=== PATIENT | male | born 1960 | race Caucasian/White ===

== ENCOUNTER 2023-03-21 14:54 | Inpatient (IN) ==
--- NOTE | 2023-03-21 15:05 | ED Triage Note ---
Date of Service March 21, 2023 Provider in Triage Author: Trip Kolb History of Present Illness This patient was briefly evaluated while in triage. An abbreviated physical exam was performed. This patient is a 62-year-old Male who presents to the ED for evaluation of shortness of breath and elevated blood pressure. Patient was recently on amoxicillin for possible Lyme disease. Patient reports that he did have negative Lyme testing. Patient reports worsening lower extremity weakness. Patient denies any chest pain, but does report dizziness. He also reports numbness and tingling of his fingertips and feet. Physical Exam CONSTITUTIONAL: Healthy and well nourished. HEENT: No scleral icterus or conjunctival injection. RESPIRATORY: Clear to auscultation bilaterally with no wheezing, crackles, rhonchi or stridor. CARDIOVASCULAR: Regular rate and rhythm with no murmurs, rubs or gallops. MUSCULOSKELETAL: Full range of motion of all joints without discomfort. No peripheral edema appreciated. HEMATOLOGIC: No ecchymosis or petechiae. PSYCHIATRIC: Positive affect. NEUROLOGIC: Lower extremities are sensory intact. Initial orders for labs and / or imaging were placed and patient was placed in the waiting area until a bed is available. Please see further documentation for the full ED course.
--- NOTE | 2023-03-21 15:42 | XRay Report ---
XR chest 1V not portable CLINICAL HISTORY: weakness, HTN COMPARISON STUDY: No previous studies for comparison. FINDINGS: Lung volumes are normal. Lungs are clear. There is no pneumothorax or pleural effusion. The re is mild cardiomegaly. There is no evidence for pulmonary edema. IMPRESSION: No acute cardiopulmonary findings. Mild cardiomegaly. ACT 112: Negative or not required by law. Electronically signed by: Sami Collazo M.D. 03/21/2023 3:41 PM
[2023-03-21 16:39] LABS: Basophils # (auto) 0.05 K/uL (0.00-0.20); Basophils % (auto) 0.8 %; Eosinophils # (auto) 0.13 K/uL (0.00-0.50); Eosinophils % (auto) 2.1 %; Hematocrit (blood only) 43.7 % (42.0-52.0); Hemoglobin 14.7 g/dl (14.0-18.0); Immature Granulocytes # (auto) 0.01 K/uL (0.01-0.20); Immature Granulocytes % (auto) 0.2 %; Lymphocytes # (auto) 1.08 K/uL (1.20-3.40); Lymphocytes % (auto) 17.2 %; Mean Corpuscular Hemoglobin 29.6 pg (25.0-34.0); Mean Corpuscular Hgb Conc 33.6 g/dL (32.0-36.0); Mean Corpuscular Volume 87.9 fL (80.0-100.0); Mean Platelet Volume 11.4 fL (9.4-12.4); Monocytes # (auto) 0.66 K/uL (0.11-0.59); Monocytes % (auto) 10.5 %; Neutrophils # (auto) 4.34 K/uL (1.40-6.50); Neutrophils % (auto) 69.2 %; Platelet Count 151 K/uL (130-400); RDW Standard Deviation 45.2 fL (36.4-46.3); Red Blood Count 4.97 M/uL (4.70-6.10); White Blood Count 6.27 K/ul (4.8-10.8)
[2023-03-21 16:57] LABS: Alanine Aminotransferase 21 U/L (7-52); Albumin Globulin Ratio 1.6 (0.9-2); Albumin Level 4.5 gm/dl (3.4-5.0); Alkaline Phosphatase 63 U/L (34-104); Anion Gap 8 (3-11); Aspartate Aminotransferase 16 U/L (13-39); BUN Creatinine Ratio 19.3 (10-20); Bilirubin,Total 0.5 mg/dl (0.2-1.0); Blood Urea Nitrogen 29 mg/dl (6-23); Calcium 9.7 mg/dl (8.6-10.3); Carbon Dioxide 27 mmol/L (21-32); Chloride 106 mmol/L (98-107); Est GFR (African American) 56.2 ml/min; Est GFR (Non-African American) 48.5 ml/min; Globulin 2.9 gm/dl (2.5-4.0); Glucose 142 mg/dl (70-99(Fasting)); Magnesium 1.9 mg/dl (1.7-2.4); Sodium 141 mmol/L (136-145); Total Protein 7.4 gm/dl (6.0-8.3)
[2023-03-21 17:04] LABS: Troponin I High Sensitivity 38.7 pg/ml (0-20)
[2023-03-21] MEDS ORDERED: LABETALOL HCL IV 5 MG/ML 20ML IV STA (17:30)
--- NOTE | 2023-03-21 17:42 | Emergency Department Note ---
Impression & Plan Weakness, Hypertensive urgency, Elevated troponin I level ED Provider Note NAME: AMAN RHOADES AGE: 62 SEX: M : 1960 ARRIVES VIA: Walk-In INFORMANT: Patient, ED PROVIDER(S): Iván Rose DO CHIEF COMPLAINT: Weakness HPI: The patient is a 62-year-old male who presented to the emergency department for an evaluation of generalized weakness. The patient's notes generalized weakness that has been going on for many months. The patient has had workups previously as an outpatient. He states his symptoms are continuing to worsen. He is afraid that he has a tickborne illness. The patient is noticed lower extremity weakness as well as upper extremity weakness. He also notices numbness and tingling in his upper and lower extremities. He had a workup which included neuroimaging as well as a workup by a neurologist. The patient states he is noticed his blood pressure has been difficult to manage. He has been compliant with his outpatient medications. He came to the emergency department today because of these ongoing symptoms. He denies having any chest pain. ROS: See above HPI for pertinent positives & negatives. A total of 10 systems reviewed and were otherwise negative. PAST MEDICAL HISTORY: See Below PAST SURGICAL HISTORY: See Below FAMILY HISTORY: See Below SOCIAL HISTORY: See Below HOME MEDICATIONS: See Below ALLERGIES: See Below VITALS: See Below PHYSICAL EXAMINATION: GENERAL: Patient is awake alert in no acute distress patient is resting comfortably and showing no signs of anxiety EYES: The conjunctivae are clear. The pupils are round and reactive. EARS, NOSE, MOUTH AND THROAT: The nose is without any evidence of any deformity. NECK: The neck is nontender and supple. RESPIRATORY: Normal respiratory effort is noted there is no evidence of wheezing rhonchi or rales CARDIOVASCULAR: Regular rate and rhythm noted there no murmurs rubs or gallops normal S1 normal S2. GASTROINTESTINAL: The abdomen is soft. Abdomen is nontender. MUSCULOSKELETAL/EXTREMITIES: There is no evidence of gross deformity full range of motion is noted in the hips and shoulders. SKIN: Skin is warm and dry. Pedal edema was noted bilaterally NEUROLOGIC: Patient is awake alert and oriented x3 strength is symmetric patellar reflexes are 2+ bilaterally MEDICAL DECISION MAKING: The patient is a 62-year-old male who has a history of hypertension who presented to the emergency department with multiple complaints. The patient's had ongoing symptoms for many months although today he seems to have some new findings including an elevation in his troponin as well as elevated blood pressure. I discussed the patient's laboratory and radiographic studies with him. Given his findings I discussed his condition with the on-call [facility] hospitalist group. They have agreed to evaluate the patient in the emergency department for further management and disposition. Triage Nursing notes reviewed. Prior medical records reviewed Vital Signs: reviewed and remarkable for elevated blood pressure. Differential diagnosis: Infection, dehydration, metabolic abnormality, hypo/hyperglycemia, electrolyte disturbance, anemia, hypoxia, cardiac sources, intracerebral event, toxicologic, neurologic, as well as other pathologies. ER treatment provided: See below Diagnostics interpreted by me: ECG: EKG was obtained in the emergency department. My interpretation is sinus rhythm at 74 bpm. Right bundle branch block pattern was noted. First-degree AV block was noted. No previous tracing was available. Cardiac Monitoring: An order was placed for continuous cardiac monitoring. The monitor shows a rate of 71 bpm with sinus rhythm. Laboratory studies: As stated above and show below. Imaging studies: See below. Radiographic imaging was reviewed by myself Consultation(s): I discussed this case with Dr. Saldana who is on-call for the [facility] hospitalist group. Past Med/Surg History Medical History Vitamin B12 deficiency Elevated blood sugar Numbness and tingling of both lower extremities Numbness and tingling in both hands Abnormal ankle brachial index Nonhealing nonsurgical wound PVD (peripheral vascular disease) Hypertension H/o Lyme disease Social History Smoking Status: Never smoker Hx Alcohol Use: No Hx Substance Use: No Preferred Language: Syriac Communication Ability: Effective Visual Impairment: No Limitations Hearing Ability: Normal Financial Intern Required: No Beliefs That Will Affect Care: None marital status: Unknown Current Living Situation: Family Current Living Situation Comment: living with brother and sister in law current occupational status: unemployed Feels Safe at Home: Yes caffeine: Yes during the past year weight has: remained stable Assistive Devices: Walker and Wheelchair Allergies Allergies Allergy/AdvReac Type Severity Reaction Status Date / Time Doxycycline Allergy Mild Urticaria Uncoded 03/21/23 20:23 Home Meds Home Medications Medication Instructions Recorded Confirmed losartan 50 mg tablet 50 mg PO DAILY 03/03/23 03/21/23 metronidazole 500 mg tablet 500 mg PO DAILY 03/03/23 03/21/23 minocycline 100 mg capsule 200 mg PO DAILY 03/03/23 03/21/23 ibuprofen 200 mg tablet 400 mg PO Q6H PRN Pain 03/21/23 03/21/23 Results & Data (ED) Vital Signs Vital Signs - 24 hr 03/21/23 15:00 03/21/23 17:48 03/21/23 17:52 Temperature 36.4 C L Temperature Source Temporal Artery Scan Temporal Artery Scan Pulse Rate 87 Pulse Rate [Apical] 62 Pulse Rate from SpO2 Sensor Pulse Rhythm [Apical] Regular Pulse Strength [Apical] Normal Respiratory Rate 18 13 Respiratory Effort / Characteristics Non-Labored Spontaneous Respiratory Depth Normal Normal Respiratory Pattern Regular Blood Pressure 236/134 H Blood Pressure [Right Arm] 236/170 H Blood Pressure Mean 168 Blood Pressure Mean [Right Arm] 192 Blood Pressure Position Sitting Blood Pressure Position [Right Arm] Semi-fowlers Pulse Oximetry 97 98 98 Oxygen Delivery Method Room Air Room Air Room Air Sepsis Recent Fever Within 48 Hours No Sepsis New/Unexplained Change in Mental Status No Sepsis Action Taken by Nursing No Action Required 03/21/23 17:52 03/21/23 17:54 03/21/23 18:04 Temperature Temperature Source Pulse Rate 58 L 57 L Pulse Rate [Apical] Pulse Rate from SpO2 Sensor 60 Pulse Rhythm [Apical] Pulse Strength [Apical] Respiratory Rate 16 Respiratory Effort / Characteristics Respiratory Depth Respiratory Pattern Blood Pressure 200/126 H Blood Pressure [Right Arm] Blood Pressure Mean 150 Blood Pressure Mean [Right Arm] Blood Pressure Position Blood Pressure Position [Right Arm] Pulse Oximetry 98 Oxygen Delivery Method Room Air Sepsis Recent Fever Within 48 Hours Sepsis New/Unexplained Change in Mental Status Sepsis Action Taken by Nursing 03/21/23 18:13 03/21/23 18:15 03/21/23 19:01 Temperature Temperature Source Pulse Rate 56 L 55 L 59 L Pulse Rate [Apical] Pulse Rate from SpO2 Sensor 52 L Pulse Rhythm [Apical] Pulse Strength [Apical] Respiratory Rate 19 15 Respiratory Effort / Characteristics Respiratory Depth Respiratory Pattern Blood Pressure 193/108 H 193/108 H 227/113 H Blood Pressure [Right Arm] Blood Pressure Mean 136 151 Blood Pressure Mean [Right Arm] Blood Pressure Position Blood Pressure Position [Right Arm] Pulse Oximetry 97 Oxygen Delivery Method Sepsis Recent Fever Within 48 Hours Sepsis New/Unexplained Change in Mental Status Sepsis Action Taken by Nursing 03/21/23 19:28 03/21/23 19:30 Temperature Temperature Source Pulse Rate 63 61 Pulse Rate [Apical] Pulse Rate from SpO2 Sensor 61 61 Pulse Rhythm [Apical] Pulse Strength [Apical] Respiratory Rate 22 21 Respiratory Effort / Characteristics Respiratory Depth Respiratory Pattern Blood Pressure 214/112 H 179/121 H Blood Pressure [Right Arm] Blood Pressure Mean 146 140 Blood Pressure Mean [Right Arm] Blood Pressure Position Blood Pressure Position [Right Arm] Pulse Oximetry 95 97 Oxygen Delivery Method Sepsis Recent Fever Within 48 Hours Sepsis New/Unexplained Change in Mental Status Sepsis Action Taken by [facility] Medications Current Medication List: was personally reviewed by me Laboratory Data Attestation: I reviewed the patient's lab results. 03/21/23 16:13 03/21/23 16:13 Lab Results 03/21/23 03/21/23 Range/Units 16:13 19:20 WBC 6.27 (4.8-10.8) K/ul RBC 4.97 (4.70-6.10) M/uL Hgb 14.7 (14.0-18.0) g/dl Hct 43.7 (42.0-52.0) % MCV 87.9 (80.0-100.0) fL MCH 29.6 (25.0-34.0) pg MCHC 33.6 (32.0-36.0) g/dL RDW Std Deviation 45.2 (36.4-46.3) fL RDW Coeff of [place] 14.0 (11.5-14.5) % Plt Count 151 (130-400) K/uL MPV 11.4 (9.4-12.4) fL Immature Gran % (Auto) 0.2 % Neut % (Auto) 69.2 % Lymph % (Auto) 17.2 % [place] % (Auto) 10.5 % Eos % (Auto) 2.1 % Baso % (Auto) 0.8 % Neut # (Auto) 4.34 (1.40-6.50) K/uL Lymph # (Auto) 1.08 L (1.20-3.40) K/uL [place] # (Auto) 0.66 H (0.11-0.59) K/uL Eos # (Auto) 0.13 (0.00-0.50) K/uL Baso # (Auto) 0.05 (0.00-0.20) K/uL Immature Gran # (Auto) 0.01 (0.01-0.20) K/uL Sodium 141 (136-145) mmol/L Potassium 4.0 (3.5-5.1) mmol/L Chloride 106 (98-107) mmol/L Carbon Dioxide 27 (21-32) mmol/L Anion Gap 8 (3-11) BUN 29 H (6-23) mg/dl Creatinine 1.50 H (0.6-1.4) mg/dl Est Cr Clr Drug Dosing Not Reportable Est GFR ( Amer) 56.2 ml/min Est GFR (Non-Af Amer) 48.5 ml/min BUN/Creatinine Ratio 19.3 (10-20) Glucose 142 H (70-99(Fasting)) mg/dl Calcium 9.7 (8.6-10.3) mg/dl Magnesium 1.9 (1.7-2.4) mg/dl Total Bilirubin 0.5 (0.2-1.0) mg/dl AST 16 (13-39) U/L ALT 21 (7-52) U/L Alkaline Phosphatase 63 (34-104) U/L Total Creatine Kinase 58 (30-223) U/L Troponin I High Sens 38.7 H 42.1 H (0-20) pg/ml Total Protein 7.4 (6.0-8.3) gm/dl Albumin 4.5 (3.4-5.0) gm/dl Globulin 2.9 (2.5-4.0) gm/dl Albumin/Globulin Ratio 1.6 (0.9-2) TSH 1.770 (0.300-4.500) uIu/ml Administered Medications Nicardipine HCl 25 mg/ Sodium (Chloride) 250 mls @ 50 mls/hr IV .Q5H [facility]; Protocol Stop: 04/20/23 18:29 Last Titration: 03/21/23 21:36 Dose: 5 mg/hr, 50 mls/hr Documented By: Titration: 03/21/23 21:22 Dose: 7.5 mg/hr, 75 mls/hr Documented By: Titration: 03/21/23 21:21 Dose: 10 mg/hr, 100 mls/hr Documented By: Titration: 03/21/23 20:03 Dose: 7.5 mg/hr, 75 mls/hr Documented By: Admin: 03/21/23 19:17 Dose: 5 mg/hr, 50 mls/hr Documented By: CPB Co-signed By: DUNIA Discontinued Medications Aspirin (Aspirin 81 Mg Chew) 324 mg PO NOW STA Stop: 03/21/23 20:22 Last Admin: 03/21/23 20:37 Dose: 324 mg Documented By: CPB Labetalol HCl (Labetalol Hcl Iv 5 Mg/Ml 20ml) 10 mg IV NOW STA Stop: 03/21/23 17:31 Last Admin: 03/21/23 17:49 Dose: 10 mg Documented By: DUNIA Co-signed By: Imaging Data Attestation: I personally reviewed and interpreted this imaging study as follows: My Impression: CT the brain was obtained in the emergency department. My interpretation is no free air or signs of bowel obstruction, final report below. 1 view chest x-ray was obtained in the emergency department. My interpretation is no free air or definite infiltrate, final report below Radiologist's Impression: Chest X-Ray 03/21/23 15:05 XR chest 1V not portable CLINICAL HISTORY: weakness, HTN COMPARISON STUDY: No previous studies for comparison. FINDINGS: Lung volumes are normal. Lungs are clear. There is no pneumothorax or pleural effusion. There is mild cardiomegaly. There is no evidence for pulmonary edema. IMPRESSION: No acute cardiopulmonary findings. Mild cardiomegaly. ACT 112: Negative or not required by law. Electronically signed by: Sami Collazo M.D. 03/21/2023 3:[address] 03/21/23 17:30 CT OF THE HEAD WITHOUT CONTRAST CLINICAL HISTORY: Weakness. COMPARISON STUDY: No previous studies for comparison. CT DOSE: 1250.21 mGy.cm TECHNIQUE: Helical axial images of the head were obtained without IV contrast. Automated exposure control was utilized for the study. A dose lowering technique was utilized adhering to the principles of ALARA. FINDINGS: This study is mildly compromised by motion artifact. No acute intracranial hemorrhage, midline shift or mass effect is present. Ventricular system is unremarkable. Basal cisterns are patent. There are no extra-axial collections. 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 There is an additional 2.4 cm hypodensity within the left cerebellar hemisphere. There may be an old lacunar infarct within the right cerebellar hemisphere. White matter hypodensities suggest small vessel disease. No calvarial fractures are present. IMPRESSION: 1. No acute intracranial hemorrhage or mass effect. 2. Hypodensities within the bilateral cerebellar hemispheres. Several of these likely reflect small old infarcts. However, a 2.4 cm hypodense focus within the left cerebellar hemisphere favors an age indeterminate infarct. MRI could be obtained as indicated. 3. Exam mildly compromised by motion artifact. ACT 112: Negative or not required by law. Electronically signed by: Sami Collazo M.D. 03/21/2023 6:37 PM Renal Artery Duplex 03/21/23 18:41 Exam(s): US VASCULAR EXAM: US Duplex Arterial/Venous of the Kidneys, Complete CLINICAL HISTORY: Reason for exam: severe persistent HTN. TECHNIQUE: Real-time duplex ultrasound scan of the kidneys integrating B-mode two- dimensional vascular structure, Doppler spectral analysis and color flow Doppler imaging. COMPARISON: No relevant prior studies available. FINDINGS: Right renal arteries: Peak systolic velocity within the right renal artery is 84 cm/s. Normal waveform. Left renal arteries: The proximal left renal artery is not visualized. Within the visualized portion of the left renal artery the peak systolic velocity is 65 cm/s. Renal veins: Main left renal vein is patent. Main right renal vein is patent. Right kidney: Right kidney measures 11.9 cm. No hydronephrosis. No tardus parvus waveforms within bilateral renal parenchyma. Left kidney: Left kidney measures 11.9 cm. IMPRESSION: No acute findings in the renal vasculature. No elevated velocities within the visualized main renal arteries. No evidence of hemodynamically significant renal artery stenosis. Electronically signed by: Luis Aaron M.D. 03/21/23 21:32 PM Discharge Plan Visit Data Chief Complaint: Shortness of Breath/Dyspnea Stated Complaint: CHEST PRESSURE, HYPERTENSION, BLE NUMB, WEAK ED Provider: Iván Rose Discharge Problem: Weakness, Hypertensive urgency, Elevated troponin I level Patient Disposition: Admitted As Inpatient Discharge Instructions Interventions: ED Discharge Assessment Last Done: 03/21/23 21:03
--- NOTE | 2023-03-21 18:05 | History & Physical Report ---
Date of Service March 21, 2023 Assessment & Plan (1) Weakness: Plan: Bilateral lower extremity weakness ? CVA versus lumbar Chronic weakness of the lower extremities which is bilaterally worse morning of 03/21/2023. Has been chronically declining for several weeks. Patient versus chronic right hip pain which limits his hip flexion and ambulation. Does feel his right leg has been more weak than the left since waking up this morning No bowel/bladder incontinence, no saddle anesthesia. Has neuropathy of the lower extremities bilaterally without asymmetry and which has not changed Endorses some recent difficulty with balance -Patient with lacunar old strokes and age-indeterminate cerebellar stroke on CT. No MCA or large territory stroke. Patient reports that he has difficulty laying flat for MRIs. With multiple risk factors and old and age-indeterminate stroke noted on CT and uncontrolled hypertension requires additional stroke evaluation on admission .to minimize MRI time and contrast with? RAZA/CKD MRI/A brain carotid ultrasounds ordered, MRI of the lumbar spine ordered Due to difficult to control hypertension and bradycardia will target initial control with nicardipine drip. Due to possible acute/subacute stroke discussed goal parameters with neurology. Recommend targeting goal of [id number] at this time. Agree with aspirin and atorvastatin. Appreciate recommendations No focal tenderness to palpation at hip, x-ray is pending (2) Hypertensive urgency: Plan: Hypertensive urgency With evidence of lacunar strokes on CTs, and renal dysfunction Patient with difficult to control hypertension and beta-blockers/CCB limited by bradycardia. Patient reports a history of Lyme disease and has first-degree heart block. Reports he has had no blood pressure improvement in the past on carvedilol, metoprolol, losartan, lisinopril. Renal artery Dopplers ordered for JONY evaluation. If renal function stable may trial spironolactone, does report he has been on a potassium supplement for low potassium with resistant hypertension in the past (3) PVD (peripheral vascular disease): Plan: With poor wound healing and bilateral grafts as depicted in PE Arterial Dopplers ordered with ABIs, pending. No acute/emergent limb ischemia on admitting assessment (4) History of CVA (cerebrovascular accident): Plan: With lacunar strokes likely due to uncontrolled hypertension, age- indeterminate cerebellar stroke with evaluation pending as above. Aspirin/statin/hypertensive management as noted (5) Lyme disease: Plan: Patient reports he has had history of multiple tick bites and chronic Lyme disease. Has been on multiple antibiotics including amoxicillin doxycycline and atovaquone. Recent Lyme testing was negative. Patient reports he had improvement with his symptoms with antibiotics previously, but not recently. Does have history of first-degree heart block which remains present No additional treatment for Lyme indicated at this time. Did discuss that ongoing antibiotics for "chronic Lyme "was not with evidence-based support, although Lyme disease may cause chronic sequelae and some patients this does not represent ongoing infection. Patient agreeable to treatment as above and deferring antibiotics at this (6) RAZA (acute kidney injury): Plan: Unclear baseline. Creatinine 1.41 on last outpatient check, 1.5 on admission. Likely hypertensive nephropathy, DDx includes diabetic nephropathy. UA/urine protein (7) DM2 (diabetes mellitus, type 2): Plan: Patient has a A1c less than 7% diet controlled.. Prefers to avoid insulin if possible, will follow blood sugar checks as needed. He is n.p.o. pending Dopplers. SSI insulin at this time with goal [id number] Plan DVT prophylaxis: Heparin due to RAZA Disposition: PCU CODE STATUS: Full code Diet: N.p.o. pending renal Dopplers, heart healthy/DM2 once History of Present Illness Primary Care Provider: Janessa Fowler is a 62-year-old male with a past medical history of hypertensive urgency, peripheral vascular disease Patient last seen by PCP 01/2023. Was noted to have a blood pressure of 208/110 at that time and reported "this was normal for me ". Did discuss that this represented uncontrolled hypertension at that time, and had not had any improvement on losartan. 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 No unilateral symptoms. Extensive counseling was had at that time due to risk of ID, CVA, renal damage due to uncontrolled hypertension however patient insistent that his symptoms are due to tickborne illnesses and declined any additional testing or medications for blood pressure control at that visit. Also has peripheral vascular disease with recurrent decubitus ulcer requiring wound VAC treatment, again insistent that this was due to tickborne illness and not hypertension or diabetes and declined additional workup including arterial duplex studies and diabetes testing. Did agree to an A1c but was adamant he would not take any prescription medications. He did however obtain Plaquenil [id number] for the treatment of chronic Lyme/babesiosis which she feels was the cause of his symptoms. Patient followed up with neurology 03/17/2023 for uncontrolled BP greater than 220/120 refusing ER admission who was seen for numbness and tingling of his hands and feet for 2 years without improvement on gabapentin/Lyrica. Distant EMG consistent with diabetic neuropathy, last A1c was 6.3%. Patient was seen in the ER for weakness for several months. Has had progressively worsening symptoms and is afraid of tickborne illness. He has bilateral lower and upper extremity weakness. X-ray x-ray is without acute findings Creatinine is 1.5, last 1.4. Troponin 38.7 with no baseline. Viral panel pending. Lyme disease IgG/IgM - 03/17/2023 Family members have had bartonella, erlichiosis, Tried amoxicillin, augmentin, and doxycycline with no improvement in his strength in the hands and feet. Dropoff in strength in hands, feet 3 weeks ago, picked up by brother 3 months ago. Walks with a walker and had 'barely any strength left at all.' BP generally high BP 5.9% BSGs 100-103 Carvedilol and losartan cause his [place], brings his BP down to 235 from 280s. Cr slightly elevated at baseline 'slightly above normal'. Has had intermittent R chest pressure, none currently and declines pain Graft to poorly healing wound in left side posterior calf. This was done in [facility], also had a graft in [place] on his RIGHT side. heals poorly and feet tend to be very dry. Pt was using 720nm blue light to heal, found this to be the only helpful tx also has many disagreements with [facility] regarding this No fevers, but is cold 'all of the time. Never get warm.' Feels he does not sweat, is not wet but evaporates fluid quickly. Had a [facility] some R eye blurriness/weakness. Had had double vision for 3-4 days while in [place] and at home. No history of strokes. Hx L minor stroke. Was started on BP meds. Cannot take morphine. Currently taking losartan, took today. Previously on plaquenil for chronic lyme, did not help at all. Atovaquone Medical History: Reviewed Medications: Reviewed Surgical History: Reviewed Family history: Reviewed Allergies: Reviewed Social History: No tobacco or ETOH Code Status: Full Code Allergies Allergy/AdvReac Type Severity Reaction Status Date / Time Doxycycline Allergy Mild Urticaria Uncoded 03/10/23 08:48 Home Medications Medication Instructions Recorded Confirmed Type azithromycin 250 mg tablet 250 mg PO DAILY 03/03/23 03/17/23 History hydroxychloroquine 200 mg tablet 200 mg PO DAILY 03/03/23 03/17/23 History losartan 50 mg tablet 50 mg PO DAILY 03/03/23 03/17/23 History metronidazole 500 mg tablet 500 mg PO DAILY 03/03/23 03/17/23 History minocycline 100 mg capsule 200 mg PO DAILY 03/03/23 03/17/23 History Past Med/Surg History Medical History Vitamin B12 deficiency Elevated blood sugar Numbness and tingling of both lower extremities Numbness and tingling in both hands Abnormal ankle brachial index Nonhealing nonsurgical wound PVD (peripheral vascular disease) Hypertension H/o Lyme disease Social History Smoking Status: Never smoker Hx Alcohol Use: No Hx Substance Use: No Preferred Language: [place] Communication Ability: Effective Visual Impairment: No Limitations Hearing Ability: Normal Metal Tile Lather Required: No Beliefs That Will Affect Care: None marital status: Unknown Current Living Situation: Family Current Living Situation Comment: living with brother and sister in law current occupational status: unemployed Feels Safe at Home: Yes caffeine: Yes during the past year weight has: remained stable Assistive Devices: Walker and Wheelchair Physical Exam 2 Physical Exam: General: A&Ox3. NAD. Cooperative. HEENT: Atraumatic, normocephalic. Vision/hearing intact. No visual field cuts. Pupils equal and reactive to light Pulm: CTAB A&P. -wheezes, -rales, -rhonchi. Symmetrical chest rise. No increased work of breathing. No respiratory distress. Cardiac: Regular, bradycardic, -mrg. Radial pulses intact and symmetrical. Abdominal: Nontender, nondistended, soft. BS present. Left hip flexion, ankle dorsiflexion/plantarflexion 5/5. Sensation soft touch is intact. No ankle clonus. Right lower extremity: Limited by discomfort at the hip, activates musculature but will not flex at the hip. Ankle dorsiflexion/plantarflexion 4/5. Sensation symmetrical with left. No saddle anesthesia LLE: RLE: RLE #2: Results & Data Results & Data Vital Signs (Past 12 Hours) Vital Signs Temp Pulse Pulse Resp BP BP Pulse Ox 03/21/23 17:54 58 L 03/21/23 17:52 03/21/23 17:52 98 03/21/23 17:48 62 13 236/170 H 98 03/21/23 15:00 36.4 C L 87 18 236/134 H 97 O2 Del Method 03/21/23 17:54 03/21/23 17:52 Room Air 03/21/23 17:52 Room Air 03/21/23 17:48 Room Air 03/21/23 15:00 Room Air PG Care Time/CCT Total # of Minutes Spent Total Time Spent with Patient: Total time spent is greater than 50% in coordination of care (as documented) at patient's floor/unit and/or counseling patient: Coding Level of Care Code 59008 INT INP/OBS CARE 3/75MIN Diagnoses Weakness R53.1 Hypertensive urgency I16.0 PVD (peripheral vascular disease) I73.9 History of CVA (cerebrovascular accident) Z86.73 Lyme disease A69.20 RAZA (acute kidney injury) N17.9 DM2 (diabetes mellitus, type 2) E11.9
[2023-03-21] MEDS ORDERED: STAT IV Infusion **Titration per Protocol STA (18:16)
--- NOTE | 2023-03-21 18:39 | CT Scan Report ---
CT OF THE HEAD WITHOUT CONTRAST CLINICAL HISTORY: Weakness. COMPARISON STUDY: No previous studies for comparison. CT DOSE: 1250.21 mGy.cm TECHNIQUE: Helical axial images of the head were obtained without IV contrast. Automated exposure con trol was utilized for the study. A dose lowering technique was utilized adhering to the principles o f ALARA. FINDINGS: This study is mildly compromised by motion artifact. No acute intracranial hemorrhage, midl ine shift or mass effect is present. Ventricular system is unremarkable. Basal cisterns are patent. T here are no extra-axial collections. Retrocerebellar CSF attenuation focus favors a gordo cisterna mag na. 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 There is an additional 2.4 cm hypodensity within the left cerebellar hemisphere. There may be an old lacunar infarct within the right cerebellar hemisphere. White matter hypodensities suggest small vessel disease. No calvarial f ractures are present. IMPRESSION: 1. No acute intracranial hemorrhage or mass effect. 2. Hypodensities within the bilateral cerebellar hemispheres. Several of these likely reflect small o ld infarcts. However, a 2.4 cm hypodense focus within the left cerebellar hemisphere favors an age in determinate infarct. MRI could be obtained as indicated. 3. Exam mildly compromised by motion artifact. ACT 112: Negative or not required by law. Electronically signed by: Sami Collazo M.D. 03/21/2023 6:37 PM
[2023-03-21 18:54] LABS: Adenovirus PCR Not Detected (NotDetected); Bordetella parapertussis PCR Not Detected (NotDetected); Bordetella pertussis PCR Not Detected (NotDetected); Chlamydia pneumoniae PCR Not Detected (NotDetected); Coronavirus 229E PCR Not Detected (NotDetected); Coronavirus CoV-2 (COVID19)PCR Not Detected (NotDetected); Coronavirus HKU1 PCR Not Detected (NotDetected); Coronavirus NL63 PCR Not Detected (NotDetected); Coronavirus OC43PCR Not Detected (NotDetected); Human Metapneumovirus PCR Not Detected (NotDetected); Influenza A PCR Not Detected (NotDetected); Influenza B PCR Not Detected (NotDetected); Mycoplasma pneumoniae PCR Not Detected (NotDetected); Parainfluenza Virus 1 PCR Not Detected (NotDetected); Parainfluenza Virus 2 PCR Not Detected (NotDetected); Parainfluenza Virus 3 PCR Not Detected (NotDetected); Parainfluenza Virus 4 PCR Not Detected (NotDetected); Respiratory Syncytial VirusPCR Not Detected (NotDetected); Rhinovirus/Enterovirus PCR Not Detected (NotDetected)
[2023-03-21] MEDS: niCARdipine 25 MG in SODIUM CHLORIDE 0.9% 240 ML IV SCH ×2 (19:17→23:36)
[2023-03-21] MEDS ORDERED: PHARMACIST DISCHARGE MED REC CONSULT PRN (19:17)
[2023-03-21 20:03] LABS: Troponin I High Sensitivity 42.1 pg/ml (0-20)
[2023-03-21] MEDS ORDERED: ASPIRIN 81 MG CHEW PO STA (20:21)
[2023-03-21] MEDS ORDERED: ACETAMINOPHEN 325 MG TAB PO PRN (21:02)
--- NOTE | 2023-03-21 21:33 | Ultrasound Report ---
Exam(s): US VASCULAR EXAM: US Duplex Arterial/Venous of the Kidneys, Complete CLINICAL HISTORY: Reason for exam: severe persistent HTN. TECHNIQUE: Real-time duplex ultrasound scan of the kidneys integrating B-mode two- dimensional vascular structure, Doppler spectral analysis and color flow Doppler imaging. COMPARISON: No relevant prior studies available. FINDINGS: Right renal arteries: Peak systolic velocity within the right renal artery is 84 cm/s. Normal waveform. Left renal arteries: The proximal left renal artery is not visualized. Within the visualized portion of the left renal artery the peak systolic velocity is 65 cm/s. Renal veins: Main left renal vein is patent. Main right renal vein is patent. Right kidney: Right kidney measures 11.9 cm. No hydronephrosis. No tardus parvus waveforms within bilateral renal parenchyma. Left kidney: Left kidney measures 11.9 cm. IMPRESSION: No acute findings in the renal vasculature. No elevated velocities within the visualized main renal arteries. No evidence of hemodynamically significant renal artery stenosis. Electronically signed by: Luis Aaron M.D. 03/21/23 21:32 PM
[2023-03-21] MEDS ORDERED: HYDROmorphone INJ 0.5 MG/0.5 ML SYR IV STA (23:02)
[2023-03-22 06:10] LABS: Basophils # (auto) 0.04 K/uL (0.00-0.20); Basophils % (auto) 0.6 %; Eosinophils # (auto) 0.15 K/uL (0.00-0.50); Eosinophils % (auto) 2.3 %; Hematocrit (blood only) 40.3 % (42.0-52.0); Hemoglobin 13.2 g/dl (14.0-18.0); Immature Granulocytes # (auto) 0.02 K/uL (0.01-0.20); Immature Granulocytes % (auto) 0.3 %; Lymphocytes # (auto) 1.25 K/uL (1.20-3.40); Mean Corpuscular Hemoglobin 28.7 pg (25.0-34.0); Mean Corpuscular Hgb Conc 32.8 g/dL (32.0-36.0); Mean Corpuscular Volume 87.6 fL (80.0-100.0); Monocytes % (auto) 12.2 %; Neutrophils # (auto) 4.31 K/uL (1.40-6.50); Neutrophils % (auto) 65.6 %; Platelet Count 134 K/uL (130-400); RDW Coefficient of Variation 14.3 % (11.5-14.5); RDW Standard Deviation 45.8 fL (36.4-46.3); White Blood Count 6.57 K/ul (4.8-10.8)
[2023-03-22 06:26] LABS: BUN Creatinine Ratio 16.4 (10-20); Calcium 8.9 mg/dl (8.6-10.3); Chol HDL Ratio 4.1 (0-5); Creatinine Clr Calc Pharmacy 75.2 ml/min; Est GFR (African American) 61.1 ml/min; Est GFR (Non-African American) 52.7 ml/min; Potassium 3.4 mmol/L (3.5-5.1)
--- NOTE | 2023-03-22 07:08 | XRay Report ---
XR hip RT 2V w pelvis CLINICAL HISTORY: R hip pain TECHNIQUE: 2 views of the right hip and single frontal view of the pelvis were obtained. Comparison: None available at the time of this dictation. FINDINGS: There is no evidence of an acute fracture. Severe degenerative changes are seen at the right hip join t with moderate degenerative changes in the left hip. Posterior fixation hardware is seen in the lumb osacral spine. No soft tissue abnormality is seen. IMPRESSION: Severe degenerative changes in the right hip joint without evidence of acute abnormality. ACT 112: Negative or not required by law. Electronically signed by: Momo Valdez M.D. 03/22/2023 7:07 AM
--- NOTE | 2023-03-22 07:34 | Ultrasound Report ---
BILATERAL CAROTID DOPPLER STUDY HISTORY: Weakness. Abnormal head CT. Possible stroke. ?CVA COMPARISON: None. TECHNIQUE: Real-time, grayscale, and color Doppler sonography of the carotid arteries was performed. Imaging reviewed in the transverse and longitudinal planes. All measurements were calculated based on NASCET criteria. FINDINGS: Antegrade flow is seen in the bilateral vertebral arteries. The peak systolic velocity within the right external carotid artery is 202 cm/s.. The peak systolic velocity within the right ICA is 82 cm/s. The right systolic ratio is 0.8. The peak systolic velocity within the left ICA is 70 cm/s. The left systolic ratio is 0.6. IMPRESSION: 1. No hemodynamically significant stenosis seen within the bilateral common or internal carotid arter ies. 2. Moderate stenosis within the right external carotid artery. ACT 112: Negative or not required by law. Electronically signed by: Satish Ayala M.D. 03/22/2023 7:32 AM
--- NOTE | 2023-03-22 07:56 | CT Scan Report ---
CT head/brain wo con CLINICAL HISTORY: stroke alert Technique: Contiguous axial CT images of the head were acquired from the base of the skull to the wendy win without intravenous contrast administration. Images were viewed in brain, subdural and [facility] . Automated dose lowering techniques and/or adjustment according to patient size were utilized for this exam. Comparison: Comparison is made to CT head 03/21/2023 Findings: Areas of decreased attenuation are present in the periventricular and subcortical white matter bilate rally consistent with small vessel ischemic disease. Generalized cerebral atrophy with commensurate e nlargement of the ventricles, sulci, and cisterns is also present. There is no acute intracranial hem orrhage or evidence of acute territorial infarction. No shift of the midline structures, mass effect, or extra-axial abnormalities are shown. Atherosclerotic calcifications are present in the intracran ial segments of the internal carotid arteries. A few foci of encephalomalacia are again seen most pro minently in the left cerebellum compatible with old infarcts. Imaged portions of the paranasal sinuses and mastoid air cells are clear. The orbits appear normal. There are no acute fractures of the calvaria or scalp swelling. Impression: No acute intracranial hemorrhage, no evidence of acute territorial infarction or other acute intracra nial disease process. ACT 112: Negative or not required by law. Electronically signed by: Momo Valdez M.D. 03/22/2023 7:55 AM
[2023-03-22 08:15] LABS: INR 1.1 (0.9-1.1); Prothrombin Time 11.9 Seconds (9.0-12.0)
--- NOTE | 2023-03-22 08:33 | Electrocardiogram Report ---
Test Reason : Blood Pressure : / mmHG Vent. Rate : 074 BPM Atrial Rate : 000 BPM P-R Int : 000 ms QRS Dur : 136 ms QT Int : 404 ms P-R-T Axes : 000 102 009 degrees QTc Int : 448 ms Poor data quality, interpretation may be adversely affected Sinus rhythm with 1st degree A-V block Right bundle branch block Nonspecific T wave abnormality Inferior leads Abnormal ECG No previous ECGs available Confirmed by James Alvarez ([id number]) on 03/22/2023 8:33:18 AM Referred By: REFERRED SELF Confirmed By:James Alvarez
[2023-03-22] MEDS ORDERED: CLOPIDOGREL BISULFATE 300 MG TAB PO STA (08:35)
--- NOTE | 2023-03-22 08:37 | Hospitalist Progress Note ---
Date of Service March 22, 2023 Assessment & Plan (1) Stroke-like symptoms: Plan: This morning the patient had a stroke alert He was noted to have garbled speech, left facial droop, left arm and leg weakness. During the episode the patient had blood pressure in the 220s/150s However, at 1 AM his blood pressure had dropped to 130/70s Head CT during the episode was negative for acute hemorrhage or infarct Teleneurology consulted This episode was most likely secondary to cerebral hypoperfusion from blood pressure being "too low" for him. He was seen by his PCP in January 2023 when his blood pressure was in the 200s/110s. He stated that this was normal blood pressure for him and declined antihypertensives. The blood pressure reading of 130/70 was probably too low for him and had most likely led to cerebral hypoperfusion leading to the strokelike symptoms. Will try to allow permissive hypertension and handle his blood pressure more gently. I will manage him with a Cardene drip with goal blood pressure no less than 180/100 Will keep his head end flat if he were to develop strokelike symptoms again to allow better perfusion to his brain. I will repeat his head CT in 24 hours Teleneurology had recommended aspirin and Plavix for 21 days but our in-house neurologist does not think that the Plavix is needed at this time. I will discontinue Plavix. He will be treated with aspirin, Lipitor PT/OT consulted Echocardiogram showed severe concentric LVH which is quite expected due to his longstanding high blood pressure. CTA of the head and neck were unremarkable. Carotid duplex was unremarkable. (2) Weakness: Plan: Bilateral lower extremity weakness ? CVA versus lumbar Chronic weakness of the lower extremities which is bilaterally worse morning of 03/21/2023. Has been chronically declining for several weeks. Patient versus chronic right hip pain which limits his hip flexion and ambulation. Does feel his right leg has been more weak than the left since waking up this morning No bowel/bladder incontinence, no saddle anesthesia. Has neuropathy of the lower extremities bilaterally without asymmetry and which has not changed Endorses some recent difficulty with balance -Patient with lacunar old strokes and age-indeterminate cerebellar stroke on CT. No MCA or large territory stroke. PT/OT consulted (3) Hypertensive urgency: Plan: Hypertensive urgency complicated by hypertensive heart disease and nephropathy With evidence of lacunar strokes on CTs, and renal dysfunction and severe concentric LVH Patient with difficult to control hypertension and beta-blockers/CCB limited by bradycardia. Patient reports a history of Lyme disease and has first-degree heart block. Reports he has had no blood pressure improvement in the past on carvedilol, metoprolol, losartan, lisinopril. Renal artery Dopplers ruled out renal artery stenosis. For the time being, we will treat him with IV Cardene drip with goal heart rate no less than 180/100 Will watch out for cerebral hypoperfusion Allow for permissive hypertension for the first 24 hours. (4) PVD (peripheral vascular disease): Plan: With poor wound healing and bilateral grafts as depicted in PE Arterial Dopplers ordered with ABIs, pending. No acute/emergent limb ischemia on admitting assessment (5) History of CVA (cerebrovascular accident): Plan: With lacunar strokes likely due to uncontrolled hypertension, age- indeterminate cerebellar stroke with evaluation pending as above. Aspirin/statin/hypertensive management as noted (6) Lyme disease: Plan: Patient reports he has had history of multiple tick bites and chronic Lyme disease. Has been on multiple antibiotics including amoxicillin doxycycline and atovaquone. Recent Lyme testing was negative. Patient reports he had improvement with his symptoms with antibiotics previously, but not recently. Does have history of first-degree heart block which remains present No additional treatment for Lyme indicated at this time. Did discuss that ongoing antibiotics for "chronic Lyme "was not with evidence-based support, alt ian Lyme disease may cause chronic sequelae and some patients this does not represent ongoing infection. Patient agreeable to treatment as above and deferring antibiotics at this (7) RAZA (acute kidney injury): Plan: Unclear baseline. Creatinine 1.41 on last outpatient check, 1.5 on admission. 1.4 today. Likely hypertensive nephropathy, DDx includes diabetic nephropathy. UA/urine protein (8) DM2 (diabetes mellitus, type 2): Plan: His A1c was 6.5 today. Continue sliding scale insulin Plan DVT prophylaxis: Heparin due to RAZA Disposition: Transfer from PCU to ICU CODE STATUS: Full code Diet: heart healthy/DM2 Admission and Anticipated Discharge Date Admission Date: March 21, 2023 Subjective I was informed by the nurse early this morning about new neurological symptoms of left-sided facial droop, left arm weakness. Immediately after, a stroke alert was called. I was at the patient's bedside within minutes. Patient indeed had a left-sided facial droop along with left arm and leg weakness. Patient was noted to have an elevated blood pressure of 220s/150s. A head CT was ordered that ruled out hemorrhage or an obvious infarct. Teleneurology was consulted. After patient came back from CT, his symptoms completely resolved within 15 minutes. Orders placed per teleneurology recommendations. Review of Systems Review of Systems: Other Unobtainable due to acute emergency stroke alert Physical Exam Physical Exam: General: Awake. Left facial droop noted. Garbled speech noted. Left arm and leg weakness noted. Heart: S1, S2/regular rate and rhythm, no murmur rubs or gallops Lungs: Clear to auscultation bilaterally. Normal effort Abdomen: Soft/nontender/nondistended. No hepatosplenomegaly Extremities: No clubbing/cyanosis. No edema Behavior: Appropriate, cooperative Results & Data Results & Data Vital Signs (Past 12 Hours) Vital Signs Temp Pulse Pulse Resp BP BP Pulse Ox 03/22/23 08:05 69 20 197/107 H 97 03/22/23 08:02 69 20 176/100 H 97 03/22/23 07:58 03/22/23 06:00 57 L 21 183/96 H 96 03/22/23 05:30 60 20 183/98 H 95 03/22/23 05:00 185/104 H 96 03/22/23 04:30 54 L 176/90 H 94 03/22/23 04:00 158/87 H 95 03/22/23 03:30 50 L 15 135/75 90 03/22/23 03:00 49 L 142/79 H 90 03/22/23 02:43 67 17 177/96 H 99 03/22/23 02:30 51 L 16 154/84 H 90 03/22/23 02:25 58 L 18 156/89 H 98 03/22/23 02:00 58 L 17 143/81 H 90 03/22/23 01:43 53 L 16 161/91 H 97 03/22/23 01:30 58 L 20 163/88 H 95 03/22/23 01:27 36.8 C 58 L 22 133/77 96 03/22/23 01:00 60 12 133/77 90 03/22/23 00:43 64 22 152/89 H 96 03/21/23 23:56 61 15 160/88 H 03/21/23 23:31 192/119 H 03/21/23 23:17 64 03/21/23 23:00 63 21 176/92 H 95 03/21/23 21:15 71 14 179/80 H 98 03/21/23 21:02 20 173/116 H 03/21/23 20:55 70 24 177/84 H 03/21/23 20:45 17 Pulse Ox O2 Del Method O2 Del Method 03/22/23 08:05 Room Air 03/22/23 08:02 Room Air 03/22/23 07:58 97 Room Air 03/22/23 06:00 03/22/23 05:30 03/22/23 05:00 03/22/23 04:30 03/22/23 04:00 03/22/23 03:30 03/22/23 03:00 03/22/23 02:43 03/22/23 02:30 03/22/23 02:25 03/22/23 02:00 03/22/23 01:43 03/22/23 01:30 03/22/23 01:27 Room Air 03/22/23 01:00 03/22/23 00:43 03/21/23 23:56 03/21/23 23:31 03/21/23 23:17 03/21/23 23:00 03/21/23 21:15 03/21/23 21:02 03/21/23 20:55 03/21/23 20:45 Laboratory Results Abnormal lab results 03/21/23 03/21/23 03/22/23 Range/Units 16:13 19:20 05:35 RBC 4.60 L (4.70-6.10) M/uL Hgb 13.2 L (14.0-18.0) g/dl Hct 40.3 L (42.0-52.0) % Lymph # (Auto) 1.08 L (1.20-3.40) K/uL [place] # (Auto) 0.66 H 0.80 H (0.11-0.59) K/uL Potassium 3.4 L (3.5-5.1) mmol/L BUN 29 H (6-23) mg/dl Creatinine 1.50 H (0.6-1.4) mg/dl Glucose 142 H 117 H (70-99(Fasting)) mg/dl Troponin I High Sens 38.7 H 42.1 H (0-20) pg/ml Diagnostic Findings Chest X-Ray 03/21/23 15:05 XR chest 1V not portable CLINICAL HISTORY: weakness, HTN COMPARISON STUDY: No previous studies for comparison. FINDINGS: Lung volumes are normal. Lungs are clear. There is no pneumothorax or pleural effusion. There is mild cardiomegaly. There is no evidence for pulmonary edema. IMPRESSION: No acute cardiopulmonary findings. Mild cardiomegaly. ACT 112: Negative or not required by law. Electronically signed by: Sami Collazo M.D. 03/21/2023 3:[address] 03/21/23 17:30 CT OF THE HEAD WITHOUT CONTRAST CLINICAL HISTORY: Weakness. COMPARISON STUDY: No previous studies for comparison. CT DOSE: 1250.21 mGy.cm TECHNIQUE: Helical axial images of the head were obtained without IV contrast. Automated exposure control was utilized for the study. A dose lowering technique was utilized adhering to the principles of ALARA. FINDINGS: This study is mildly compromised by motion artifact. No acute intracranial hemorrhage, midline shift or mass effect is present. Ventricular system is unremarkable. Basal cisterns are patent. There are no extra-axial collections. 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 There is an additional 2.4 cm hypodensity within the left cerebellar hemisphere. There may be an old lacunar infarct within the right cerebellar hemisphere. White matter hypodensities suggest small vessel disease. No calvarial fractures are present. IMPRESSION: 1. No acute intracranial hemorrhage or mass effect. 2. Hypodensities within the bilateral cerebellar hemispheres. Several of these likely reflect small old infarcts. However, a 2.4 cm hypodense focus within the left cerebellar hemisphere favors an age indeterminate infarct. MRI could be obtained as indicated. 3. Exam mildly compromised by motion artifact. ACT 112: Negative or not required by law. Electronically signed by: Sami Collazo M.D. 03/21/2023 6:37 PM Renal Artery Duplex 03/21/23 18:41 Exam(s): US VASCULAR EXAM: US Duplex Arterial/Venous of the Kidneys, Complete CLINICAL HISTORY: Reason for exam: severe persistent HTN. TECHNIQUE: Real-time duplex ultrasound scan of the kidneys integrating B-mode two- dimensional vascular structure, Doppler spectral analysis and color flow Doppler imaging. COMPARISON: No relevant prior studies available. FINDINGS: Right renal arteries: Peak systolic velocity within the right renal artery is 84 cm/s. Normal waveform. Left renal arteries: The proximal left renal artery is not visualized. Within the visualized portion of the left renal artery the peak systolic velocity is 65 cm/s. Renal veins: Main left renal vein is patent. Main right renal vein is patent. Right kidney: Right kidney measures 11.9 cm. No hydronephrosis. No tardus parvus waveforms within bilateral renal parenchyma. Left kidney: Left kidney measures 11.9 cm. IMPRESSION: No acute findings in the renal vasculature. No elevated velocities within the visualized main renal arteries. No evidence of hemodynamically significant renal artery stenosis. Electronically signed by: Luis Aaron M.D. 03/21/23 21:32 PM Hip/Pelvis X-Ray 03/21/23 19:26 XR hip RT 2V w pelvis CLINICAL HISTORY: R hip pain TECHNIQUE: 2 views of the right hip and single frontal view of the pelvis were obtained. Comparison: None available at the time of this dictation. FINDINGS: There is no evidence of an acute fracture. Severe degenerative changes are seen at the right hip joint with moderate degenerative changes in the left hip. Posterior fixation hardware is seen in the lumbosacral spine. No soft tissue abnormality is seen. IMPRESSION: Severe degenerative changes in the right hip joint without evidence of acute abnormality. ACT 112: Negative or not required by law. Electronically signed by: Momo Valdez M.D. 03/22/2023 7:07 AM Carotid Doppler Study 03/21/23 19:27 BILATERAL CAROTID DOPPLER STUDY HISTORY: Weakness. Abnormal head CT. Possible stroke. ?CVA COMPARISON: None. TECHNIQUE: Real-time, grayscale, and color Doppler sonography of the carotid arteries was performed. Imaging reviewed in the transverse and longitudinal planes. All measurements were calculated based on NASCET criteria. FINDINGS: Antegrade flow is seen in the bilateral vertebral arteries. The peak systolic velocity within the right external carotid artery is 202 cm/s.. The peak systolic velocity within the right ICA is 82 cm/s. The right systolic ratio is 0.8. The peak systolic velocity within the left ICA is 70 cm/s. The left systolic ra thao is 0.6. IMPRESSION: 1. No hemodynamically significant stenosis seen within the bilateral common or internal carotid arteries. 2. Moderate stenosis within the right external carotid artery. ACT 112: Negative or not required by law. Electronically signed by: Satish Ayala M.D. 03/22/2023 7:[address] 03/22/23 07:31 CT head/brain wo con CLINICAL HISTORY: stroke alert Technique: Contiguous axial CT images of the head were acquired from the base of the skull to the vertex without intravenous contrast administration. Images were viewed in brain, subdural and bone windows. Automated dose lowering techniques and/or adjustment according to patient size were utilized for this exam. Comparison: Comparison is made to CT head 03/21/2023 Findings: Areas of decreased attenuation are present in the periventricular and subcortical white matter bilaterally consistent with small vessel ischemic disease. Generalized cerebral atrophy with commensurate enlargement of the ventricles, sulci, and cisterns is also present. There is no acute intracranial hemorrhage or evidence of acute territorial infarction. No shift of the midline structures, mass effect, or extra-axial abnormalities are shown. Atherosclerotic calcifications are present in the intracranial segments of the internal carotid arteries. A few foci of encephalomalacia are again seen most prominently in the left cerebellum compatible with old infarcts. Imaged portions of the paranasal sinuses and mastoid air cells are clear. The orbits appear normal. There are no acute fractures of the calvaria or scalp swelling. Impression: No acute intracranial hemorrhage, no evidence of acute territorial infarction or other acute intracranial disease process. ACT 112: Negative or not required by law. Electronically signed by: Momo Valdez M.D. 03/22/2023 7:55 AM Head CTA 03/22/23 08:32 CT ANGIOGRAM OF THE BRAIN CLINICAL HISTORY: Strokelike symptoms. COMPARISON STUDY: Unenhanced CT of the brain performed the same day 03/22/2023. TECHNIQUE: Following the IV administration of 117 cc of Optiray 320, CT angiogram of the brain was performed from the skull base to the vertex. Images are reviewed in the axial, sagittal, and coronal planes. 3-D MIPS images are created and assessed. IV contrast was administered without complication. A dose lowering technique was utilized adhering to the principles of ALARA. CT DOSE: 594.53 mGy.cm FINDINGS: Brain parenchyma: There is age-related involutional change noting moderate subcortical and periventricular microangiopathic disease. Small chronic infarcts are noted in the cerebellum. There is no evidence of hemorrhage, mass effect, or f acute territorial ischemia noting angiographic phase technique. There is no evidence of enhancing mass lesion on the angiogram phase images. No extra-axial fluid collection is seen. Blackman-white matter differentiation is preserved. Ventricles, sulci, and cisterns: Prominent secondary to positional change. Megacisterna magna is incidentally noted. CT angiogram of the brain: There is atherosclerotic calcification of the cavernous carotid and vertebral arteries. The internal carotid arteries are widely patent, as are the anterior and middle cerebral arteries. There is mild stenosis of the supraclinoid left internal carotid artery. 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 This is reconstituted distally. There is high-grade stenosis of the left vertebral artery at the level of C1 seen on image #17. There is complete short segment thrombosis of the right vertebral artery at the skull base seen on image #39 with reconstitution. The right vertebral artery is also completely thrombosed below the basilar. The basilar artery is widely patent. The left vertebral artery is dominant. There is a left posterior communicating artery. No aneurysm is identified throughout the intracranial circulation. Dural sinuses: Clear as visualized. Orbits: The bony orbits are intact. The orbital contents are normal as visualized. Sinuses and mastoids: There is trace mucosal thickening within the maxillary antra and the right frontal sinus. The remaining paranasal sinuses are clear. The mastoid air cells are well pneumatized. Calvarium: Unremarkable. IMPRESSION: 1. There is no evidence of hemorrhage, mass effect, or acute territorial ischemia noting angiographic phase technique. 2. There are foci of complete thrombosis involving both vertebral arteries at t he skull base. The left vertebral artery reconstitutes and the basilar is patent. This is of indeterminate chronicity, and given the findings of chronic cerebellar infarcts may be chronic. Correlate clinically. 3. There is mild stenosis of the supraclinoid left internal carotid artery. 4. The intracranial vessels are otherwise patent. ACT 112: Negative or not required by law. Electronically signed by: Gavin Arriaza M.D. 03/22/2023 11:50 AM Neck CTA 03/22/23 08:32 NECK CTA HISTORY: stroke-like symptoms TECHNIQUE: Multiaxial CT images of the neck were performed following the intravenous administration of contrast to evaluate the major cervical vessels. 3D/MIP images were also obtained. Sagittal and coronal reformats were reviewed. All measurements were calculated based on NASCET criteria. A dose lowering technique was utilized adhering to the principles of ALARA. COMPARISON STUDY: None. FINDINGS: The aortic arch and proximal great vessels are widely patent. There is no significant stenosis, occlusion, or dissection identified within the bilateral common carotid or internal carotid arteries. Mild atherosclerotic plaque within the right carotid bifurcation. Slightly hypoplastic right vertebral artery demonstrating multifocal areas of moderate to severe stenosis. In addition, there is focal occlusion within the intracranial portion of the distal right vertebral artery best seen on image 337. Focal area of high-grade stenosis also seen within the intracranial portion of the distal left vertebral artery. The cervical portion of the left vertebral artery is patent. IMPRESSION: 1. No significant stenosis, occlusion, or dissection within the carotid arteries. 2. Slightly hypoplastic right vertebral artery demonstrating multifocal areas of moderate to severe stenosis. 3. In addition, there is focal occlusion within the intracranial portion of the distal right vertebral artery. 4. Focal area of high-grade stenosis also seen within the intracranial portion of the distal left vertebral artery. ACT 112: Negative or not required by law. Electronically signed by: Satish Ayala M.D. 03/22/2023 11:45 AM PG Care Time/CCT Total # of Minutes Spent Total Time Spent with Patient: Total time spent is greater than 50% in coordination of care (as documented) at patient's floor/unit and/or counseling patient: Coding Level of Care Code 39226 SUB INP/OBS CARE 2/35MIN Diagnoses Stroke-like symptoms R29.90 Weakness R53.1 Hypertensive urgency I16.0 PVD (peripheral vascular disease) I73.9 History of CVA (cerebrovascular accident) Z86.73 Lyme disease A69.20 RAZA (acute kidney injury) N17.9 DM2 (diabetes mellitus, type 2) E11.9
--- NOTE | 2023-03-22 09:49 | Neurology Consultation ---
Date of Consultation March 22, 2023 Assessment & Plan (1) Weakness: (2) Hypertensive urgency: History of Present Illness Attending Physician: Moe Knight MD History of Present Illness this morning is about the same and he has had his leg weakness for long time and it has been subjective. he was actually seen on our neurology clinic just few days ago for the same issue. neurology consulted for his report of chronic leg weakness that seems to be progressing. pt does have hx of chronic diabetic neuropathy and lyme disease and poor PVD and also he admits he does not walk much and very much deconditioned as he rarely walks at home. he also admitted for HTN urgency with SBP in 200s but this again has been ongoing for long time. pt CT head negative. can't get mri done as pt failed to lay still on his back and he does not want mri at this point. pt does report no focal acute leg weakness that is new from his baseline. admission HPI: Malcolm is a 62-year-old male with a past medical history of hypertensive urgency, peripheral vascular disease Patient last seen by PCP 01/2023. Was noted to have a blood pressure of 208/110 at that time and reported "this was normal for me ". Did discuss that this represented uncontrolled hypertension at that time, and had not had any improvement on losartan. 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 No unilateral symptoms. Extensive counseling was had at that time due to risk of ME, CVA, renal damage due to uncontrolled hypertension however patient insistent that his symptoms are due to tickborne illnesses and declined any additional testing or medications for blood pressure control at that visit. Also has peripheral vascular disease with recurrent decubitus ulcer requiring wound VAC treatment, again insistent that this was due to tickborne illness and not hypertension or diabetes and declined additional workup including arterial duplex studies and diabetes testing. Did agree to an A1c but was adamant he would not take any prescription medications. He did however obtain Plaquenil [id number] for the treatment of chronic Lyme/babesiosis which she feels was the cause of his symptoms. Patient followed up with neurology 03/17/2023 for uncontrolled BP greater than 220/120 refusing ER admission who was seen for numbness and tingling of his hands and feet for 2 years without improvement on gabapentin/Lyrica. Distant EMG consistent with diabetic neuropathy, last A1c was 6.3%. Patient was seen in the ER for weakness for several months. Has had p rogressively worsening symptoms and is afraid of tickborne illness. He has bilateral lower and upper extremity weakness. X-ray x-ray is without acute findings Creatinine is 1.5, last 1.4. Troponin 38.7 with no baseline. Viral panel pending. Lyme disease IgG/IgM - 03/17/2023 Family members have had bartonella, erlichiosis, Tried amoxicillin, augmentin, and doxycycline with no improvement in his strength in the hands and feet. Dropoff in strength in hands, feet 3 weeks ago, picked up by brother 3 months ago. Walks with a walker and had 'barely any strength left at all.' BP generally high BP 5.9% BSGs 100-103 Carvedilol and losartan cause his [place] clark leaves, brings his BP down to 235 from 280s. Cr slightly elevated at baseline 'slightly above normal'. Has had intermittent R chest pressure, none currently and declines pain Graft to poorly healing wound in left side posterior calf. This was done in [facility], also had a graft in [place] on his RIGHT side. heals poorly and feet tend to be very dry. Pt was using 720nm blue light to heal, found this to be the only helpful tx also has many disagreements with [facility] regarding this No fevers, but is cold 'all of the time. Never get warm.' Feels he does not sweat, is not wet but evaporates fluid quickly. Had a [facility] some R eye blurriness/weakness. Had had double vision for 3-4 days while in [place] and at home. No history of strokes. Hx L minor stroke. Was started on BP meds. Cannot take morphine. Currently taking losartan, took today. Previously on plaquenil for chronic lyme, did not help at all. Atovaquone Allergies Allergy/AdvReac Type Severity Reaction Status Date / Time Doxycycline Allergy Mild Urticaria Uncoded 03/21/23 20:23 Home Medications Medication Instructions Recorded Confirmed Type losartan 50 mg tablet 50 mg PO DAILY 03/03/23 03/21/23 History metronidazole 500 mg tablet 500 mg PO DAILY 03/03/23 03/21/23 History minocycline 100 mg capsule 200 mg PO DAILY 03/03/23 03/21/23 History ibuprofen 200 mg tablet 400 mg PO Q6H PRN Pain 03/21/23 03/21/23 History Patient History Medical History Vitamin B12 deficiency Elevated blood sugar Numbness and tingling of both lower extremities Numbness and tingling in both hands Abnormal ankle brachial index Nonhealing nonsurgical wound PVD (peripheral vascular disease) Hypertension H/o Lyme disease Social History Smoking Status: Never smoker Hx Alcohol Use: No Hx Substance Use: No Preferred Language: Latvian Communication Ability: Effective Visual Impairment: No Limitations Hearing Ability: Normal Paint Prepper Required: No Beliefs That Will Affect Care: None marital status: Unknown Current Living Situation: Family Current Living Situation Comment: living with brother and sister in law current occupational status: unemployed Other Information That Helps Us Care for You: No Feels Safe at Home: Yes Safety Concerns: Feels Safe At This Time caffeine: Yes during the past year weight has: remained stable Assistive Devices: Walker and Wheelchair Exam (Neuro) Physical Exam: HEENT: normocephalic Neuro: Mental: AOx4, fluent speech, normal comprehension, no apraxia, no neglect CN: PERRL, Full EOM, symmetric face, intact sensation t/o face, midline T/U/P Motor: No abnormal movements, 5/5 t/o bilaterally t/o including his legs. no obvious weakness in his legs. pt does report rt groin/hip pain. Sens: decrease to touch b/l distal legs Coord: intact FNT b/l DTR: 2+ sym b/l, toes down b/l Gait: deferred. Impression: 62 yo male with known b/l chronic subjective leg weakness in setting of diabetic neuropathy, PVD, chronic lyme. No focal weakness on exam. Overall picture is not consistent with stroke and it is likely multifactorial contributing factors for his subjective leg weakness, including chronic deconditioning, peripheral neuropathy, PVD with chronic wounds hindering his walking/activities. Recommendations: pt can't tolerate the MRI due to his back pain and unable to stay still. From neurology stand point, no need for MRI as I am not suspecting stroke for his s ymptoms. ok with getting carotid u/s or CTA to evaluate for his vessels. I do not feel he needs further stroke work up at this point. do continue to slowly tx his BP, do avoid sudden drop in his BP. need physical therapy for his [facility] rehab needs etc. he is already seen on our neurology clinic, he can f/u as planned as outpt. ok with continuing ASA supportive care for his wound and deconditioned state. please call again if new question. Chart reviewed I have spent more than 50% educating patient about potential diagnosis and neurological evaluation and coordinating care with patient's treatment team. Total time spent (including chart review and coordination of care): 60 min (this includes chart review). Results & Data Vital Signs (Past 12 Hours) Vital Signs Temp Pulse Pulse Resp BP BP Pulse Ox 03/22/23 09:30 193/92 H 03/22/23 09:30 68 17 03/22/23 09:15 200/108 H 03/22/23 09:15 67 22 96 03/22/23 09:00 63 14 95 03/22/23 09:00 199/100 H 03/22/23 08:45 175/90 H 03/22/23 08:45 68 24 93 03/22/23 08:32 209/102 H 03/22/23 08:32 71 26 H 92 03/22/23 08:30 117 H 24 03/22/23 08:15 179/97 H 03/22/23 08:15 68 20 93 03/22/23 08:05 69 20 197/107 H 97 03/22/23 08:04 63 22 98 03/22/23 08:04 197/107 H 03/22/23 08:02 69 20 176/100 H 97 03/22/23 08:00 176/100 H 03/22/23 08:00 67 27 H 96 03/22/23 07:58 03/22/23 07:55 207/113 H 03/22/23 07:55 68 26 H 96 03/22/23 07:50 204/111 H 03/22/23 07:50 75 29 H 94 03/22/23 07:30 227/155 H 03/22/23 07:30 78 30 H 03/22/23 07:00 58 L 20 03/22/23 07:00 177/101 H 03/22/23 06:00 57 L 21 183/96 H 96 03/22/23 05:30 60 20 183/98 H 95 03/22/23 05:00 185/104 H 96 03/22/23 04:30 54 L 176/90 H 94 03/22/23 04:00 158/87 H 95 03/22/23 03:30 50 L 15 135/75 90 03/22/23 03:00 49 L 142/79 H 90 03/22/23 02:43 67 17 177/96 H 99 03/22/23 02:30 51 L 16 154/84 H 90 03/22/23 02:25 58 L 18 156/89 H 98 03/22/23 02:00 58 L 17 143/81 H 90 03/22/23 01:43 53 L 16 161/91 H 97 03/22/23 01:30 58 L 20 163/88 H 95 03/22/23 01:27 36.8 C 58 L 22 133/77 96 03/22/23 01:00 60 12 133/77 90 03/22/23 00:43 64 22 152/89 H 96 03/21/23 23:56 61 15 160/88 H 03/21/23 23:31 192/119 H 03/21/23 23:17 64 03/21/23 23:00 63 21 176/92 H 95 Pulse Ox O2 Del Method O2 Del Method 03/22/23 09:30 03/22/23 09:30 03/22/23 09:15 03/22/23 09:15 03/22/23 09:00 03/22/23 09:00 03/22/23 08:45 03/22/23 08:45 03/22/23 08:32 03/22/23 08:32 03/22/23 08:30 03/22/23 08:15 03/22/23 08:15 03/22/23 08:05 Room Air 03/22/23 08:04 03/22/23 08:04 03/22/23 08:02 Room Air 03/22/23 08:00 03/22/23 08:00 03/22/23 07:58 97 Room Air 03/22/23 07:55 03/22/23 07:55 03/22/23 07:50 03/22/23 07:50 03/22/23 07:30 03/22/23 07:30 03/22/23 07:00 03/22/23 07:00 03/22/23 06:00 03/22/23 05:30 03/22/23 05:00 03/22/23 04:30 03/22/23 04:00 03/22/23 03:30 03/22/23 03:00 03/22/23 02:43 03/22/23 02:30 03/22/23 02:25 03/22/23 02:00 03/22/23 01:43 03/22/23 01:30 03/22/23 01:27 Room Air 03/22/23 01:00 03/22/23 00:43 03/21/23 23:56 03/21/23 23:31 03/21/23 23:17 03/21/23 23:00 PG Care Time/CCT Total # of Minutes Spent Total Time Spent with Patient: Total time spent is greater than 50% in coordination of care (as documented) at patient's floor/unit and/or counseling patient: Coding Level of Care Code 07725 IN/OBS CONSULT LVL 4,60M Diagnoses Weakness R53.1 Hypertensive urgency I16.0
[2023-03-22] MEDS: ASPIRIN 81 MG ECTAB PO SCH (10:14)
[2023-03-22] MEDS ORDERED: OPTIRAY 320 125ml IV ONE (11:28)
--- NOTE | 2023-03-22 11:46 | CT Scan Report ---
NECK CTA HISTORY: stroke-like symptoms TECHNIQUE: Multiaxial CT images of the neck were performed following the intravenous administration o f contrast to evaluate the major cervical vessels. 3D/MIP images were also obtained. Sagittal and cor onal reformats were reviewed. All measurements were calculated based on NASCET criteria. A dose low ering technique was utilized adhering to the principles of ALARA. COMPARISON STUDY: None. FINDINGS: The aortic arch and proximal great vessels are widely patent. There is no significant sten osis, occlusion, or dissection identified within the bilateral common carotid or internal carotid art eries. Mild atherosclerotic plaque within the right carotid bifurcation. Slightly hypoplastic right v ertebral artery demonstrating multifocal areas of moderate to severe stenosis. In addition, there is focal occlusion within the intracranial portion of the distal right vertebral artery best seen on duarte ge 337. Focal area of high-grade stenosis also seen within the intracranial portion of the distal lef t vertebral artery. The cervical portion of the left vertebral artery is patent. IMPRESSION: 1. No significant stenosis, occlusion, or dissection within the carotid arteries. 2. Slightly hypoplastic right vertebral artery demonstrating multifocal areas of moderate to severe s tenosis. 3. In addition, there is focal occlusion within the intracranial portion of the distal right vertebra l artery. 4. Focal area of high-grade stenosis also seen within the intracranial portion of the distal left wendy tebral artery. ACT 112: Negative or not required by law. Electronically signed by: Satish Ayala M.D. 03/22/2023 11:45 AM
--- NOTE | 2023-03-22 11:52 | CT Scan Report ---
CT ANGIOGRAM OF THE BRAIN CLINICAL HISTORY: Strokelike symptoms. COMPARISON STUDY: Unenhanced CT of the brain performed the same day 03/22/2023. TECHNIQUE: Following the IV administration of 117 cc of Optiray 320, CT angiogram of the brain was pe rformed from the skull base to the vertex. Images are reviewed in the axial, sagittal, and coronal pl anes. 3-D MIPS images are created and assessed. IV contrast was administered without complication. A dose lowering technique was utilized adhering to the principles of ALARA. CT DOSE: 594.53 mGy.cm FINDINGS: Brain parenchyma: There is age-related involutional change noting moderate subcortical and periventri cular microangiopathic disease. Small chronic infarcts are noted in the cerebellum. There is no evide nce of hemorrhage, mass effect, or f acute territorial ischemia noting angiographic phase technique. There is no evidence of enhancing mass lesion on the angiogram phase images. No extra-axial fluid col lection is seen. Blackman-white matter differentiation is preserved. Ventricles, sulci, and cisterns: Prominent secondary to positional change. Megacisterna magna is inci dentally noted. CT angiogram of the brain: There is atherosclerotic calcification of the cavernous carotid and verteb ral arteries. The internal carotid arteries are widely patent, as are the anterior and middle cerebra l arteries. There is mild stenosis of the supraclinoid left internal carotid artery. There is complet e focal thrombosis of the left vertebral artery at the skull base seen on image #48. This is reconsti tuted distally. There is high-grade stenosis of the left vertebral artery at the level of C1 seen on image #17. There is complete short segment thrombosis of the right vertebral artery at the skull base seen on image #39 with reconstitution. The right vertebral artery is also completely thrombosed belo w the basilar. The basilar artery is widely patent. The left vertebral artery is dominant. There is a left posterior communicating artery. No aneurysm is identified throughout the intracranial circulati on. Dural sinuses: Clear as visualized. Orbits: The bony orbits are intact. The orbital contents are normal as visualized. Sinuses and mastoids: There is trace mucosal thickening within the maxillary antra and the right fron bryant sinus. The remaining paranasal sinuses are clear. The mastoid air cells are well pneumatized. Calvarium: Unremarkable. IMPRESSION: 1. There is no evidence of hemorrhage, mass effect, or acute territorial ischemia noting angiographic phase technique. 2. There are foci of complete thrombosis involving both vertebral arteries at the skull base. The lef t vertebral artery reconstitutes and the basilar is patent. This is of indeterminate chronicity, and given the findings of chronic cerebellar infarcts may be chronic. Correlate clinically. 3. There is mild stenosis of the supraclinoid left internal carotid artery. 4. The intracranial vessels are otherwise patent. ACT 112: Negative or not required by law. Electronically signed by: Gavin Arriaza M.D. 03/22/2023 11:50 AM
--- NOTE | 2023-03-22 12:38 | XCELERA ---
[id number]
--- NOTE | 2023-03-22 15:48 | Ultrasound Report ---
US arterial duplex LE BI CLINICAL HISTORY: LE arterial insufficiency TECHNIQUE: Real-time grayscale and color and spectral Doppler ultrasound imaging of the bilateral low er extremity arteries was performed. Measurements calculated based on NASCET criteria. COMPARISON: None available at the time of this dictation. FINDINGS: Triphasic waveforms are seen throughout the right with the exception of biphasic waveforms in the pop liteal and peroneal arteries. Abnormal flow is seen in the left lower extremity as follows: Left popliteal artery: Triphasic flow, 20 cm/s. Left posterior tibial artery: Monophasic flow, 21 cm/s Left anterior tibial artery: Monophasic flow, 26 cm/s Left peroneal artery: No flow seen proximally, distally there is monophasic flow, 71 cm/s Dorsalis pedis artery: Monophasic flow, 14 cm/s. ANKLE/BRACHIAL INDEX (DERRICK): Brachial: Right: mmHg. Left: 213 mmHg. Ankle (dorsalis pedis): Right: 225 mmHg. Left: 151 mmHg. Ankle (posterior tibial): Right: 245 mmHg. Left: 167 mmHg. Ankle/brachial index: Left: 0.78. Reference ranges: Normal Ankle/Brachial Index (DERRICK) 1.0-1.4; 0.91-0.99 borderline; < or = 0.9 abnormal (0.7-0.89 mild, 0.51-0.69 moderate, < or = 0.5 severe peripheral arterial disease). Normal Toe/Brachial Index (TBI) > or = 0.6; < 0.6 abnormal (0.34-0.59 mild, 0.12-0.34 moderate, < or = 0.11 severe peripheral arterial disease). IMPRESSION: Hemodynamically significant stenosis in the left popliteal artery distally. Mildly diminished ankle b rachial index on the left. ACT 112: Negative or not required by law. Electronically signed by: Momo Valdez M.D. 03/22/2023 3:47 PM
[2023-03-22] MEDS: niCARdipine 25 MG in SODIUM CHLORIDE 0.9% 240 ML IV SCH ×2 (20:24→20:25)
[2023-03-22] MEDS: ATORVASTATIN 40 MG TAB PO SCH (20:24)
[2023-03-22] MEDS ORDERED: LABETALOL HCL IV 5 MG/ML 20ML IV STA (23:02)
[2023-03-23] MEDS ORDERED: hydrALAZINE HCL 20 MG/ML VIAL IV STA ×2 (00:38→07:49)
[2023-03-23] MEDS ORDERED: diphenhydrAMINE Capsule 25 MG CAP PO ONE (02:28)
--- NOTE | 2023-03-23 03:25 | Communication Note ---
Date of Service: March 23, 2023 Reviewed patient's chart sometime after initially being asked by nurse (Meir) to modify patient's Cardene drip parameters, at which point noticed BP of 2 26/105, constituting hypertensive emergency. Reviewed patient's chart, which showed that he was placed on permissive hypertension measures after initially presenting with strokelike symptoms. Reviewed neurology note, in which specialist did not find patient's symptoms consistent with stroke. Ordered IV labetalol 10 mg after reviewing vitals (HR-73), and speaking to patient's primary nurse (Cheri). Notified by that patient diagnosed with heart block so labetalol was nixed for hydralazine. Patient was hesitant to take as he was worried about an allergic reaction. Went to speak to the patient and stressed the importance of managing his severely elevated blood pressures, especially with respect to reducing the risk of vaso-occlusive stroke. Patient then agreed to take IV hydralazine 10 mg. BP subsequently improved to 184/90. Notified second time by nurse (Cheri), that patient had awoken from sleep with complaint of his feet being on fire and his left kidney hurting. Proceeded to bedside, where patient described feet as "being stuck in hot sand" and an itchy left kidney. Able to palpate distal pulses bilaterally, with adequate capillary refill. Left flank, save for excoriation kaplan, appeared normal on visual and tactile exam. Clarified symptoms with patient and ordered p.o. diphenhydramine 25 mg, which patient agreed to take. Resident Activity Tracking Resident Involvement: Resident Care Provided and Real Estate Associate Coverage Note Care Provided: Adult Hospital Medicine
[2023-03-23 07:39] LABS: Basophils # (auto) 0.05 K/uL (0.00-0.20); Basophils % (auto) 0.8 %; Eosinophils # (auto) 0.21 K/uL (0.00-0.50); Eosinophils % (auto) 3.5 %; Hematocrit (blood only) 41.2 % (42.0-52.0); Hemoglobin 14.1 g/dl (14.0-18.0); Immature Granulocytes # (auto) 0.01 K/uL (0.01-0.20); Immature Granulocytes % (auto) 0.2 %; Lymphocytes # (auto) 1.42 K/uL (1.20-3.40); Lymphocytes % (auto) 23.9 %; Mean Corpuscular Hemoglobin 29.1 pg (25.0-34.0); Mean Corpuscular Hgb Conc 34.2 g/dL (32.0-36.0); Mean Corpuscular Volume 84.9 fL (80.0-100.0); Mean Platelet Volume 11.1 fL (9.4-12.4); Monocytes # (auto) 0.78 K/uL (0.11-0.59); Monocytes % (auto) 13.1 %; Neutrophils # (auto) 3.47 K/uL (1.40-6.50); Neutrophils % (auto) 58.5 %; Platelet Count 144 K/uL (130-400); RDW Coefficient of Variation 14.5 % (11.5-14.5); RDW Standard Deviation 44.4 fL (36.4-46.3); Red Blood Count 4.85 M/uL (4.70-6.10); White Blood Count 5.94 K/ul (4.8-10.8)
[2023-03-23 07:49] LABS: BUN Creatinine Ratio 14.8 (10-20); Creatinine Clr Calc Pharmacy 70.6 ml/min; Est GFR (African American) 56.7 ml/min; Est GFR (Non-African American) 48.9 ml/min; Potassium 3.6 mmol/L (3.5-5.1)
[2023-03-23] MEDS: ATORVASTATIN 40 MG TAB PO SCH (08:46)
[2023-03-23] MEDS: ASPIRIN 81 MG ECTAB PO SCH (08:46)
[2023-03-23] MEDS: HEPARIN SOD 5,000 UNIT/0.5 ML VIAL SQ SCH ×2 (08:47→17:36)
[2023-03-23] MEDS ORDERED: CLOPIDOGREL BISULFATE 75 MG TAB PO SCH (09:00)
--- NOTE | 2023-03-23 10:21 | CT Scan Report ---
CT SCAN OF THE BRAIN WITHOUT IV CONTRAST CLINICAL HISTORY: Strokelike symptoms. COMPARISON STUDY: CT of the brain dated 03/22/2023. TECHNIQUE: Unenhanced axial CT scan of the brain is performed from the vertex to the skull base. A do se lowering technique was utilized adhering to the principles of ALARA. CT DOSE: 688.24 mGy.cm FINDINGS: Brain parenchyma: There is age-related involutional change noting [id number] subcortical and pe riventricular microangiopathic disease. There is no hemorrhage, mass effect, or evidence of acute ter ritorial ischemia by CT criteria. There are chronic bilateral cerebellar infarcts. Blackman-white matter differentiation is preserved. No extra-axial fluid collection is seen. Ventricles, sulci, cisterns: Prominent secondary to involutional change. Megacisterna magna is incide ntally noted. Intracranial vasculature: There is atherosclerotic calcification of the cavernous carotid and vertebr al arteries. Calvarium: Unremarkable. Sinuses and mastoids: The visualized paranasal sinuses are clear. The mastoid air cells are well pneu matized. Orbits: The bony orbits are grossly intact. IMPRESSION: There is no hemorrhage, mass effect, or evidence of acute territorial ischemia by CT sheela billings. ACT 112: Negative or not required by law. Electronically signed by: Gavin Arriaza M.D. 03/23/2023 10:20 AM
--- NOTE | 2023-03-23 14:45 | Hospitalist Progress Note ---
Date of Service March 23, 2023 Assessment & Plan (1) Stroke-like symptoms: Plan: Secondary to cerebral hypoperfusion when blood pressure was in the 130/70 range which was "too low" for him. Symptoms resolved Neurology on board, recommended strict blood pressure control between 180-220 for 24- [address] today was negative Continue aspirin, Lipitor PT and OT consulted Echocardiogram showed severe concentric LVH Maintain blood pressure and call on IV Cardene today Will start p.o. Norvasc tomorrow (2) Weakness: Plan: Bilateral lower extremity weakness ? CVA versus lumbar Chronic weakness of the lower extremities which is bilaterally worse morning of 03/21/2023. Has been chronically declining for several weeks. Patient versus chronic right hip pain which limits his hip flexion and ambulation. Does feel his right leg has been more weak than the left since waking up this morning No bowel/bladder incontinence, no saddle anesthesia. Has neuropathy of the lower extremities bilaterally without asymmetry and which has not changed Endorses some recent difficulty with balance -Patient with lacunar old strokes and age-indeterminate cerebellar stroke on CT. No MCA or large territory stroke. PT/OT on board. (3) Hypertensive urgency: Plan: Hypertensive urgency complicated by hypertensive heart disease and nephropathy With evidence of lacunar strokes on CTs, and renal dysfunction and severe concentric LVH Patient has a history of Lyme disease and has first-degree heart block and bradycardia. Beta-blockers and centrally acting calcium channel blockers contraindicated Patient reports that he has had no blood pressure improvement in the past on carvedilol, metoprolol, losartan, lisinopril He is currently on IV Cardene drip Will start him on p.o. amlodipine tomorrow Patient is most likely used to having a blood pressure in the 200s range. Would not aggressively treat his blood pressure at this time. (4) PVD (peripheral vascular disease): Plan: With poor wound healing and bilateral grafts as depicted in PE Left popliteal artery stenosis noted distally on D[facility] Patient will need to follow-up with vascular surgery outpatient (5) History of CVA (cerebrovascular accident): Plan: With lacunar strokes likely due to uncontrolled hypertension, age- indeterminate cerebellar stroke with evaluation pending as above. A spirin/statin/hypertensive management as noted (6) Lyme disease: Plan: Patient reports he has had history of multiple tick bites and chronic Lyme disease. Has been on multiple antibiotics including amoxicillin doxycycline and atovaquone. Recent Lyme testing was negative. Patient reports he had improvement with his symptoms with antibiotics previously, but not recently. Does have history of first-degree heart block which remains present No additional treatment for Lyme indicated at this time. Did discuss that ongoing antibiotics for "chronic Lyme "was not with evidence-based support, although Lyme disease may cause chronic sequelae and some patients this does not represent ongoing infection. Patient agreeable to treatment as above and deferring antibiotics at this time (7) RAZA (acute kidney injury): Plan: Unclear baseline. This is most likely hypertensive nephropathy leading to CKD. His creatinine has been ranging between 1.4 to 1.5 (8) DM2 (diabetes mellitus, type 2): Plan: His A1c was 6.5 today. Continue sliding scale insulin Plan DVT prophylaxis: Heparin due to RAZA CODE STATUS: Full code Diet: heart healthy/DM2 Admission and Anticipated Discharge Date Admission Date: March 21, 2023 Subjective Reviewed communication report from overnight. Patient had elevated blood pressures for which he was given a dose of IV hydralazine. Soon after the IV hydralazine, he was complaining of itchiness and burning sensation in his feet. This morning, he continued to have elevated blood pressure readings and thus the decision was made to transfer him to the ICU. He will be on IV Cardene drip to maintain systolic blood pressure between 180-220. Patient is now in the ICU. Having IV Cardene drip turned on and off depending on blood pressure readings. On questioning, he stated that he has bilateral leg pain that gets worse with exertion and get better with rest. At this time, he does not have any new complaints. He is not the best historian. Review of Systems Review of Systems: All systems reviewed & are unremarkable except as noted in Subjective Physical Exam Physical Exam: General: Awake, conversant. Heart: S1, S2/regular rate and rhythm, no murmur rubs or gallops Lungs: Clear to auscultation bilaterally. Normal effort Abdomen: Soft/nontender/nondistended. No hepatosplenomegaly Extremities: No clubbing/cyanosis. No edema Behavior: Appropriate, cooperative Results & Data Results & Data Vital Signs (Past 12 Hours) Vital Signs Temp Pulse Pulse Resp BP BP Pulse Ox 03/23/23 14:00 68 23 206/109 H 97 03/23/23 13:45 67 23 219/115 H 99 03/23/23 13:23 62 26 H 200/117 H 97 03/23/23 13:01 71 31 H 214/109 H 96 03/23/23 13:00 75 19 221/125 H 97 03/23/23 12:54 74 22 202/96 H 97 03/23/23 11:45 78 18 220/131 H 93 03/23/23 11:31 88 21 201/117 H 98 03/23/23 11:16 78 27 H 213/122 H 97 03/23/23 11:11 73 17 213/122 H 98 03/23/23 11:02 78 21 197/119 H 94 03/23/23 07:48 36.3 C L 79 18 208/119 H 96 03/23/23 06:30 219/109 H O2 Del Method 03/23/23 14:00 Room Air 03/23/23 13:45 Room Air 03/23/23 13:23 Room Air 03/23/23 13:01 Room Air 03/23/23 13:00 Room Air 03/23/23 12:54 Room Air 03/23/23 11:45 Room Air 03/23/23 11:31 Room Air 03/23/23 11:16 Room Air 03/23/23 11:11 Room Air 03/23/23 11:02 Room Air 03/23/23 07:48 Room Air 03/23/23 06:30 Laboratory Results Abnormal lab results 03/22/23 03/23/23 03/23/23 Range/Units 22:03 06:57 07:17 Hct 41.2 L (42.0-52.0) % [place] # (Auto) 0.78 H (0.11-0.59) K/uL Creatinine 1.49 H (0.6-1.4) mg/dl Glucose 121 H (70-99(Fasting)) mg/dl POC Glucose 175 H 134 H (70-99) mg/dl PG Care Time/CCT Total # of Minutes Spent Total Time Spent with Patient: Total time spent is greater than 50% in coordination of care (as documented) at patient's floor/unit and/or counseling patient: Coding Level of Care Code 85924 SUB INP/OBS CARE 2/35MIN Diagnoses Stroke-like symptoms R29.90 Weakness R53.1 Hypertensive urgency I16.0 PVD (peripheral vascular disease) I73.9 History of CVA (cerebrovascular accident) Z86.73 Lyme disease A69.20 RAZA (acute kidney injury) N17.9 DM2 (diabetes mellitus, type 2) E11.9
[2023-03-23] MEDS: niCARdipine 25 MG in SODIUM CHLORIDE 0.9% 240 ML IV SCH ×2 (15:35→22:44)
[2023-03-23 16:18] LABS: Appearance Urine Clear (Clear); Bacteria Urine Automated Negative (Negative); Bilirubin Urine Negative (Negative); Blood Urine Negative (Negative); Cast Urine Automated 0 /lpf (0-5); Color Urine Yellow; Epithelial Cell Urine Auto 0-5 /lpf (0-5); Glucose Urine UA Negative (Negative); Ketones Urine Negative (Negative); Leukocyte Esterase Urine Negative (Negative); Nitrite Urine Negative (Negative); RBC Urine Automated 0-4 /hpf (0-4); Specific Gravity Urine 1.015 (1.000-1.030); Urobilinogen Urine Negative (Negative); pH Urine 7.5 (4.5-7.5)
[2023-03-23 16:23] LABS: Protein Urine 2+ (Negative)
[2023-03-24] MEDS: HEPARIN SOD 5,000 UNIT/0.5 ML VIAL SQ SCH ×3 (01:48→17:57)
[2023-03-24 05:03] LABS: Basophils # (auto) 0.05 K/uL (0.00-0.20); Basophils % (auto) 0.8 %; Eosinophils # (auto) 0.25 K/uL (0.00-0.50); Eosinophils % (auto) 4.2 %; Hematocrit (blood only) 43.5 % (42.0-52.0); Hemoglobin 14.5 g/dl (14.0-18.0); Immature Granulocytes # (auto) 0.01 K/uL (0.01-0.20); Immature Granulocytes % (auto) 0.2 %; Lymphocytes % (auto) 21.8 %; Mean Corpuscular Hemoglobin 29.1 pg (25.0-34.0); Mean Corpuscular Hgb Conc 33.3 g/dL (32.0-36.0); Mean Corpuscular Volume 87.2 fL (80.0-100.0); Mean Platelet Volume 10.9 fL (9.4-12.4); Monocytes # (auto) 0.82 K/uL (0.11-0.59); Monocytes % (auto) 13.8 %; Neutrophils # (auto) 3.53 K/uL (1.40-6.50); Neutrophils % (auto) 59.2 %; Platelet Count 147 K/uL (130-400); RDW Coefficient of Variation 14.3 % (11.5-14.5); RDW Standard Deviation 45.7 fL (36.4-46.3); Red Blood Count 4.99 M/uL (4.70-6.10); White Blood Count 5.96 K/ul (4.8-10.8)
[2023-03-24 05:19] LABS: BUN Creatinine Ratio 15.7 (10-20); Calcium 8.8 mg/dl (8.6-10.3); Creatinine Clr Calc Pharmacy 66.1 ml/min; Est GFR (African American) 52.4 ml/min; Est GFR (Non-African American) 45.2 ml/min; Potassium 3.8 mmol/L (3.5-5.1)
[2023-03-24] MEDS: niCARdipine 25 MG in SODIUM CHLORIDE 0.9% 240 ML IV SCH ×4 (07:00→17:26)
[2023-03-24] MEDS ORDERED: amLODIPine BESYLATE 5 MG TAB PO SCH (09:00)
[2023-03-24] MEDS ORDERED: amLODIPine BESYLATE 5 MG TAB PO ONE (10:28)
[2023-03-24] MEDS: ATORVASTATIN 40 MG TAB PO SCH (11:04)
[2023-03-24] MEDS: ASPIRIN 81 MG ECTAB PO SCH (11:04)
--- NOTE | 2023-03-24 15:16 | Hospitalist Progress Note ---
Date of Service March 24, 2023 Assessment & Plan (1) Stroke-like symptoms: Plan: Secondary to cerebral hypoperfusion when blood pressure was in the 130/70 range which was "too low" for him. Symptoms resolved Neurology on board, recommended strict blood pressure control between 180-220 for 24- [address] 03/23 was negative Continue aspirin, Lipitor PT and OT recommended discharge to home eventually Echocardiogram showed severe concentric LVH Started p.o. Norvasc 10 mg today Continue IV Cardene as needed May add more blood pressure medications tomorrow (2) Weakness: Plan: Bilateral lower extremity weakness ? CVA versus lumbar Chronic weakness of the lower extremities which is bilaterally worse morning of 03/21/2023. Has been chronically declining for several weeks. Patient versus chronic right hip pain which limits his hip flexion and ambulation. Does feel his right leg has been more weak than the left since waking up this morning No bowel/bladder incontinence, no saddle anesthesia. Has neuropathy of the lower extremities bilaterally without asymmetry and which has not changed Endorses some recent difficulty with balance -Patient with lacunar old strokes and age-indeterminate cerebellar stroke on CT. No MCA or large territory stroke. PT/OT cleared him for discharge to home (3) Hypertensive urgency: Plan: Hypertensive urgency complicated by hypertensive heart disease and nephropathy With evidence of lacunar strokes on CTs, and renal dysfunction and severe concentric LVH Patient has a history of Lyme disease and has first-degree heart block and bradycardia. Beta-blockers and centrally acting calcium channel blockers contraindicated Patient reports that he has had no blood pressure improvement in the past on carvedilol, metoprolol, losartan, lisinopril He was on a Cardene drip. Started him on p.o. amlodipine. Will try to take him off of the drip. May add another blood pressure medicine tomorrow. (4) PVD (peripheral vascular disease): Plan: With poor wound healing and bilateral grafts as depicted in PE Left popliteal artery stenosis noted distally on [facility] Patient will need to follow-up with vascular surgery outpatient (5) History of CVA (cerebrovascular accident): Plan: With lacunar strokes likely due to uncontrolled hypertension, age- indeterminate cerebellar stroke with evaluation pending as above. Aspirin/statin/hypertensive management as noted (6) Lyme disease: Plan: Patient reports he has had history of multiple tick bites and chronic Lyme disease. Has been on multiple antibiotics including amoxicillin doxycycline and atovaquone. Recent Lyme testing was negative. Patient reports he had improvement with his symptoms with antibiotics previously, but not recently. Does have history of first-degree heart block which remains present No additional treatment for Lyme indicated at this time. Did discuss that ongoing antibiotics for "chronic Lyme "was not with evidence-based support, although Lyme disease may cause chronic sequelae and some patients this does not represent ongoing infection. Patient agreeable to treatment as above and deferring antibiotics at this time (7) RAZA (acute kidney injury): Plan: Unclear baseline. This is most likely hypertensive nephropathy leading to CKD. His creatinine has been ranging between 1.4 to 1.6 (8) DM2 (diabetes mellitus, type 2): Plan: His A1c was 6.5 today. Continue sliding scale insulin Plan DVT prophylaxis: Heparin due to RAZA CODE STATUS: Full code Diet: heart healthy/DM2 Admission and Anticipated Discharge Date Admission Date: March 21, 2023 Subjective Patient denies chest pain or shortness of breath. He continues to complain of weakness of his legs. His blood pressure has been in the 180s to 200s range. At 4 AM, his blood pressure did drop to 168/89. He did not have any symptoms of cerebral hypoperfusion following that reading. He got amlodipine 10 mg this morning. He is stable for transfer out of the ICU. Review of Systems Review of Systems: All systems reviewed & are unremarkable except as noted in Subjective Physical Exam Physical Exam: General: Awake, conversant. Heart: S1, S2/regular rate and rhythm, no murmur rubs or gallops Lungs: Clear to auscultation bilaterally. Normal effort Abdomen: Soft/nontender/nondistended. No hepatosplenomegaly Extremities: No clubbing/cyanosis. No edema Behavior: Appropriate, cooperative Results & Data Results & Data Vital Signs (Past 12 Hours) Vital Signs Temp Pulse Resp BP Pulse Ox O2 Del Method 03/24/23 09:30 69 29 H 206/99 H 95 Room Air 03/24/23 09:00 67 23 200/111 H 98 Room Air 03/24/23 08:30 71 19 197/125 H 96 Room Air 03/24/23 08:00 67 18 193/106 H 95 03/24/23 07:30 70 19 95 Room Air 03/24/23 07:30 193/101 H 03/24/23 07:05 36.5 C 03/24/23 07:02 72 18 214/181 H 98 Room Air 03/24/23 06:30 58 L 20 179/89 H 03/24/23 06:00 175/105 H 03/24/23 06:00 55 L 17 98 03/24/23 05:30 180/99 H 03/24/23 05:30 59 L 23 93 03/24/23 05:01 59 L 21 98 03/24/23 05:01 200/89 H 03/24/23 05:00 65 24 94 03/24/23 04:31 53 L 14 94 03/24/23 04:31 209/96 H 03/24/23 04:00 168/89 H 03/24/23 04:00 53 L 12 03/24/23 03:30 181/97 H 03/24/23 03:30 53 L 15 Laboratory Results Abnormal lab results 03/23/23 03/24/23 Range/Units 16:00 04:38 [place] # (Auto) 0.82 H (0.11-0.59) K/uL BUN 25 H (6-23) mg/dl Creatinine 1.59 H (0.6-1.4) mg/dl Glucose 133 H (70-99(Fasting)) mg/dl Urine Protein 2+ H (Negative) PG Care Time/CCT Total # of Minutes Spent Total Time Spent with Patient: Total time spent is greater than 50% in coordination of care (as documented) at patient's floor/unit and/or counseling patient: Coding Level of Care Code 77801 SUB INP/OBS CARE 2/35MIN Diagnoses Stroke-like symptoms R29.90 Weakness R53.1 Hypertensive urgency I16.0 PVD (peripheral vascular disease) I73.9 History of CVA (cerebrovascular accident) Z86.73 Lyme disease A69.20 RAZA (acute kidney injury) N17.9 DM2 (diabetes mellitus, type 2) E11.9
[2023-03-25] MEDS: HEPARIN SOD 5,000 UNIT/0.5 ML VIAL SQ SCH ×2 (01:05→10:56)
[2023-03-25] MEDS ORDERED: amLODIPine BESYLATE 5 MG TAB PO SCH (09:00)
[2023-03-25] MEDS ORDERED: SPIRONOLACTONE 25 MG TAB PO SCH (09:00)
[2023-03-25] MEDS ORDERED: POLYETHYLENE (MIRALAX) 17 GM PACK PO PRN (09:03)
[2023-03-25] MEDS: ASPIRIN 81 MG ECTAB PO SCH (09:59)
[2023-03-25 10:25] LABS: BUN Creatinine Ratio 15.3 (10-20); Calcium 9.2 mg/dl (8.6-10.3); Creatinine Clr Calc Pharmacy 62.9 ml/min; Est GFR (African American) 50.8 ml/min; Est GFR (Non-African American) 43.9 ml/min; Potassium 3.7 mmol/L (3.5-5.1)
[2023-03-25] MEDS: ATORVASTATIN 40 MG TAB PO SCH (10:56)
--- NOTE | 2023-03-25 11:48 | Discharge Summary ---
Date of Service March 25, 2023 Admission HPI Per Admitting Provider Malcolm is a 62-year-old male with a past medical history of hypertensive urgency, peripheral vascular disease Patient last seen by PCP 01/2023. Was noted to have a blood pressure of 208/110 at that time and reported "this was normal for me ". Did discuss that this represented uncontrolled hypertension at that time, and had not had any improvement on losartan. 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 No unilateral symptoms. Extensive counseling was had at that time due to risk of NH, CVA, renal damage due to uncontrolled hypertension however patient insistent that his symptoms are due to tickborne illnesses and declined any additional testing or medications for blood pressure control at that visit. Also has peripheral vascular disease with recurrent decubitus ulcer requiring wound VAC treatment, again insistent that this was due to tickborne illness and not hypertension or diabetes and declined additional workup including arterial d uplex studies and diabetes testing. Did agree to an A1c but was adamant he would not take any prescription medications. He did however obtain Plaquenil [id number] for the treatment of chronic Lyme/babesiosis which she feels was the cause of his symptoms. Patient followed up with neurology 03/17/2023 for uncontrolled BP greater than 220/120 refusing ER admission who was seen for numbness and tingling of his hands and feet for 2 years without improvement on gabapentin/Lyrica. Distant EMG consistent with diabetic neuropathy, last A1c was 6.3%. Patient was seen in the ER for weakness for several months. Has had progressively worsening symptoms and is afraid of tickborne illness. He has bilateral lower and upper extremity weakness. X-ray x-ray is without acute findings Creatinine is 1.5, last 1.4. Troponin 38.7 with no baseline. Viral panel pending. Lyme disease IgG/IgM - 03/17/2023 Family members have had bartonella, erlichiosis, Tried amoxicillin, augmentin, and doxycycline with no improvement in his strength in the hands and feet. Dropoff in strength in hands, feet 3 weeks ago, picked up by brother 3 months ago. Walks with a walker and had 'barely any strength left at all.' BP generally high BP 5.9% BSGs 100-103 Carvedilol and losartan cause his [place] clark leaves, brings his BP down to 235 from 280s. Cr slightly elevated at baseline 'slightly above normal'. Has had intermittent R chest pressure, none currently and declines pain Graft to poorly healing wound in left side posterior calf. This was done in [facility], also had a graft in [place] on his RIGHT side. heals poorly and feet tend to be very dry. Pt was using 720nm blue light to heal, found this to be the only helpful tx also has many disagreements with [facility] regarding this No fevers, but is cold 'all of the time. Never get warm.' Feels he does not sweat, is not wet but evaporates fluid quickly. Had a [facility] some R eye blurriness/weakness. Had had double vision for 3-4 days while in [place] and at home. No history of strokes. Hx L minor stroke. Was started on BP meds. Cannot take morphine. Currently taking losartan, took today. Previously on plaquenil for chronic lyme, did not help at all. Atovaquone Medical History: Reviewed Medications: Reviewed Surgical History: Reviewed Family history: Reviewed Allergies: Reviewed Social History: No tobacco or ETOH Code Status: Full Code Admission Exam Per Admitting Provider General: A&Ox3. NAD. Cooperative. HEENT: Atraumatic, normocephalic. Vision/hearing intact. No visual field cuts. Pupils equal and reactive to light Pulm: CTAB A&P. -wheezes, -rales, -rhonchi. Symmetrical chest rise. No increased work of breathing. No respiratory distress. Cardiac: Regular, bradycardic, -mrg. Radial pulses intact and symmetrical. Abdominal: Nontender, nondistended, soft. BS present. Left hip flexion, ankle dorsiflexion/plantarflexion 5/5. Sensation soft touch is intact. No ankle clonus. Right lower extremity: Limited by discomfort at the hip, activates musculature but will not flex at the hip. Ankle dorsiflexion/plantarflexion 4/5. Sensation symmetrical with left. 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 Heart: S1, S2/regular rate and rhythm, no murmur rubs or gallops Lungs: Clear to auscultation bilaterally. Normal effort Abdomen: Soft/nontender/nondistended. No hepatosplenomegaly Extremities: No clubbing/cyanosis. No edema Behavior: Appropriate, cooperative Discharge Data Allergies Allergy/AdvReac Type Severity Reaction Status Date / Time doxycycline Allergy Mild URTICARIA Verified 03/22/23 23:10 Consultations 03/21/23 18:12 ED Decision to Admit Stat 03/22/23 08:36 Consult Neurology Routine Ordered Studies 03/21/23 17:30 CT head/brain wo con Stat 03/21/23 18:41 US duplex renal artery Urgent 03/21/23 19:27 US carotid doppler BI Routine 03/22/23 07:[address] [CT head/brain wo con] Stat 03/22/23 08:32 CTA head w con [CT angio head w con] Stat CTA neck with con [CT angio neck with con] Stat 03/22/23 18:40 US arterial duplex LE BI Routine 03/23/23 07:[address] [CT head/brain wo con] Routine Hospital Course (1) Stroke-like symptoms: Secondary to cerebral hypoperfusion when blood pressure was in the 130/70 range which was "too low" for him. Symptoms resolved Neurology on board, recommended strict blood pressure control between 180-220 for 24- [address] 03/23 was negative Continue aspirin, Lipitor PT and OT recommended discharge to home eventually Echocardiogram showed severe concentric LVH Patient was initially treated with IV Cardene drip to maintain good blood pressure control within the goal range He was then started on Norvasc and amlodipine. Patient started refusing medications because of "side effects of burning of the soles of his feet" from these medications. (2) Weakness: Bilateral lower extremity weakness ? CVA versus lumbar Chronic weakness of the lower extremities which is bilaterally worse morning of 03/21/2023. Has been chronically declining for several weeks. Patient versus chronic right hip pain which limits his hip flexion and ambulation. Does feel his right leg has been more weak than the left since waking up this morning No bowel/bladder incontinence, no saddle anesthesia. Has neuropathy of the lower extremities bilaterally without asymmetry and which has not changed Endorses some recent difficulty with balance -Patient with lacunar old strokes and age-indeterminate cerebellar stroke on CT. No MCA or large territory stroke. PT/OT cleared him for discharge to home Continue outpatient workup and management (3) Hypertensive urgency: Hypertensive urgency complicated by hypertensive heart disease and nephropathy With evidence of lacunar strokes on CTs, and renal dysfunction and severe concentric LVH Patient has a history of Lyme disease and has first-degree heart block and bradycardia. Beta-blockers and centrally acting calcium channel blockers contraindicated Patient reports that he has had no blood pressure improvement in the past on carvedilol, metoprolol, losartan, lisinopril He was on a Cardene drip. But when he was switched to p.o. medications, he started complaining of "side effects". Refused all oral blood pressure medications Noted that his blood pressure at the outpatient visit in January 2023 was 220s/110s. He probably lives with a blood pressure that high. Moreover, in the past few days he has been argumentative about blood pressure medications and has been refusing the medications we were trying to give him. Since he has not been taking the medications as prescribed, he is being discharged today The long-term consequences of having elevated blood pressure has been explained and emphasized. He was told that he already has chronic kidney disease, heart disease, brain disease related to longstanding hypertension. he has been advised to follow-up with his PCP in 1 week He will not take the amlodipine and thus it was not prescribed. He says that he has not taken spironolactone in the past and will try it and thus the prescription has been given. (4) PVD (peripheral vascular disease): With poor wound healing and bilateral grafts as depicted in PE Left popliteal artery stenosis noted distally on DERRICK Patient will need to follow-up with vascular surgery outpatient (5) History of CVA (cerebrovascular accident): With lacunar strokes likely due to uncontrolled hypertension, age- indeterminate cerebellar stroke with evaluation pending as above. Aspirin/statin/hypertensive management as noted (6) Lyme disease: Patient reports he has had history of multiple tick bites and chronic Lyme disease. Has been on multiple antibiotics including amoxicillin doxycycline and atovaquone. Recent Lyme testing was negative. Patient reports he had improvement with his symptoms with antibiotics previously, but not recently. Does have history of first-degree heart block which remains present No additional treatment for Lyme indicated at this time. Did discuss that ongoing antibiotics for "chronic Lyme "was not with evidence-based support, although Lyme disease may cause chronic sequelae and some patients this does not represent ongoing infection. Patient agreeable to treatment as above and deferring antibiotics at this time (7) RAZA (acute kidney injury): Unclear baseline. This is most likely hypertensive nephropathy leading to CKD. 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 You are at risk of a bleeding stroke with blood pressure reading that high. Advised that you speak to your PCP and follow your doctor's advice. Pending Studies at Discharge: No Stand-Alone Forms: My [facility] Medications and DC Order Prescriptions: New spironolactone 25 mg Tablet 25 mg PO QAM 30 Days Qty: 30 0RF aspirin 81 mg Tablet,Delayed Release (Dr/Ec) 81 mg PO DAILY 30 Days Qty: 30 0RF Continued losartan 50 mg tablet 50 mg PO DAILY Discontinued metronidazole 500 mg tablet 500 mg PO DAILY minocycline 100 mg capsule 200 mg PO DAILY ibuprofen 200 mg Tablet 400 mg PO Q6H PRN (Reason: Pain) Discharge Orders: Discharge Order (Routine); Ordered 03/25/23 Ordered By: Moe Knight Admission Data Admit Date/Time: 03/21/23 19:58 Attending Provider: Moe Knight Admit Provider: Gulshan De Jesus Primary Care Provider: Janessa Nick Other Providers: Gulshan De Jesus; Quan,Cody Other Interventions: Discharge Summary Assessment (RN) Last Done: 03/25/23 13:52 Coding Level of Care Code 22670 INP/OBS DISCH >30 MIN Diagnoses Stroke-like symptoms R29.90 Weakness R53.1 Hypertensive urgency I16.0 PVD (peripheral vascular disease) I73.9 History of CVA (cerebrovascular accident) Z86.73 Lyme disease A69.20 RAZA (acute kidney injury) N17.9 DM2 (diabetes mellitus, type 2) E11.9
== END 2023-03-25 17:01 | disposition home or self-care (01) | DRG 71 ==
LOC: ED 14:54 → SUATTDRO 19:58 → EDINP 19:58 → 2S 21:03 → 1E 03-23 09:08 → 2S 03-24 17:34

== ENCOUNTER 2023-09-12 09:20 | Inpatient (IN) ==
--- OUTSIDE RECORDS SUMMARY | 2023-09-12 09:26 | External Medical Summary | Summary of Care ---
Author Name Unknown Organization [facility] Address [address] [place] [address] Phone [phone] Care Team Providers Care Health Care Marketing Specialist Name Role Phone Marcellus Mickie Primary Care Provider [phone] Reason for Visit * Reason Comments Follow Up achillis wounds bila randy, Encounter Details Date Type Department Care Team (Late st Contact Info) Description 08/18/2023 9:40 AM EDT Office Visit Wound Care, [facility] [address] [place] [address] Nancie Zhou, CRISTELA [address] [place] [address] Open wound of knee, leg, and ankle, unspecified laterality, initial encounter*; PVD (peripheral vascular disease) ([facility]) Allergies No known active allergiesdocumented as of this encounter (statuses as of 08/18/2023) Medications Medication Sig Dispensed Refills Start Date End Date Status Losartan Potassium 50 MG Oral Tablet (Cozaar) Take 1 Tablet by mouth in the morning. Active Nystatin 607589 UNIT Oral Tablet Take by mouth. Active Tinidazole 500 MG Oral Tablet (Tindamax) Take by mouth. Act obi documented as of this encounter (statuses as of 08/18/2023) Active Problems Problem Noted Date Diagnosed Date Type 2 diabetes mellitus wit h diabetic mononeuropathy, without long-term current use of insulin 08/03/2023 HTN, goal below 130/80 08/03/2023 Wound of lower extremity 08/03/2023 documented as of this encounter (statuses as of 08/18/2023) Social History Tobacco Use Types Packs/Day Years Used Date Smoking Tobacco: Never Smokeless Tobacco: Never Alcohol Use Standard Drinks/Week Comments Not Currently 0 (1 standard drink = 0.6 oz pur e alcohol) Sex and Gender Information Value Date Recorded Sex Assigned at Not on file Gender Identity Not on file Sexual Orientation Not on file Job Start Date Occupation Industry Not on file Not on file Not on file documented as of this encounter Progress Notes * Nancie Zhou, CRISTELA - 08/18/2023 9:34 AM EDT Images from the original note were not included. [facility] [place] WOUND OUTPATIENT FOLLOW-UP NOTE HPI: Malcolm Irizarry is being seen today for follow-up of sid lower leg wounds. Dressing to the let was dry however the right with noted serous drainage. He is not using the previously discussed wound care dressings instead had been using a 6% bleach solution. He did complete his ABIs which show m oderate PVD on the right. Current dressing: See Wound Assessment Dressing change frequency: every day RLE Compression: LLE Compression: RLE Wt Bearing Offloading: LLE Wt Bearing Offloading: RLE Non-Wt Bearing Offloading: LLE Non-Wt Bearing Offloading: Offloading Surface for Bed: Offloading Surface for Chair / Wheelchair: ROS: ROS was negative other than stated above. Tobacco History: Social History Tobacco Use Smoking Status Never Smokeless Tobacco Never WOUND ASSESSMENT: Alteration in Skin Integrity Right;Posterior Ankle (Active) Clinical Image 08/18/23 09 Wound Length (cm) 5.5 cm 08/18/23 09 Wound Width (cm) 4.3 cm 08/18/23 09 Wound Depth (cm) 0.2 cm 08/18/23 09 Yellow Fibrinous Slough (%) 1-25% 08/18/23 09 Granulation Tissue (%) 51-75% 08/18/23904 Granulation Tissue Color pale/pink 08/18/23 09 Necrotic Tissue (%) none 08/18/23 09 Drainage serosanguinous, heavy 08/18/23 09 Odor (after cleansing wound) No 08/18/23 09 Nablia-Wound (Surrounding Skin) -- (Scar) 08/18/23904 Wound Surface Area (cm^2) 23.65 cm^2 08/18/23 0905 Wound Volume (cm^3) 4.73 cm^3 08/18/23 09 Alteration in Skin Integrity Distal;Left Calf Achilles (Active) Clinical Image 08/18/23907 Wound Length (cm) 1.8 cm 08/18/23907 Wound Width (cm) 0.5 cm 08/18/23 09 Wound Depth (cm) 0.3 cm 08/18/23 09 Yellow Fibrinous Slough (%) 1-25% 08/18/23 09 Granulation Tissue (%) 51-75% 08/18/23907 Granulation Tissue Color pale/pink 08/18/23 09 Necrotic Tissue (%) none 08/18/23 09 Drainage none 08/18/23 09 Odor (after cleansing wound) No 08/18/23907 Nabila-Wound (Surrounding Skin) -- (Scar) 08/18/23907 Wound Surface Area (cm^2) 0.9 cm^2 08/18/23 0908 Wound Volume (cm^3) 0.27 cm^3 08/18/23 09 ASSESSMENT/PLAN: (S81.009A, S81.809A, S91.009A) Open wound of knee, leg, and ankle, unspecified laterality, initial encounter (primary encounter diagnosis) (I73.9) PVD (peripheral vascular disease) (HCC) - Pt seen and evaluated - ABIs with moderate PVD (RIGHT) - This was reviewed with pt - Today there is increased swelling to the right lower leg - Will start with compression to sid lower legs - He will be back on Wednesday for dressing changes. No orders found. Follow-up: Wednesday Nancie Zhou DPM 08/18/2023 9:34 AM documented in this encounter Nursing Notes * Shirley Kimbrough LPN - 08/18/2023 9:03 AM EDT Patient was placed in chair advised not to rise on their owe pre their safety B/L achillis wounds bilaterally, Dressing removed and wound washed with soap and water, towel dried. Dressing - Left was dry. Dressing- heavy serosanguineous on the right . Photos and measurements taken, will alert provider ready for care Treatment per provider post exam documented in this encounter Plan of Treatment Upcoming Encounters Date Type Department Care Team (Late st Contact Info) Description 08/20/2023 8:00 AM EDT Office Visit Wound Care, [facility] [address] [place] [address] Nancie Zhou DPM [address], [place] [id number] Health Maintenance Due Date Last Done Comments GFR 1958 Lipid Panel 1958 HbA1c 1964 Pneumococcal Vaccine: 65+ Ye ars (1 of 2 - PCV) 1964 Depression Screening 1970 HIV Screening 1973 Albumin/Creatinine Ratio 1976 Diabetic Eye Exam 1976 Diabetic Foot Exam 1976 Hepatitis C Screening 1976 DTaP,Tdap,and Td Vaccines (1 - Tdap) 1977 Cologuard 2003 Colonoscopy 2003 Colorectal Cancer Screening 2003 Fecal Occult Blood Test 2003 Sigmoidoscopy 2003 Zoster Vaccines (1 of 2) 2008 COVID-19 Vaccine (2 - 2022-2 4 season) 2023 01/24/2023 Influenza Vaccine (FLU shot) Completed 02/09/2023 GARDASIL-HPV IMMUNIZATION SERIES Aged Out No longer eligible based on patient's age to complete this topic Hepatitis B Aged Out No longer eligi ble based on patient's age to complete this topic MENINGOCOCCAL (MENACTRA/MENVEO) Aged Out No longer eligible based on patient's age to complete this topic documented as of this encounter Medical Devices Not on filedocumented as of this encounter Visit Diagnoses Diagnosis Open wound of knee, leg, and ankle, unspecified laterality, initial encounter- Primary PVD (peripheral vascular disease) (HCC) Peripheral vascular disease, unspecified documented in this encounter Care Teams Health Care Marketing Specialist Relationship Specialty Start Date End Date Mickie Germain DO [address] [facility] [address] [place] [address] PCP - General Family Medicine 07/21/23 documented as of this encounter
--- OUTSIDE RECORDS SUMMARY | 2023-09-12 09:26 | External Medical Summary | Continuity of Care Document ---
Author Name Unknown Organization [address] [place], [place] [id number] Care Team Providers Care Cuff Presser Name Role Phone Kamilah Rock Primary Care Physician [phone] [facility]counter [facility] [id number] Date(s): 08/30/23 - 08/30/[address] [address] [phone] Discharge Disposition: Home or Self Care Attending Physician: ADA Germain Danielle B Allergies, Adverse Reactions, Alerts Substance Criticality Severity Reaction Reaction Severity Status doxycycline Urticaria Active Immunizations Given and Recorded Vaccine Date Status Refusal Reason influenza virus vaccine, inactivated 02/09/23 Give n Medications anelica dried root Start: 08/23/23 8:53:00 AM EDT, anelica dried root, 0.7 mL Start Date: 08/23/23 Status: Ordered minoxidil 2.5 mg oral tablet Start: 08/23/23 8:51:00 AM EDT, 1 tab, PO, Daily Start Date: 08/23/23 Status: Ordered One Touch Delica Plus (33G) Lancets Start: 05/01/23 7:00:00 PM EST, See Instructions, Disp# 100 each, Refills: 3, check blood glucose 1xper day for concerns of hypo or hyperglycemia, Note to Pharmacy: E11.65; e11.59; e11.40, Pharmacy: [id number] Start Date: 05/01/23 Status: Ordered One Touch Delica Plus (33G) Lancets Start: 04/30/23 11:41:00 AM EST, See Instructions, Disp# 100 each, Refills: 3, check blood glucose 1x per day and as needed for concerns of hypo or hyperglycemia, Note to Pharmacy: E11.65; e11.59; e11.40, Pharmacy: [id number] Start Date: 04/30/23 Status: Ordered One Touch Verio Flex Glucose Monitor Start: 04/30/23 11:41:00 AM EST, See Instructions, Disp# 1 each, Test once daily, Note to Pharmacy: Dispense as written; Dx: e11.40; E11.59, Pharmacy: [id number] Start Date: 04/30/23 Status: Ordered One Touch Verio Test Strips Start: 05/01/23 7:00:00 PM EST, See Instructions, Disp# 50 each, Refills: 3, check blood glucose once daily for concerns of hypo or hyperglycemia, Note to Pharmacy: E11.65; E11.59; E11.40, Pharmacy: [id number] Start Date: 05/01/23 Status: Ordered One Touch Verio Test Strips Start: 04/30/23 11:41:00 AM EST, See Instructions, Disp# 50 each, Refills: 3, check blood glucose 3xper day and as needed for concerns of hypo or hyperglycemia, Note to Pharmacy: E11.65; E11.59; E11.40, Pharmacy: [id number] Start Date: 04/30/23 Status: Ordered Mental Status 08/30/23 Barriers to Learning one year None evide nt Mandatory Health Literacy Documentation Yes Health Literacy Communication Barriers N ever Primary Language Czech Problem List Condition Confirmation Course Effective Dates Status H ealth Status Informant Diabetes Confirmed Active History of Lyme disease Confirmed Active History of spinal fusion Confirmed Active HTN, goal below 130/80 Confirmed Active Diabetic neuropathy Confirmed Active Osteoarthritis of right hip Confirmed Active PVD (peripheral vascular disease) Confirmed Active Varicose vein of leg Confirmed Active Vital Signs Most recent to oldest [Reference Range]: 1 Heart Rate 71 bpm (08/30/23 1:13 PM) Respiratory Rate 17 br/min (08/30/23 1:13 PM) Blood Pressure 180/110mmHg (08/30/23 1:13 PM) Social History Social History Type Response Smoking Status Never smoked cigaret carlos Sex Male Patient Care team information Care Team Personnel Name: CRISTELA Rock Christina L Position: Physician - Podiatry Member Role: Primary Care Provider Address: Address: [address] [place] [address] Care Team Related Persons Name: SOLITARIO RHOADES Address: [place] Address: home [address] [facility] [facility] [place] [phone]
--- OUTSIDE RECORDS SUMMARY | 2023-09-12 09:26 | External Medical Summary | Continuity of Care Document ---
Author Name Unknown Organization [facility] [address] [id number] Address [address] [place] [phone] Care Team Providers Care Unionmelt Operator Name Role Phone Kamilah Rock Primary Care Physician [phone] Encounter [facility] [id number] Date(s): 08/31/23 - 08/31/[address] [facility] [address] [facility] [address] [facility] [address] [address] Encounter Diagnosis Diabetes(Discharge Diagnosis) - 08/31/23 Diabetic neuropathy(Discharge Diagnosis) - 08/31/23 PVD (peripheral vascular disease)(Discharge Diagnosis) - 08/31/23 Discharge Disposition: Home or Self Care Attending Physician: CRISTELA Rock Christina L Referring Physician: CRISTELA Rock Christina L Allergies, Adverse Reactions, Alerts Substance Criticality Severity Reaction Reaction Severity Status doxycycline Urticaria Active Assessment and Plan Extracted from: Title:Follow Up Visit Author:CRISTELA Rock, Azalea Ragsdale Date:08/31/23 1.Diabetes Discussed with patient that I feel his wounds are likely secondary to an arterial etiologyand I do feel he should complete the recommendations from vascular medicine,unfortunately it is very difficult to get him to focus onwhat isimportant and what needs to be properly addressedI do feel that his venous insufficiency and arterial insufficiency are likely partof theissue with him nothaving healing wounds unfortunately was very difficult to get him to understand this his brother who is present at the visit was more understandingI provided a referral to vascular medicinefor patient to follow-up and have CTA which was recommended. He should continue to see the wound clinic which she sees in [place]. Patient noted to me may be returning to [facility] can follow-up with me on an as-needed basis. I spent 5 minute planning including prepping note and chart review. I spent 9 minute [id number] interaction with patient addressing issuesdiscussed in visit today. I spent 5 minute time in postop visitplanning including note finishing in depart process. Total time spent on patient visit 19 minutes. 2.Diabetic neuropathy 3.PVD (peripheral vascular disease) Immunizations Given and Recorded Vaccine Date Status [...] Note to Pharmacy: E11.65; e11.59; e11.40, Pharmacy: [facility] Start Date: 05/01/23 Status: Ordered One Touch Delica Plus (33G) Lancets Start: 04/30/23 11:41:00 AM EST, See Instructions, Disp# 100 each, Refills: 3, check blood glucose 1x per day and as needed for concerns of hypo or hyperglycemia, Note to Pharmacy: E11.65; e11.59; e11.40, Pharmacy: [facility] Start Date: 04/30/23 Status: Ordered One Touch Verio Flex Glucose Monitor Start: 04/30/23 11:41:00 AM EST, See Instructions, Disp# 1 each, Test once daily, Note to Pharmacy: Dispense as written; Dx: e11.40; E11.59, Pharmacy: [facility] Start Date: 04/30/23 Status: Ordered One Touch Verio Test Strips Start: 05/01/23 7:00:00 PM EST, See Instructions, Disp# 50 each, Refills: 3, check blood glucose once daily for concerns of hypo or hyperglycemia, Note to Pharmacy: E11.65; E11.59; E11.40, Pharmacy: [facility] Start Date: 05/01/23 Status: Ordered One Touch Verio Test Strips Start: 04/30/23 11:41:00 AM EST, See Instructions, Disp# 50 each, Refills: 3, check blood glucose 3xper day and as needed for concerns of hypo or hyperglycemia, Note to Pharmacy: E11.65; E11.59; E11.40, Pharmacy: [facility] Start Date: 04/30/23 Status: Ordered Mental Status 08/31/23 Barriers to Learning one year None evide nt Mandatory Health Literacy Documentation Yes Health Literacy Communication Barriers N ever Primary Language Macedonian Problem List Condition Confirmation Course Effective Dates Status H ealth Status Informant Diabetes Confirmed Active History of Lyme disease Confirmed Active History of spinal fusion Confirmed Active HTN, goal below 130/80 Confirmed Active Diabetic neuropathy Confirmed Active Osteoarthritis of right hip Confirmed Active PVD (peripheral vascular disease) Confirmed Active Varicose vein of leg Confirmed Active Diagnosis Diagnosis Type Effective Dates Health Status Clinical Service Informant Diabetes Discharge Diagnosis 08/31/23 Non-Specified Diabetic neuropathy Discharge Diagnosis 08/31/23 Non-Specified PVD (peripheral vascular disease) Discharge Diagnosis 08/31/23 Non-Specified Social History Social History Type Response Smoking Status Never smoked cigaret carlos Sex Male Ortho Outpt Note * CRISTELA Rock, Kamilah Ragsdale: PERFORM Event Display: Ortho Outpt Note Authored Date: Chief Complaint dm ulcer follow-up Primary Care Provider None, NoneFirst Subjective Patient is a very pleasant 63-year-old male last seen February 24, 2023. History of spinal fusionsurgeryand diabetes with arterial insufficiency. -Patientat this point is continuing to talk in circlescontinuing to state to me that he has a tickborne illness that is causing his neuropathyI do note that he has been seen by the wound care center dating back to at leastAprilhe had a neurology visitat the beginning of the monthfor his chronic leg with weaknessuncontrolled hypertensionhe had an EMG that showed sensorimotor polyneuropathybut again is convinced as his Lyme's diseasepatientfrom a perspective of the wounds which is potentially what he is returning to see me forI did send him to the wound clinic I note that he was last seenin June of this yearand they are not healed yet he also saw infectious diseasehe will not put a dressing on the left leg wound which is at the Achilles tendonboth the right and leftwounds arestable without infectionhe does have peripheral vascular diseasehe [facility] in March of this yeara CTA which she was to have ordered patient did not complete thisas he does have monophasic flow below the knee. Review of Systems Chest pain irregular heartbeat poor circulation kidney stones extremity numbness decreased vision shortness breath arthritissinus problems dry skin and skin sores thyroid problems diabetes Objective Physical Exam Problem focused bilateral feet: Dorsalis pedis pulse nonpalpable, posterior tibial pulse nonpalpable, capillary refill time less than 3 seconds, skin turgorappears normal to distal extremities, however I appreciate significant coolness in the left lower extremitypedal hair is absent there is what appears to be hemosiderin deposits in the setting of venous insufficiency and some mild lower extremity swelling. Patient was referred to vascular medicine and was to have a CTA which he was never and had never completed Neurovascular status is notably diminished he was unable to feel the monofilament on the right sidebut to a small degree he could feel various areas on the left footI feel that light touch is significantly diminished and proprioception is diminished secondarily to either diabetes and a spinal fusion surgeries. Sees neurology last seen this month He has bilateralleg wounds at the Achilles tendon on both the left and right lower extremityhe refuses to place dressings on the leftwoundhe will place a small dressing on the right wound he has seenwound clinic and I referred him there he also notes that he is seeing the wound clinic in [place] Images 2023-08-31 10:25:56 2023-08-31 10:26:19 Assessment/Plan 1.Diabetes Discussed with patient that I feel his wounds are likely secondary to an arterial etiologyand I do feel he should complete the recommendations from vascular medicine,unfortunately it is very difficult to get him to focus onwhat isimportant and what needs to be properly addressedI do feel that his venous insufficiency and arterial insufficiency are likely partof theissue with him nothaving healing wounds unfortunately was very difficult to get him to understand this his brotherwho is present at the visit was more understandingI provided a referral to vascular medicineforpatient to follow- up and have CTA which was recommended. He should continue to see the wound clinic which she sees in [place]. [place] an [place]-needed basis. I spent 5 minute planning including prepping note and chart review. I spent 9 minute [id number] interaction with patient addressing issuesdiscussed in visit today. I spent 5minute time in postop visitplanning including note finishing in depart process. Total time spent on patient visit 19 minutes. 2.Diabetic neuropathy 3.PVD (peripheral vascular disease) Electronic Signature on File Electronically Reviewed/Signed by: Kamilah Rock DPM Author Signature Dt/Tm:08/31/2023 10:40 AM Division of Sports Medicine CLR Patient Care team information Care Team Personnel Name: CRISTELA Rock, Kamilah Ragsdale Position: Physician - Podiatry Member Role: Primary Care Provider Address: Address: [address] [address] Care Team Related Persons Name: SOLITARIO RHOADES Address: [facility] Address: home [address] [place], [place] [id number]
--- OUTSIDE RECORDS SUMMARY | 2023-09-12 09:26 | External Medical Summary | Summary of Care ---
Author Name Unknown Organization [facility] Address [address] [place] [address] Phone [phone] Care Team Providers Care Sole Buffer Name Role Phone MarcellusMickie Primary Care Provider [phone] Reason for Visit * Reason Comments Wound Care Bilateral Achilles w ounds Encounter Details Date Type Department Care Team (Late st Contact Info) Description 08/20/2023 8:00 AM EDT Nurse Only Wound Care, [facility] [address] [place] [address] [facility], Nurse Wound Care [address] [place] [address] Wound Care (Bilateral Achilles wounds ) Allergies No known active allergiesdocumented as of this encounter (statuses as of 08/20/2023) Medications Medication Sig Dispensed Refills Start Date End Date Status Losartan Potassium 50 MG Oral Tablet (Cozaar) Take 1 Tablet by mouth in the morning. Active Nystatin 247196 UNIT Oral Tablet Take by mouth. Active Tinidazole 500 MG Oral Tablet (Tindamax) Take by mouth. Act obi documented as of this encounter (statuses as of 08/20/2023) Active Problems Problem Noted Date Diagnosed Date Type 2 diabetes mellitus wit h diabetic mononeuropathy, without long-term current use of insulin 08/03/2023 HTN, goal below 130/80 08/03/2023 Wound of lower extremity 08/03/2023 documented as of this encounter (statuses as of 08/20/2023) Social History Tobacco Use Types Packs/Day Years [...] on file documented as of this encounter Nursing Notes * Maria Guadalupe Burnett LPN - 08/20/2023 8:51 AM EDT Malcolm was unable to tolerate Coban 2 lite wraps and had self-removed a portion at home. He was then called and instructed to remove all of wrap and return today for dressing change. Assisted Malcolm to safely transfer from / to sit safely on Exam seating. Malcolm is aware to notrise unassisted for his safety. Brother is by his side. No dressing to LLE - WOUND.- Exudate therefore unknown at this time. Wound bed was moist. RLE -wound with taped portion of gauze pad over wound. RLE with noted moderate amount of serosanguinous drainage on dressing removed. BLE wounds washed with soap and water. Towel dried tolerated well. Malcolm continues to state he has been using 6% Clorox solution to wounds , he has cleansed with this as well as spraying on pad and taping to RLE wound only. He also stated he has used other products in the past too. I asked if he would please , try this treatment for one week , and not any other products used on the wounds or around the wounds. This will give a better picture of what may have the best out comes for his care. I stated washing with soap and water is best , but if he feels the need the Clorox solution to wash only, not left on the skin or sprayed onto the Puracol Plus pad or the gauze pad. I then demonstrated how to cleans wound and apply the dressing and Tubi Retrimmer. This date wounds were treated with the Puracol Plus pad followed by DSD then conform with attempteddouble layer Tubi Plant Tender sz F. Malcolm could not tolerate the double layer to the LLE so went to single layer. He will return in one week for nurse visit. He is aware to call with any questions or concerns. documented in this encounter Plan of Treatment Upcoming Encounters Date Type Department Care Team (Late st Contact Info) Description 08/26/2023 9:00 AM EDT Nurse Only Wound Care, [facility] [address] [address] [facility], Nurse Wound Care [address] [place] [address] Health Maintenance Due Date Last Done Comments [...] Not on filedocumented as of this encounter Care Teams Sole Buffer Relationship Specialty Start Date End Date Mickie Germain DO [address] [place] [address] PCP - General Family Medicine 07/21/23 documented as of this encounter
--- OUTSIDE RECORDS SUMMARY | 2023-09-12 09:26 | External Medical Summary ---
Author Name Unknown Address Unknown Organization K0G[facility] [address] [place] [address] Laboratory Report Ordering Provider Test Date Status RAI KRUSE 09/04/2023 07:05:45 Final Observation Date Value Abnormality Reference (Units ) Status BUN 09/04/2023 07:05:45 27 Above high normal 6-20 (mg/dL) Final Creatinine 09/04/2023 07:05:45 1.6 Above high normal 0.6-1.2 (mg/dL) Final Glomerular filtration rate/1.73 sq M.predicted [Volume Rate/Area] in Serum, Plasma or Blood by Creatinine-based formula (CKD-EPI) 09/04/2023 07:05:45 49 Below low normal >=60 (mL/min) Final eGFR is calculated based on the CKD-EPI 2020 equation Sodium 09/04/2023 07:05:45 143 135-146 (m mol/L) Final Potassium 09/04/2023 07:05:45 4.0 3.5-5.1 (m mol/L) Final Cl 09/04/2023 07:05:45 105 98-107 (mm ol/L) Final CO2 09/04/2023 07:05:45 28 22-32 (mmo l/L) Final Anion gap 09/04/2023 07:05:45 10 7-15 (mmol /L) Final Glucose 09/04/2023 07:05:45 140 Above high normal 70 -120 (mg/dL) Final Calcium 09/04/2023 07:05:45 9.0 8.4-10.2 ( mg/dL) Final Performing Location [facility] [address] [place] [address]
--- OUTSIDE RECORDS SUMMARY | 2023-09-12 09:26 | External Medical Summary | Continuity of Care Document ---
Author Name Unknown Organization [address] [place] [phone] Care Team Providers Care Benefits Specialist Name Role Phone Kamilah Rock Primary Care Physician [phone] [facility] [id number] Date(s): 09/01/23 - 09/01/23 [facility] [address] [facility] 207 [facility] 1850 [facility], [facility] [address] [place] [address] [phone] Discharge Disposition: Home or Self Care Attending Physician: JOYCE Nick, Janessa Campbell Allergies, Adverse Reactions, Alerts Substance Criticality Severity [...] Note to Pharmacy: E11.65; e11.59; e11.40, Pharmacy: [facility] Start Date: 05/01/23 Status: [...] Note to Pharmacy: E11.65; E11.59; E11.40, Pharmacy: [facility] Start Date: 05/01/23 Status: Ordered One Touch Verio Test Strips Start: 04/30/23 11:41:00 AM EST, See Instructions, Disp# 50 each, Refills: 3, check blood glucose 3xper day and as needed for concerns of hypo or hyperglycemia, Note to Pharmacy: E11.65; E11.59; E11.40, Pharmacy: [facility] Start Date: 04/30/23 Status: Ordered Mental Status 09/01/23 Barriers to Learning one year None evide nt Mandatory Health Literacy Documentation Yes Health Literacy Communication Barriers N ever Primary Language Yakut Problem List Condition Confirmation Course Effective Dates [...] to oldest [Reference Range]: 1 Heart Rate 69 bpm (09/01/23 12:50 PM) Respiratory Rate 18 br/min (09/01/23 12:50 PM) Blood Pressure 210/100mmHg (09/01/23 12:50 PM) Cuff Pulse Pressure 110 mmHg (09/01/23 12:50 PM) Social History Social History Type Response Smoking Status Never smoked cigaret carlos Sex Male Patient Care team information Care Team Personnel Name: CRISTELA Rock Christina L Position: Physician - Podiatry Member Role: Primary Care Provider Address: Address: [address] Care Team Related Persons Name: JULIANNAWILBERTJEANE SOLITARIO JAYLON Address: [place] Address: home [address] [facility] [place] [phone]
--- OUTSIDE RECORDS SUMMARY | 2023-09-12 09:26 | External Medical Summary | Continuity of Care Document ---
Author Name Unknown Organization [facility] [address] [id number] Address [address] [place] [id number] Care Team Providers Care Emergency Management Consultant Name Role Phone Kamilah Rock Primary Care Physician [phone] [id number] Date(s): 08/30/23 - 08/30/23 [facility] [address] [facility] [address] Medicine [address] [address] Encounter Diagnosis Osteoarthritis of right hip(Discharge Diagnosis) - 08/30/23 Discharge Disposition: Home or Self Care Attending Physician: MD Gianni, [place] A Allergies, Adverse Reactions, Alerts Substance Criticality Severity Reaction Reaction Severity Status doxycycline Urticaria Active Assessment and Plan Extracted from: Title:Orthopaedics Office Visit Note Author:Donna seals MD, [place] A Date:08/30/23 1.Osteoarthritis of right hip See below IMPRESSION: 1)right hip OA 2)left knee painpossibly secondary tomild degenerative changes versus lumbar etiology. 3)bilateral lower extremity numbness,likely multifactorialwhich may includediabetes,progression of lumbar diseasewithprevious lumbar spinal fusion Chronic Goals: Decrease numbness, decreased pain PLAN: RICE. Short course of anti-inflammatories, alternating with Tylenol as needed for pain. Discussedgetting established with a PCP in [place], andhaving referrals for Ortho spine, Ortho joints, possiblyseeing neurology& wound care. Follow-up as needed. The patient understood all my instructions and explanation; all their questions were satisfactorily addressed. This chart was completed utilizing Aimet[employer] voice recognition software. Grammatical errors, random word insertions, pronoun errors, and incomplete sentences are an occasional consequence of the system. Any questions or concerns about the content, text, or information contained within the body of this dictation should be addressed directly to the author for clarification. Immunizations Given and Recorded Vaccine Date Status [...] Note to Pharmacy: E11.65; e11.59; e11.40, Pharmacy: [id number] Start Date: 05/01/23 Status: Ordered One Touch Delica Plus (33G) Lancets Start: 04/30/23 11:41:00 AM EST, See Instructions, Disp# 100 each, Refills: 3, check blood glucose 1x per day and as needed for concerns of hypo or hyperglycemia, Note to Pharmacy: E11.65; e11.59; e11.40, Pharmacy: [id number] Start Date: 04/30/23 Status: Ordered One Touch Verio Flex Glucose Monitor Start: 04/30/23 11:41:00 AM EST, See Instructions, Disp# 1 each, Test once daily, Note to Pharmacy: Dispense as written; Dx: e11.40; E11.59, Pharmacy: [facility] Start Date: 04/30/23 Status: Ordered One Touch Verio Test Strips Start: 05/01/23 7:00:00 PM EST, See Instructions, Disp# 50 each, Refills: 3, check blood glucose once daily for concerns of hypo or hyperglycemia, Note to Pharmacy: E11.65; E11.59; E11.40, Pharmacy: [facility] Start Date: 05/01/23 Status: Ordered One Touch Verio Test Strips Start: 04/30/23 11:41:00 AM EST, See Instructions, Disp# 50 each, Refills: 3, check blood glucose 3xper day and as needed for concerns of hypo or hyperglycemia, Note to Pharmacy: E11.65; E11.59; E11.40, Pharmacy: [id number] Start Date: 04/30/23 Status: Ordered Mental Status 08/30/23 Barriers to Learning one year None evide nt Mandatory Health Literacy Documentation Yes Health Literacy Communication Barriers N ever Primary Language [place] Problem List Condition Confirmation Course Effective Dates [...] Effective Dates Health Status Clinical Service Informant Osteoarthritis of right hip Discharge Diagnosis 08/30/23 Social History Social History Type Response Smoking Status Never smoked cigaret carlos Sex Male Ortho Outpt Note * MD Gianni, [place] A: PERFORM Event Display: Ortho Outpt Note Authored Date: [id number] Primary Care Provider None, NoneFirst Chief Complaint R hip and L knee pain History of Present Illness Malcolm is a pleasant 63-year-old male,who presents with multiple complaints todaywithleft knee pain with going downstairs, right hip pain, and his most bothersome isnumbness in bilateral feet. The numbness began in the left lower extremity over a year ago andbegan on the right sideinthe fall 2022. He notes that he had been taking antibiotics(amoxicillin)which helped resolve his symptoms initially. A second coursedid nothing. He notes that he is also been followed by wound care for nonhealing [place] had [place] spinal fusion 30 to 35 years ago in [facility]. He has not been ambulating for close to a year. [facility]. He currently rates his pain a8/10. Review of Systems 14 point review of systems is noted in the shared EMR. Physical Exam Focusing on the patient's bilateral lower extremity: 1+ DP pulse Sensation to light touch is diminished Motor to the gastroc soleus, tibialis anterior, and EHL is 5/5. Able to perform straight leg raise. - Joint line tenderness. - Maria Teresa's Left knee ligamentous examination exhibits: Stable Cade 0 mm anterior translation and firm endpoint Posterior drawer stable Varus stress at 5 and 30 stable Valgus stress at 5 and 30 stable - Effusion Range of motion 5-120. - Tenderness to palpation - logroll hip Hip range of motion Forward flexion 105 ; Abduction 30 ; Adductions 5 ; ER 10 ; IR 0 . - NASRA - FADIR +tenderness to palpationgroin Lumbar spine: - tenderness to palpation - step-offs Diagnostic Results I reviewed theradiographs of the left knee and right hipin the [employer] system performed08/23/2023. Left knee radiographs includedAP and lateral of theleft knee which show no acutefracture or dislocation. The righthipradiographs include AP pelvis, AP bilateral hipsand attemptedlateral of the right hip, which show severe degenerative changes of the right hip [id number], sclerosis, subchondral cysts. Incidental finding oflumbar spinalinstrumentationand left hip OA, moderate. Assessment/Plan 1.Osteoarthritis of right hip See below IMPRESSION: 1)right hip OA 2)left knee painpossibly secondary tomild degenerative changes versus lumbar etiology. 3)bilateral lower extremity numbness,likely multifactorialwhich may includediabetes,progression of lumbar diseasewithprevious lumbar spinal fusion Chronic Goals: Decrease numbness, decreased pain PLAN: RICE. Short course of anti-inflammatories, alternating with Tylenol as needed for pain. Discussedgetting established with a PCP in [place], andhaving referrals for Ortho spine,Ortho joints, possiblyseeing neurology& wound care. Follow-up as needed. The patient understood all my instructions and explanation; all their questions were satisfactorilyaddressed. This chart was completed utilizing Aimet[employer] voice recognition software. Grammatical errors, random word insertions, pronoun errors, and incomplete sentences are an occasional consequence of the system. Any questions or concerns about the content, text, or information contained within thebody of this dictation should be addressed directly to the author for clarification. Problem List/Past Medical History Ongoing Diabetes Diabetic neuropathy History of Lyme disease History of spinal fusion HTN, goal below 130/80 Osteoarthritis of right hip PVD (peripheral vascular disease) Varicose vein of leg Medications diabetes supplies(One Touch Verio Test Strips), See Instructions, 3 refills diabetes supplies(One Touch Delica Plus (33G) Lancets), See Instructions, 3 refills diabetes supplies(One Touch Verio Flex Glucose Monitor), See Instructions diabetes supplies(One Touch Verio Test Strips), See Instructions, 3 refills diabetes supplies(One Touch Delica Plus (33G) Lancets), See Instructions, 3 refills DULoxetine(DULoxetine 30 mg oral delayed release capsule), 30 mg= 1 cap, PO, Daily minoxidil(minoxidil 2.5 mg oral tablet), 2.5 mg= 1 tab, PO, Daily nystatin topical(nystatin 100,000 units/g topical cream), See Instructions, 1 refills unknown medication(anelica dried root), 0.7 mL Allergies doxycyclineUrticaria Social History Smoking Status Never smoked cigarettes Immunizations Vaccine Date Status influenza virus vaccine, inactivated 02/09/2023 Given Recommendations Health Maintenance Pending(in the next year) Due Adult COVID-19 Vaccination due08/30/23Unknown Frequency Adult Social Determinants of Health Screening due08/30/23Unknown Frequency Adult Tdap/Td Vaccine due08/30/23Unknown Frequency Body Mass Index due08/30/23Unknown Frequency Colorectal Cancer Screening due08/30/23Unknown Frequency Diabetes Nephropathy Management due08/30/23Unknown Frequency Diabetic Eye Exam due08/30/23Unknown Frequency Hepatitis C Screening due08/30/23One-time only Pneumococcal Vaccine Older Adults due08/30/23One-time only Shingles Vaccine due08/30/23One-time only Due In Future Adult Influenza Vaccine not due until09/12/23and every 1year Diabetes Management A1c not due until04/30/24and every Satisfied(in the past 1 year) Satisfied Adult Influenza Vaccine on02/09/23.Satisfied by PK Wu Donna Diabetes Management A1c on04/30/23.Satisfied by Contributor_system, [email or web address] Lipid Screening on04/30/23.Satisfied by Contributor_system, [email or web address] Electronic Signature on File Electronically Reviewed/Signed by: [place] Archer MD Author Signature Dt/Tm:08/30/2023 02:54 PM [facility] Anesthesiologist Attending Department of Orthopaedics and Rehabilitation [facility] [address], [place] [address] DAB Patient Care team information Care Team Personnel Name: CRISTELA oRck, Kamilah Ragsdale Position: Physician - Podiatry Member Role: Primary Care Provider Address: Address: [address] [facility] [address] [place] [address] Care Team Related Persons Name: SOLITARIO RHOADESER Address: [place] Address: home [address], [place] [id number]
--- OUTSIDE RECORDS SUMMARY | 2023-09-12 09:26 | External Medical Summary | Continuity of Care Document ---
Author Name Unknown Organization [address] [address] [place] [phone] Care Team Providers Care Crown Ironer Name Role Phone None, NoneFirst Primary Care Physician Unavailab le [facility]counter [facility] [id number] Date(s): 08/23/23 - 08/23/23 [facility] [address] [place] [phone] Encounter Diagnosis Osteoarthritis of both hips(Discharge Diagnosis) - 08/23/23 HTN, goal below 130/80(Discharge Diagnosis) - 08/23/23 Diabetic neuropathy(Discharge Diagnosis) - 08/23/23 Discharge Disposition: Home or Self Care Attending Physician: MD Zendejas Christopher Allergies, Adverse Reactions, Alerts Substance Criticality Severity Reaction Reaction Severity Status doxycycline Urticaria Active Assessment and Plan Extracted from: Title:Office Visit Note Author:DO Germain Clair e S Date:08/23/23 1.Osteoarthritis of both h ips Chronic condition exacerbated/progressive/side effects of treatment Goal:Resolution Data:unique tests reviewed: _XR hip/knee Plan: Refer to sports medicine for consideration of injection. PT referral placed again. 2.HTN, goal below 130/80 Chronic condition, stable Goal:_ Data:external notes including: _cardiology 08/2023 Plan: No signs on HTN urgency and some improvement in BPs on minoxidil. F/u with cardiology 2 weeks. May benefit from dieretic with swelling. 3.Diabetic neuropathy Chronic condition exacerbated/progressive/side effects of treatment Goal:Resolution Data:external notes including: _neurology 08/2023 Plan: Has failed gabapentin in the past. Agrees to trial of duloxetine; has f/u next week. Immunizations Given and Recorded Vaccine Date Status Refusal Reason influenza virus vaccine, inactivated 02/09/23 Give n Medications anelica dried root Start: 08/23/23 8:53:00 AM EDT, anelica dried root, 0.7 mL Start Date: 08/23/23 Status: Ordered DULoxetine 30 mg oral delayed release capsule Start: 08/23/23 10:05:00 AM EDT, 1 cap, PO, Daily, Disp# 30 cap, Pharmacy: [facility] Start Date: 08/23/23 Stop Date: 09/22/23 Status: Ordered minoxidil 2.5 mg oral tablet Start: 08/23/23 8:51:00 AM EDT, 1 tab, PO, Daily Start Date: 08/23/23 Status: Ordered nystatin 100,000 units/g topical cream Start: 04/06/23 10:44:00 PM EST, See Instructions, Disp# 60 g, Refills: 1, apply to affected areas three times daily, Pharmacy: [facility] Start Date: 04/06/23 Status: Ordered One Touch Delica Plus (33G) Lancets Start: 05/01/23 7:00:00 PM EST, See Instructions, Disp# 100 each, Refills: 3, check blood glucose 1xper day for concerns of hypo or hyperglycemia, Note to Pharmacy: E11.65; e11.59; e11.40, Pharmacy: [facility] Start Date: 05/01/23 Status: Ordered One Touch Delica Plus (33G) Lancets Start: 04/30/23 11:41:00 AM EST, See Instructions, Disp# 100 each, Refills: 3, check blood glucose 1x per day and as needed for concerns of hypo or hyperglycemia, Note to Pharmacy: E11.65; e11.59; e11.40, Pharmacy: [facility] Start Date: 04/30/23 Status: Ordered One Touch Verio Flex Glucose Monitor Start: 04/30/23 11:41:00 AM EST, See Instructions, Disp# 1 each, Test once daily, Note to Pharmacy: Dispense as written; Dx: e11.40; E11.59, Pharmacy: [facility] Start Date: 04/30/23 Status: Ordered One Touch Verio Test Strips Start: 05/01/23 7:00:00 PM EST, See Instructions, Disp# 50 each, Refills: 3, check blood glucose once daily for concerns of hypo or hyperglycemia, Note to Pharmacy: E11.65; E11.59; E1140, Pharmacy: [facility] Start Date: 05/01/23 Status: Ordered One Touch Verio Test Strips Start: 04/30/23 11:41:00 AM EST, See Instructions, Disp# 50 each, Refills: 3, check blood glucose 3xper day and as needed for concerns of hypo or hyperglycemia, Note to Pharmacy: E11.65; E1159; E11.40, Pharmacy: [facility] Start Date: 04/30/23 Status: Ordered Mental Status 08/23/23 Barriers to Learning one year None evide nt Mandatory Health Literacy Documentation Yes Health Literacy Communication Barriers N ever Primary Language Tamazight Problem List Condition Confirmation Course Effective Dates Status Health St atus Informant Diabetes Confirmed Active History of Lyme disease Confirmed Active History of spinal fusion Confirmed Active HTN, goal below 130/80 Confirmed Active Diabetic neuropathy Confirmed Active PVD (peripheral vascular disease) Confirmed Active Varicose vein of leg Confirmed Active Diagnosis Diagnosis Type Effective Dates Health Status Clinical Service Informant Osteoarthritis of both hips Discharge Diagnosis 08/23/23 Non-Specified HTN, goal below 130/80 Discharge Diagnosis 08/23/23 Non-Specified Diabetic neuropathy Discharge Diagnosis 08/23/23 Non-Specified Vital Signs Most recent to oldest [Reference Range]: 1 Patient Weight 117.9 kg (08/23/23 8:56 AM) Heart Rate 69 bpm (08/23/23 8:56 AM) Respiratory Rate 17 br/min (08/23/23 8:56 AM) Blood Pressure 180/102mmHg (08/23/23 8:56 AM) Social History Social History Type Response Smoking Status Never smoked cigaret carlos Sex Male FCM Outpt Note * MD Zendejas Christopher: MODIFY MD Zendejas Christopher: MODIFY Event Display: FCM Outpt Note Authored Date: Chief Complaint pain,numbness, weakness in B/L legs, wounds still on legs, spraying clorox soln on wounds. History of Present Illness 63 year old male presenting for f/u. HTN - is following with cardiology - started on minoxidil x 1 week - f/u with cardiology in 2 weeks - blood pressure in office 180/100; asymptomatic- denies dyspnea, chest pain, headache, blurred vision - notes increased swelling/pain in feet since starting minoxidil - cardiology states that often need beta- doug/diuretic due to reflex tachycardia vasodilation related edema. Did not start with mioxidil due to concern for side effect with prior medications Hip/Knee Pain and neuropathy - XR RightHip:Severe right and moderate left hip osteoarthritis, similar to prior exam. - XR Left Knee:Degenerative changes and chondrocalcinosis are noted - referral placed for PT at visit 2 weeks ago- has not gotten scheduled yet - saw neurology08/16/23-no new recommendations Review of Systems As per above Physical Exam Vitals & Measurements HR:69(Monitored) RR:17 BP:180/102 SpO2:99% WT:117.9kg WT:117.900kg(Dosing) PHQ2 Data(Data Documented on:08/23/2023 08:53) Emotional health assessment NEGATIVE General:Well-developed, well-nourished patient, in no acute distress, pleasant and normal affect, intact memory. Eyes:No scleral injection or discharge. Lungs:Clear to auscultation bilaterally with good effort. Cardiac:Regular rate and rhythm.No murmurs. Neurologic:Grossly intact cranial nerves Assessment/Plan 1.Osteoarthritis of both hips Chronic condition exacerbated/progressive/side effects of treatment Goal:Resolution Data:unique tests reviewed: _XR hip/knee Plan: Refer to sports medicine for consideration of injection. PT referral placed again. 2.HTN, goal below 130/80 Chronic condition, stable Goal:_ Data:external notes including: _cardiology 08/2023 Plan: No signs on HTN urgency and some improvement in BPs on minoxidil. F/u with cardiology 2 weeks. May benefit from dieretic with swelling. 3.Diabetic neuropathy Chronic condition exacerbated/progressive/side effects of treatment Goal:Resolution Data:external notes including: _neurology 08/2023 Plan: Has failed gabapentin in the past. Agrees to trial of duloxetine; has f/u next week. Attestation Patient's case reviewed in detail with Dr. Germain, agree with detail of history and physical as documented above. Plan reviewed in detail with providing resident physician. Problem List/Past Medical History Ongoing Diabetes Diabetic neuropathy History of Lyme disease History of spinal fusion HTN, goal below 130/80 PVD (peripheral vascular disease) Varicose vein of [...] the next year) Due Adult COVID-19 Vaccination due08/23/23Unknown Frequency Adult Social Determinants of Health Screening due08/23/23Unknown Frequency Adult Tdap/Td Vaccine due08/23/23Unknown Frequency Body Mass Index due08/23/23Unknown Frequency Colorectal Cancer Screening due08/23/23Unknown Frequency Diabetic Eye Exam due08/23/23Unknown Frequency Hepatitis C Screening due08/23/23One-time only Pneumococcal Vaccine Older Adults due08/23/23One-time only Shingles Vaccine due08/23/23One-time only Due In Future Adult Influenza Vaccine not due until09/12/23and every 1year Diabetes Management A1c not due until04/30/24and every day Satisfied(in the past 1 year) Satisfied Adult Influenza Vaccine on02/09/23.Satisfied by PK Wu Donna Diabetes Management A1c on04/30/23.Satisfied by Contributor_system, [email or web address] Lipid Screening on04/30/23.Satisfied by Contributor_system, [email or web address] Electronic Signature on File Electronically Reviewed/Signed by: Mickie Germain DO Author Signature Dt/Tm:08/23/2023 08:01 PM Resident Department of Family Medicine Electronically Reviewed/Signed by: Jason Zendejas MD Cosigner Signature Dt/Tm: 08/24/2023 08:53AM Department of Family Medicine CSN Patient Care team information Care Team Personnel Name: None, NoneFirst Position: Provider - Terminated Member Role: Primary Care Provider Care Team Related Persons Name: SOLITARIO RHOADES Address: [place] Address: home [address] [place] [address] [place] [phone]
--- OUTSIDE RECORDS SUMMARY | 2023-09-12 09:26 | External Medical Summary ---
Author Name Unknown Address Unknown Organization K0G:[facility] [address] [place] [address] Laboratory Report Ordering Provider Test Date Status RAI KRUSE 09/04/2023 07:05:45 Final Observation Date Value Abnormality Reference (Units ) Status WBC, Total 09/04/2023 07:05:45 6.04 4.00-10.8 0 (K/uL) Final RBC 09/04/2023 07:05:45 4.56 4.50-5.25 (M/uL) Final Hemoglobin 09/04/2023 07:05:45 13.0 Below low normal 14 .0-16.8 (g/dL) Final HCT 09/04/2023 07:05:45 39.8 Below low normal 40. 0-48.4 (%) Final MCV 09/04/2023 07:05:45 87.3 82.0-99.5 (fL) Final MCH 09/04/2023 07:05:45 28.5 27.0-34.0 (pg) Final MCHC 09/04/2023 07:05:45 32.7 32.0-36.0 (g/dL) Final RDW 09/04/2023 07:05:45 14.2 11.5-15.5 (%) Final Platelets 09/04/2023 07:05:45 131 Below low normal 140 -400 (K/uL) Final MPV 09/04/2023 07:05:45 11.3 6.6-11.1 ( fL) Final Performing Location [facility] [address] [place] [address]
--- OUTSIDE RECORDS SUMMARY | 2023-09-12 09:26 | External Medical Summary | Summary of Care ---
Author Name Unknown Organization [facility] Address [address] [address] Phone [phone] Care Team Providers Care Tacking Stitch Remover Name Role Phone Marcellus Mickie Primary Care Provider [phone] Encounter Details Date Type Department Care Team (Late st Contact Info) Description 08/04/2023 Result Scan Unspecified Department Pravin Dykes PA-C [address] [place] [address] <No scans attached> Allergies No known active allergiesdocumented as of this encounter (statuses as of 08/18/2023) Medications Medication Sig Dispensed Refills Start Date End Date Status Losartan Potassium 50 MG Oral Tablet (Cozaar) Take 1 Tablet by mouth in the morning. Active Nystatin 282359 UNIT Oral Tablet Take by mouth. Active [...] on file documented as of this encounter Plan of Treatment Upcoming Encounters Date Type Department Care Team (Late st Contact Info) Description 08/20/2023 8:00 AM EDT Office Visit Wound Care, [facility] [address] [place] [address] Nancie Zhou, CRISTELA [address] [facility] [place] [address] Health Maintenance Due Date Last Done Comments [...] Not on filedocumented as of this encounter Procedures Procedure Name Priority Date/Time Associated Diagnosis Comments OUTSIDE LAB RESULTS 08/04/2023 documented in this encounter Results * OUTSIDE LAB RESULTS (08/04/2023) 08/04/2023 Pravin Dykes PA-C LABORATORY documented in this encounter Care Teams Tacking Stitch Remover Relationship Specialty Start Date End Date Mickie Germain DO [address] [place] [address] PCP - General Family Medicine 07/21/23 documented as of this encounter
--- NOTE | 2023-09-12 10:30 | Emergency Department Note ---
History of Present Illness General Chief complaint: Foot Injury/Pain Stated complaint: FOOT WOUNDS THAT WILL NOT HEAL Time Seen by Provider: 09/12/23 09:58 History of Present Illness Maximum Pain Intensity: 9 This is a 63-year-old male that presents to the emergency department via private vehicle accompanied by brother with complaints of "bilateral leg pain". The patient notes that for the past several months now he has been experiencing lower extremity pain. He notes chronic open wounds overlying the posterior ankles. He states that the one on the right has been present for about a year on the left for about 2 years. He notes he has undergone skin grafting previously. He states that at 1 point the tissue on the left was down to the Achilles tendon. He notes slow healing. He notes a diagnosis of idiopathic neuropathy. He notes he was just discharged from [facility] a few days ago. The brother at bedside notes the patient is currently living with him and sleeping in a recliner in his living room. The patient denies any fevers or chills. No nausea or vomiting. No chest pain. He does question if perhaps he may have some sort of lung infection as he feels what he describes as a tightness in his lungs but notes this is not necessarily new, just present today. Home Medications Medication Instructions Recorded Confirmed Type losartan 50 mg tablet 50 mg PO DAILY 05/13/23 09/12/23 History Danii Supplement 1 cap PO DAILY 08/23/23 09/12/23 History minoxidil 2.5 mg tablet 2.5 mg PO Q OTHER DAY 08/23/23 09/12/23 History nystatin 100,000 unit/gram topical 1 applic topical DAILY PRN flare 09/12/23 09/12/23 History powder (Nyamyc) under skin folds Allergies Allergy/AdvReac Type Severity Reaction Status Date / Time doxycycline Allergy Mild URTICARIA Verified 09/12/23 11:48 Past Med/Surg History Problem List (Updated 09/12/23 @ 14:27 by Adolfo Mcgarry PA-C) Bilateral leg pain (Acute) Failure to thrive in adult Chronic wound (Acute) Medical non-compliance Idiopathic polyneuropathy Nihilism Stenosis of both vertebral arteries Dyslipidemia Ambulatory dysfunction PAD (peripheral artery disease) Uncontrolled hypertension Stroke-like symptoms DM2 (diabetes mellitus, type 2) RAZA (acute kidney injury) Lyme disease History of CVA (cerebrovascular accident) Elevated troponin I level (Acute) Hypertensive urgency (Acute) Weakness (Acute) Hypertension (Acute) PVD (peripheral vascular disease) Nonhealing nonsurgical wound (Acute) Abnormal ankle brachial index Numbness and tingling in both hands Numbness and tingling of both lower extremities Elevated blood sugar Vitamin B12 deficiency Medical History H/o Lyme disease Social History Smoking Status: Never smoker Hx Alcohol Use: No Hx Substance Use: No Preferred Language: [place] Communication Ability: Effective Visual Impairment: No Limitations Hearing Ability: Normal Lead Welder Required: No Beliefs That Will Affect Care: None marital status: Unknown Current Living Situation: Family Current Living Situation Comment: living with brother and sister in law current occupational status: unemployed Feels Safe at Home: Yes caffeine: Yes during the past year weight has: remained stable Assistive Devices: Walker Review of Systems A total of 10 systems reviewed and were otherwise negative Physical Exam Vital Signs Vital Signs - 24 hr 09/12/23 09:26 09/12/23 11:36 09/12/23 12:03 Temperature 36.7 C Temperature Source Oral Pulse Rate 114 H 68 Pulse Rate from SpO2 Sensor 70 67 Respiratory Rate 20 17 16 Respiratory Effort / Characteristics Non-Labored Spontaneous Respiratory Depth Normal Respiratory Pattern Blood Pressure 201/128 H 175/136 H 203/116 H Blood Pressure [Left Arm] Blood Pressure Mean 152 149 145 Blood Pressure Mean [Left Arm] Blood Pressure Position [Left Arm] Pulse Oximetry 96 95 97 Oxygen Delivery Method Room Air Sepsis Recent Fever Within 48 Hours No Sepsis New/Unexplained Change in Mental Status N/A Sepsis Action Taken by Nursing No Action Required 09/12/23 14:15 Temperature Temperature Source Pulse Rate Pulse Rate from SpO2 Sensor Respiratory Rate 17 Respiratory Effort / Characteristics Non-Labored Spontaneous Respiratory Depth Normal Respiratory Pattern Regular Blood Pressure Blood Pressure [Left Arm] 199/122 H Blood Pressure Mean Blood Pressure Mean [Left Arm] 147 Blood Pressure Position [Left Arm] Semi-fowlers Pulse Oximetry 94 Oxygen Delivery Method Room Air Sepsis Recent Fever Within 48 Hours Sepsis New/Unexplained Change in Mental Status Sepsis Action Taken by Nursing VITAL SIGNS - Vital signs and nursing notes were reviewed. Stable and afebrile. GENERAL - 63-year-old male appearing his stated age who is in no acute distress. Communicates well with provider and answers questions appropriately. SKIN - Chronic appearing open wounds to the posterior ankles overlying the Achilles. They are with granulation tissue. No purulence.No crepitus. No lymphangitic streaking. HEAD - NC/AT. EYES - PERRL with EOMI bilaterally. Sclera anicteric. EARS - No deformities of external structures noted on gross examination bilaterally. NOSE - Midline and without cyanosis. No epistaxis or purulent drainage noted. MOUTH/OROPHARYNX - Without perioral cyanosis. NECK - Neck with FROM. No nuchal rigidity. LUNGS - CTA CARDIAC - RRR ABDOMEN - Abdominal contour normal without pulsations or visible masses. BS normoactive all four quadrants. No tenderness, palpable masses, hepatosplenomegaly, or ascites noted. EXTREMITIES - No clubbing or peripheral cyanosis. Lower extremities are appropriately warm and perfused. +5/5 strength noted in UE/LE bilaterally. NEUROLOGIC - Cranial nerves grossly intact. PSYCH - Alert, oriented and pleasant on exam. Pt is very pleasant and interacts well with examiner. Course Administered Medications Discontinued Medications Losartan Potassium (Losartan Potassium 50 Mg Tab) 50 mg PO NOW STA Stop: 09/12/23 12:53 Last Admin: 09/12/23 13:40 Dose: 50 mg Documented By: DUNIA Oxycodone HCl (Oxycodone Hcl Ir 5 Mg Tab (Immediate Release)) 5 mg PO NOW STA Stop: 09/12/23 11:03 Last Admin: 09/12/23 11:06 Dose: 5 mg Documented By: DUNIA Medical Decision Making Laboratory Data 09/12/23 10:50 09/12/23 10:50 Lab Results 09/12/23 09/12/23 09/12/23 Range/Units 10:50 12:50 13:01 WBC 6.53 (4.8-10.8) K/ul RBC 5.02 (4.70-6.10) M/uL Hgb 14.5 (14.0-18.0) g/dl Hct 43.0 (42.0-52.0) % MCV 85.7 (80.0-100.0) fL MCH 28.9 (25.0-34.0) pg MCHC 33.7 (32.0-36.0) g/dL RDW Std Deviation 43.4 (36.4-46.3) fL RDW Coeff of Arcadio 14.1 (11.5-14.5) % Plt Count 158 (130-400) K/uL MPV 11.5 (9.4-12.4) fL Immature Gran % (Auto) 0.2 % Neut % (Auto) 73.9 % Lymph % (Auto) 15.3 % [place] % (Auto) 8.0 % Eos % (Auto) 2.0 % Baso % (Auto) 0.6 % Neut # (Auto) 4.83 (1.40-6.50) K/uL Lymph # (Auto) 1.00 L (1.20-3.40) K/uL Florence # (Auto) 0.52 (0.11-0.59) K/uL Eos # (Auto) 0.13 (0.00-0.50) K/uL Baso # (Auto) 0.04 (0.00-0.20) K/uL Immature Gran # (Auto) 0.01 (0.01-0.20) K/uL ESR 25 H (0-20) mm/hr PT 11.7 (9.0-12.0) Seconds INR 1.1 (0.9-1.1) APTT 28 (21-31) Seconds PTT Ratio 1.0 Sodium 141 (136-145) mmol/L Potassium 3.7 (3.5-5.1) mmol/L Chloride 107 (98-107) mmol/L Carbon Dioxide 25 (21-32) mmol/L Anion Gap 9 (3-11) BUN 24 H (6-23) mg/dl Creatinine 1.31 (0.6-1.4) mg/dl Est Cr Clr Drug Dosing Not Reportable Est GFR ( Amer) 65.8 ml/min Est GFR (Non-Af Amer) 56.7 ml/min BUN/Creatinine Ratio 18.3 (10-20) Glucose 201 H (70-99(Fasting)) mg/dl Lactate 2.0 (0.4-2.0) mmol/L Calcium 9.2 (8.6-10.3) mg/dl Magnesium 1.8 (1.7-2.4) mg/dl Total Bilirubin 0.4 (0.2-1.0) mg/dl AST 13 (13-39) U/L ALT 20 (7-52) U/L Alkaline Phosphatase 54 (34-104) U/L Troponin I High Sens 51.8 H* 59.9 H* (0-20) pg/ml C-Reactive Protein < 0.50 (0-0.5) mg/dl B-Natriuretic Peptide 222 H (0-100) pg/ml Total Protein 7.4 (6.0-8.3) gm/dl Albumin 4.4 (3.4-5.0) gm/dl Globulin 3.0 (2.5-4.0) gm/dl Albumin/Globulin Ratio 1.5 (0.9-2) Procalcitonin Cancelled < 0.02 TSH 1.282 (0.300-4.500) uIu/ml Imaging Data Radiologist's Impression: Chest X-Ray 09/12/23 10:26 XR chest 1V portable CLINICAL HISTORY: sensation of lung tightness COMPARISON STUDY: Chest radiograph July 27, 2023. FINDINGS: Lung volumes are normal. Lungs are clear. There is no pneumothorax or pleural effusion. Cardiomegaly is unchanged. Mediastinal contours are stable. There is no evidence for pulmonary edema. IMPRESSION: No acute cardiopulmonary findings. Stable cardiomegaly. ACT 112: Negative or not required by law. Electronically signed by: Sami Collazo M.D. 09/12/2023 11:33 AM [facility] Narrative Patient was seen and evaluated as above in room C11 Review was performed of triage nursing notes and vital signs. I did review pertinent previous visits and patient history. After obtaining a thorough history and physical examination the above work up was performed. Patient presents to us today for evaluation of bilateral lower extremity pain, slow wound healing and while obtaining review of systems questions patient does notes what he describes as some tightness in the lungs. Patient is concerned he may have some sort of mycoplasma infection but denies any history of previous diagnosis or test to suggest this finding. Patient also inquired whether not this could be secondary to Lyme and is doubtful of the accuracy of the recent negative Lyme test. Patient also noted to be significantly hypertensive on arrival but notes that elevated blood pressure is normal for him and that he frequently has systolic ranges in the [id number]. Patient does caution me when I discuss antihypertensive medication that previously his blood pressure was lowered and he had strokelike symptoms secondary to the drop in blood pressure. Furthermore, patient's brother is at bedside and inquires whether or not placement to a facility such as [facility] is possible. Although the brother notes that he has happy to care for him, does inquire if placement to a facility is possible Options of care were discussed with the patient. IV access was established. Labs were drawn. There is no leukocytosis or concerning anemia. EKG was performed and reveals sinus rhythm with right bundle branch block. This was compared to EKG of March 21, 2023. Rhythm tracings are similar. Chest x-ray was performed and per my interpretation reveals cardiomegaly. No acute findings. Formal radiology report is as above. I did agree to a tablet of oxycodone for the patient's pain in the legs. Labs reveal no leukocytosis or concerning anemia. Mild elevation of ESR at 25. Coags normal. Mild elevation of BUN at 24. Hyperglycemia 204. Troponin mildly elevated at 51.8. Procalcitonin less than 0.02. TSH normal. Blood culture pending. I again reviewed the patient's elevated blood pressure here today and importance of treatment as prolonged blood pressure can be harmful and even deadly. Patient again noted that his blood pressure is generally in the 200 range and upon review of the previous blood pressures in the EMR he has been hypertensive on the majority of all blood pressure readings. With the oxycodone treating the patient's leg pain the blood pressure did begin to improve trending into the 170s systolic. At this time we will proceed with inpatient management. Case discussed with the hospitalist service. I did review the patient's arterial Doppler studies from earlier this year I do not believe that repeat studies are needed at this time on an emergent basis. No strokelike symptoms at the present time. No headache. Please refer to further documentation regarding his stay. GCS: 15 In the evaluation and treatment of this patient the following differential diagnoses were entertained: Fracture, dislocation, subluxation, contusion, peripheral arterial disease, neuropathy, hypertensive emergency/urgency, among others. Impression & Plan Hypertensive urgency, Elevated troponin I level, Chronic wound, Bilateral leg pain Discharge Plan Visit Data Chief Complaint: Foot Injury/Pain Stated Complaint: FOOT WOUNDS THAT WILL NOT HEAL ED Provider: Carrie Duggan ED Midlevel Provider: Adolfo Mcgarry Discharge Problem: Hypertensive urgency, Elevated troponin I level, Chronic wound, Bilateral leg pain Patient Disposition: Admitted As Inpatient Condition: Good Forms Stand Alone Forms: My [facility] Prescriptions Prescriptions: No Action losartan 50 mg tablet 50 mg PO DAILY Danii Supplement 1 cap PO DAILY Rx Instructions: otc, as directed. minoxidil 2.5 mg tablet 2.5 mg PO Q OTHER DAY nystatin [Nyamyc] 100,000 unit/gram powder 1 applic TOPICAL DAILY PRN (Reason: flare under skin folds) Referrals Referrals: Jason Zendejas MD [Primary Care Provider] -
[2023-09-12] MEDS: oxyCODONE HCL IR 5 MG TAB (IMMEDIATE RELEASE) PO STA (11:06)
[2023-09-12 11:25] LABS: Basophils # (auto) 0.04 K/uL (0.00-0.20); Basophils % (auto) 0.6 %; Eosinophils # (auto) 0.13 K/uL (0.00-0.50); Hemoglobin 14.5 g/dl (14.0-18.0); Immature Granulocytes # (auto) 0.01 K/uL (0.01-0.20); Immature Granulocytes % (auto) 0.2 %; Lymphocytes % (auto) 15.3 %; Mean Corpuscular Hemoglobin 28.9 pg (25.0-34.0); Mean Corpuscular Hgb Conc 33.7 g/dL (32.0-36.0); Mean Corpuscular Volume 85.7 fL (80.0-100.0); Mean Platelet Volume 11.5 fL (9.4-12.4); Monocytes # (auto) 0.52 K/uL (0.11-0.59); Neutrophils # (auto) 4.83 K/uL (1.40-6.50); Neutrophils % (auto) 73.9 %; Platelet Count 158 K/uL (130-400); RDW Coefficient of Variation 14.1 % (11.5-14.5); RDW Standard Deviation 43.4 fL (36.4-46.3); Red Blood Count 5.02 M/uL (4.70-6.10); White Blood Count 6.53 K/ul (4.8-10.8)
--- NOTE | 2023-09-12 11:35 | XRay Report ---
XR chest 1V portable CLINICAL HISTORY: sensation of lung tightness COMPARISON STUDY: Chest radiograph July 27, 2023. FINDINGS: Lung volumes are normal. Lungs are clear. There is no pneumothorax or pleural effusion. Car diomegaly is unchanged. Mediastinal contours are stable. There is no evidence for pulmonary edema. IMPRESSION: No acute cardiopulmonary findings. Stable cardiomegaly. ACT 112: Negative or not required by law. Electronically signed by: Sami Collazo M.D. 09/12/2023 11:33 AM
[2023-09-12 11:37] LABS: Alanine Aminotransferase 20 U/L (7-52); Albumin Globulin Ratio 1.5 (0.9-2); Albumin Level 4.4 gm/dl (3.4-5.0); Alkaline Phosphatase 54 U/L (34-104); Anion Gap 9 (3-11); Aspartate Aminotransferase 13 U/L (13-39); BUN Creatinine Ratio 18.3 (10-20); Bilirubin,Total 0.4 mg/dl (0.2-1.0); Blood Urea Nitrogen 24 mg/dl (6-23); C Reactive Protein < 0.50 mg/dl (0-0.5); Calcium 9.2 mg/dl (8.6-10.3); Carbon Dioxide 25 mmol/L (21-32); Chloride 107 mmol/L (98-107); Est GFR (African American) 65.8 ml/min; Est GFR (Non-African American) 56.7 ml/min; Glucose 201 mg/dl (70-99(Fasting)); Potassium 3.7 mmol/L (3.5-5.1); Sodium 141 mmol/L (136-145); Total Protein 7.4 gm/dl (6.0-8.3)
[2023-09-12 11:47] LABS: Troponin I High Sensitivity 51.8 pg/ml (0-20)
[2023-09-12 11:51] LABS: INR 1.1 (0.9-1.1); Partial Thromboplastin Time 28 Seconds (21-31); Prothrombin Time 11.7 Seconds (9.0-12.0)
[2023-09-12 11:52] LABS: Thyroid Stimulating Hormone 1.282 uIu/ml (0.300-4.500)
--- NOTE | 2023-09-12 12:17 | History & Physical Report ---
Date of Service September 12, 2023 Assessment & Plan (1) Failure to thrive in adult: Plan: Admit to PCU/telemetry for now Patient is currently hypertensive with systolics in the low 200s but otherwise stable Presented to the ED today with his brother due to needing placement as he has no safe place to live at this time Patient had been sleeping on his brothers recliner, however, this has not been a permanent option Patient has multiple poorly controlled chronic medical conditions causing the majority of his current disabilities, however, his medical noncompliance and distrust of the medical system is preventing adequate treatment Patient is interested in being evaluated by PT/OT with plans for placement on discharge. His goal is to eventually go back to [place], but he needs to regain strength before this can be done Patient's noncompliance is likely going to continue to be an issue during his admission, I did have a long discussion with the patient and his brother regarding the need to meet us at [facility] to keep him safe and prevent further complications of his chronic medical conditions The patient expressed interest in working with us however I think it still going to be difficult to get him to start any new medications, ongoing discussions will be needed competency assessments as I am still not certain he has complete insight into his multiple chronic medical conditions and their risks if not properly treated however, I do think he has the ability at this time to refuse treatment and leave AGAINST MEDICAL ADVICE if he wishes PT/OT/case management consults have been placed Will attempt to start SQ Lovenox for DVT prophylaxis as bilateral SCDs and/or NORA stockings will likely be too painful for the patient with his chronic lower extremity wounds Will start a heart healthy/DM type II diet with 2 g sodium restriction AM CBC, CMP, mag, PT/INR (2) Elevated troponin I level: Plan: Initial high-sensitivity troponin level elevated at 51, 2-hour repeat is in process Patient denies any chest discomfort today He does have a wide QRS rhythm today compared to previous normal sinus rhythm After further discussions with the patient, he is fine with taking aspirin today and moving forward He added that he took 2, 81 mg aspirins prior to arrival, and is in agreement with taking an additional 2 now for a total of 324 mg full dose aspirin with his elevated troponin I explained that the aspirin can also help with his severe peripheral arterial disease Continue to monitor on telemetry for now, if significantly elevated on repeat we will continue to trend high-sensitivity troponin (3) Ambulatory dysfunction: Plan: Patient's ambulatory dysfunction is likely multifactorial including multiple chronic lower extremity wounds due to his severe and untreated peripheral arterial disease, and severe peripheral neuropathy from uncontrolled DM type II Fall precautions PT/OT/case management consults Patient will need placement at the time of discharge (4) Uncontrolled hypertension: Plan: Blood pressure currently 203/116 Patient states this is close to his baseline denies current symptoms See cardiology note from 08/17/[address]23 for further details as Dr. Alvarez had a detailed discussion with the patient about recommendations and eventually had to settle on starting the patient on losartan and every other day minoxidil as this is what the patient was willing to take Patient confirms he is not due for his dose of minoxidil today, but did not have his dose of losartan this morning Will give his dose of losartan now Moving forward our next options will likely be either clonidine or a different nitrate, if needed will discuss further with the patient as starting the patient on new medications without first talking to him we will nearly guarantee the patient refusing them Patient expressed understanding of the significantly increased risk of strokes, heart attack, renal failure, and even for ongoing untreated severe hypertension Patient's brother was also in the room and expressed understanding of these risks for the patient (5) PAD (peripheral artery disease): Plan: See patient's chart and recent wound care/orthopedic notes regarding documentation of his severe peripheral arterial disease and patient's disinterest in medical management No signs of acute infection at this time with his chronic wounds, we will consult wound care nurse for further treatment Will start heel precautions, will defer to wound care nurse for topical treatments at this time Patient currently refusing aspirin and statin Despite discussions of further complications for ongoing noncompliance (6) DM2 (diabetes mellitus, type 2): Plan: Glucose was 201 on arrival, anion gap and bicarb are within normal limits Patient currently refusing insulin and oral medication for glycemic control Expressed understanding of risks of untreated hyperglycemia up to and including For now we will monitor BSG on daily BMP, will start heart healthy/DM type II diet (7) Chronic wound: Plan: Patient has been had bilateral lower extremity wounds for years with previous debridement See images and physical exam for further details Is being followed by the wound care center Wounds do not appear infected today, will consult wound care nurse for further monitoring and treatment Heel precautions have been ordered Continue daily aspirin now due to significant peripheral arterial disease Plan The patient was discussed with Dr. 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 Per review of the patient's chart, there is a consistent history of the patient refusing routine, guideline based treatment for his chronic medical conditions including uncontrolled hypertension, DM type II, peripheral arterial disease, dyslipidemia. Documented multiple times in various provider notes that the patient is often convinced that all of his symptoms caused by his chronic medical conditions are actually due to a chronic tickborne illness such as Lyme. On arrival to the ED he was noted to be hypertensive at 201/128, tachycardic at 114, but otherwise stable. Labs were significant for a lymphocyte count of 1.00, ESR 25, initial high-sensitivity troponin of 51. Chest x-ray was read as negative for acute findings. EKG shows a wide QRS pattern with bifascicular block which has replaced normal sinus rhythm. Prior to admission the patient was given 5 mg p.o. oxycodone. Patient was sitting in bed in no acute distress at the time of exam with his brother bedside, history was obtained from both. They confirm the patient's long history of medical noncompliance and lack of trust in most medications. The patient explains to me he feels as though the body is "1 system", and is able to heal itself. He feels as though many medications he has been placed on previously have not worked for him. For example he brings up an experience in [place] where he was admitted for significantly elevated hypertension with systolic blood pressure reportedly in the 280s. He states that they dropped his blood pressure too quickly which caused a mini stroke. I explained to him that while this is a potential risk of dropping someone's blood pressure too quickly, uncontrolled blood pressure also increases his risks of stroke, heart attack, renal failure, worsening vascular disease and heart failure, and a host of other life-threatening issues. I explained that when chronic medical conditions are left untreated for some time it can increase the risks of side effects when we finally do start to treat them. History is difficult to obtain from the patient at times as he will often cut the provider off intake the conversation in a different direction. I explained to the patient and his brother that we can admit him with plans for placement. However, I asked that he work with us as a team to come to [facility] and his treatment such as his hypertension while he is here. He expressed understanding and said he is willing to work with us but will want to have discussions prior to being started on any new medications. I asked him to repeat back to me my concerns for his untreated medical conditions such as his hypertension, peripheral arterial disease, diabetes mellitus. He was able to articulate that left untreated his chronic medical conditions could cause stroke, heart attack, worsening kidney disease, worsening heart failure, up to including . We did discuss CODE STATUS, he wishes to be a full code and for his brother to make medical decisions for him if he cannot make them himself. Please see recent outpatient notes from cardiology, neurology, wound care, orthopedics, and podiatry within the past year for further documentation and summary of the patient's chronic medical conditions and his typical refusal of research back, guideline based treatment. Please refer to Dr. Shields's attestation for any changes to the treatment plan Allergies Allergy/AdvReac Type Severity Reaction Status Date / Time doxycycline Allergy Mild URTICARIA Verified 09/12/23 11:48 Home Medications Medication Instructions Recorded Confirmed Type losartan 50 mg tablet 50 mg PO DAILY 05/13/23 09/12/23 History Danii Supplement 1 cap PO DAILY 08/23/23 09/12/23 History minoxidil 2.5 mg tablet 2.5 mg PO Q OTHER DAY 08/23/23 09/12/23 History nystatin 100,000 unit/gram topical 1 applic topical DAILY PRN flare 09/12/23 09/12/23 History powder ([facility]) under skin folds Past Med/Surg History Problem List (Updated 09/12/23 @ 14:27 by Adolfo Mcgarry PA-C) Bilateral leg pain (Acute) Failure to thrive in adult Chronic wound (Acute) Medical non-compliance Idiopathic polyneuropathy Nihilism Stenosis of both vertebral arteries Dyslipidemia Ambulatory dysfunction PAD (peripheral artery disease) Uncontrolled hypertension Stroke-like symptoms DM2 (diabetes mellitus, type 2) RAZA (acute kidney injury) Lyme disease History of CVA (cerebrovascular accident) Elevated troponin I level (Acute) Hypertensive urgency (Acute) Weakness (Acute) Hypertension (Acute) PVD (peripheral vascular disease) Nonhealing nonsurgical wound (Acute) Abnormal ankle brachial index Numbness and tingling in both hands Numbness and tingling of both lower extremities Elevated blood sugar Vitamin B12 deficiency Medical History H/o Lyme disease Social History Smoking Status: Never smoker Hx Alcohol Use: No Hx Substance Use: No Preferred Language: Tajik Communication Ability: Effective Visual Impairment: No Limitations Hearing Ability: Normal Inside Finisher Required: No Beliefs That Will Affect Care: None marital status: Unknown Current Living Situation: Family Current Living Situation Comment: living with brother and sister in law current occupational status: unemployed Feels Safe at Home: Yes caffeine: Yes during the past year weight has: remained stable Assistive Devices: Walker Physical Exam 2 Physical Exam: Physical Exam: General: In no acute distress, stated age, chronically ill-appearing, poor hygiene HEENT: Normocephalic, atraumatic, no scleral icterus, pupils around round, symmetrical, and reactive to light, moist mucus membranes, trachea midline, no thyromegaly Chest/Pulm: No respiratory distress, symmetrical chest expansion, clear breath sounds throughout Cardiac: RRR, no murmurs noted Abdomen: Negative for ascites and bruising, normoactive bowel sounds, soft, non-tender to palpation throughout Musculoskeletal: No acute trauma on exam, see pictures below of BL LE wounds/scars Extremities: Radial, dorsalis pedis, and posterior tibial pulses are intact and symmetrical, no edema noted in the BL LE's Skin: see pictures below of BL LE wounds/scars Neuro: Alert and oriented to person, place, month, year, and president, no focal defects, significant neuropathy in the BL LE's Psych: No acute distress, polite, often fluctuating mental focus, calm and cooperative during the exam Results & Data Results & Data Vital Signs (Past 12 Hours) Vital Signs Temp Pulse Resp BP Pulse Ox O2 Del Method 09/12/23 11:36 17 175/136 H 95 09/12/23 09:26 36.7 C 114 H 20 201/128 H 96 Room Air Laboratory Results Abnormal lab results 09/12/23 Range/Units 10:50 Lymph # (Auto) 1.00 L (1.20-3.40) K/uL ESR 25 H (0-20) mm/hr BUN 24 H (6-23) mg/dl Glucose 201 H (70-99(Fasting)) mg/dl Troponin I High Sens 51.8 H* (0-20) pg/ml Diagnostic Findings Chest X-Ray 09/12/23 10:26 XR chest 1V portable CLINICAL HISTORY: sensation of lung tightness COMPARISON STUDY: Chest radiograph July 27, 2023. FINDINGS: Lung volumes are normal. Lungs are clear. There is no pneumothorax or pleural effusion. Cardiomegaly is unchanged. Mediastinal contours are stable. There is no evidence for pulmonary edema. IMPRESSION: No acute cardiopulmonary findings. Stable cardiomegaly. ACT 112: Negative or not required by law. Electronically signed by: Sami Collazo M.D. 09/12/2023 11:33 AM ECG Additional Comments: Wide QRS rhythm Right bundle branch block Left posterior fascicular block Bifascicular block T wave abnormality, consider inferior ischemia Abnormal ECG When compared with ECG of 21-MAR-2023 16:03, Wide QRS rhythm has replaced Sinus rhythm Code Status & VTE Plan Code Status Full code Supervising Physician Co-Signing Physician Notes Patient was seen and examined , reports severe legs pain and inability to ambulate, he was noticed to have hypertensive urgency in ER and was refusing meds to bring it down , denies CP or SOB, fever he was just admitted recently here and transferred to rehab, discharged to home and is now back to ER plan is to control his blood pressure, unclear if he will take BP meds will start Clonidine increase Losartan to 100 mg daily pain control with narcotics Gabapentin, Lyrica did not work for him in the past agree with above assessment and plan PG Care Time/CCT Total # of Minutes Spent Total Time Spent with Patient: Total time spent is greater than 50% in coordination of care (as documented) at patient's floor/unit and/or counseling patient: Coding [place] [address] INT INP/OBS CARE MIN Patient Type Established Medical Decision Making High Complexity Diagnoses Failure to thrive in adult R62.7 Elevated troponin I level R79.89 Ambulatory dysfunction R26.2 Uncontrolled hypertension I10 PAD (peripheral artery disease) I73.9 DM2 (diabetes mellitus, type 2) E11.9 Chronic wound T14.8XXA
[2023-09-12 12:46] LABS: Magnesium 1.8 mg/dl (1.7-2.4)
[2023-09-12] MEDS: LOSARTAN POTASSIUM 50 MG TAB PO STA (13:40)
[2023-09-12 14:32] LABS: Appearance Urine Clear (Clear); Bacteria Urine Automated None Seen (None Seen); Bilirubin Urine Negative (Negative); Blood Urine Negative (Negative); Cast Urine Automated 0-2 /lpf (0-2); Color Urine Yellow; Epithelial Cell Urine Auto 0-2 /hpf (0-2); Glucose Urine UA Negative (Negative); Ketones Urine Negative (Negative); Leukocyte Esterase Urine Negative (Negative); Nitrite Urine Negative (Negative); Protein Urine 2+ (Negative); RBC Urine Automated 0-2 /hpf (0-2); Specific Gravity Urine 1.015 (1.000-1.030); Urobilinogen Urine Negative (Negative); WBC Urine Automated 0-5 /hpf (0-5)
[2023-09-12] MEDS ORDERED: NYSTATIN POWDER 15GM BTL EXT PRN (15:07)
[2023-09-12] MEDS ORDERED: Patient's HEIGHT &/or WEIGHT Needed SCH (15:15)
[2023-09-12] MEDS: cloNIDine HCL 0.1 MG TAB PO ONE (16:31)
[2023-09-12] MEDS: ASPIRIN 81 MG ECTAB PO STA (16:32)
[2023-09-12] MEDS: ACETAMINOPHEN 325 MG TAB PO SCH (16:34)
[2023-09-12] MEDS: oxyCODONE HCL IR 5 MG TAB (IMMEDIATE RELEASE) PO PRN (20:44)
[2023-09-12] MEDS: ENOXAPARIN INJ 40 MG/0.4 ML SYR SQ SCH (21:12)
[2023-09-12] MEDS: cloNIDine HCL 0.1 MG TAB PO SCH (21:13)
--- NOTE | 2023-09-12 22:42 | Electrocardiogram Report ---
Test Reason : Blood Pressure : / mmHG Vent. Rate : 086 BPM Atrial Rate : 000 BPM P-R Int : 000 ms QRS Dur : 128 ms QT Int : 446 ms P-R-T Axes : 000 117 -10 degrees QTc Int : 533 ms Probable Sinus rhythm with 1st degree A-V block Right bundle branch block Left posterior fascicular block Bifascicular block T wave abnormality, consider inferior ischemia Possible Inferior infarct Abnormal ECG When compared with ECG of 21-MAR-2023 16:03, No significant change Confirmed by Zay Garcia ([id number]) on 09/12/2023 10:42:17 PM Referred By: REFERRED SELF Confirmed By:Zay Garcia
--- NOTE | 2023-09-13 06:38 | Hospitalist Progress Note ---
Date of Service September 13, 2023 Assessment & Plan (1) Failure to thrive in adult: (2) Chronic wound: (3) Bilateral leg pain: (4) Ambulatory dysfunction: (5) PAD (peripheral artery disease): (6) Uncontrolled hypertension: (7) DM2 (diabetes mellitus, type 2): (8) History of CVA (cerebrovascular accident): (9) Elevated troponin I level: (10) PVD (peripheral vascular disease): Plan Pt is a 63 yo male with a past medical history of DMT2, HLD< ambulatory dysfunction, chronic ankle wounds with extensive PAD, hx CVA, HTN and idiopathic polyneuropathy who presents to the hospital on 09/11 for placement and chronic ankle wounds. #Chronic ankle wounds #Bilateral foot pain Patient has been had bilateral lower extremity wounds for years with previous debridement See images and physical exam for further details Is being followed by the wound care center Wounds do not appear infected today, will consult wound care nurse for further monitoring and treatment Continue daily aspirin due to significant peripheral arterial disease - will use ibuprofen cautiously with elevated Cr since pt states this is what helps his pain the most that he takes at home #Failure to thrive in adult #Ambulatory dysfunction Presented to the ED today with his brother due to needing placement as he has no safe place to live at this time Patient had been sleeping on his brothers recliner, however, this has not been a permanent option Patient has multiple poorly controlled chronic medical conditions causing the majority of his current disabilities, however, his medical noncompliance and distrust of the medical system is preventing adequate treatment Patient's ambulatory dysfunction is likely multifactorial including multiple chronic lower extremity wounds due to his severe and untreated peripheral arterial disease, and severe peripheral neuropathy from uncontrolled DM type II Patient is interested in being evaluated by PT/OT with plans for placement on discharge. His goal is to eventually go back to [place], but he needs to regain strength before this can be done - PT/OT consulted; pending eval #Mobitz type 2 - new noted on telemetry - cardiology consulted; pending #Uncontrolled hypertension Blood pressure overnight 210-230s systolic/ 110-120s diastolic, states at home it runs 190s systolic - denies any current symptoms of headache, chest pain, SOB, vision changes See cardiology note from 08/17/[address]23 for further details as Dr. Alvarez had a detailed discussion with the patient about recommendations and eventually had to settle on starting the patient on losartan and every other day minoxidil as this is what the patient was willing to take - overnight declined IV BP therapy and voiced understanding of risk of WI/CVA with persistent BP, this morning was amendable to try IV therapy but gradually - trialed 5 mg and 10 mg dose of hydralazine for BP with no improvement, pt told nursing staff he came for foot pain and does not want BP treated he wants pain treated - will continue to monitor, consider isosorbide or HCTZ if persistently elevated #Elevated troponin I level Initial high-sensitivity troponin level elevated at 51, repeat 59.9 Patient denies any chest discomfort today He does have a wide QRS rhythm today compared to previous normal sinus rhythm After further discussions with the patient, he is fine with taking aspirin today and moving forward He added that he took 2, 81 mg aspirins prior to arrival, and is in agreement with taking an additional 2 now for a total of 324 mg full dose aspirin with his elevated troponin I explained that the aspirin can also help with his severe peripheral arterial disease - suspect this is secondary to demand ischemia #PAD (peripheral artery disease) See patient's chart and recent wound care/orthopedic notes regarding documentation of his severe peripheral arterial disease and patient's disinterest in medical management No signs of acute infection at this time with his chronic wounds, we will consult wound care nurse for further treatment Will start heel precautions, will defer to wound care nurse for topical treatments at this time Patient currently refusing statin despite discussions of further complications for ongoing noncompliance #DMT2 (diabetes mellitus, type 2) Glucose was 201 on arrival, anion gap and bicarb are within normal limits Patient currently refusing insulin and oral medication for glycemic control Expressed understanding of risks of untreated hyperglycemia up to and including For now we will monitor BSG on daily BMP, will start heart healthy/DM type II diet DVT ppx: SQ Lovenox as bilateral SCDs and/or NORA stockings will likely be too painful for the patient with his chronic lower extremity wounds Admission and Anticipated Discharge Date Admission Date: September 12, 2023 Supervising Physician Co-Signing Physician Notes I personally examined the patient and verified all sandoval points of history and exam, discussed case, and agree with decision making with Dr Pedroza bilateral foot pain. Burning. Across his whole foot. Sometimes it goes the whole way up to just distal to his knee, but other times receipts to about his ankle. There is no clear inciting factor, but he did come in because the pain seems to be getting worse. He notes at home 2 to 400 mg of ibuprofen does well and he is requesting that herewe have ordered it. Discusses that his foot pain was worse after hydralazine . Vitals noted, in general he is awake and alert somewhat pressured speech. No physical distress. HEENT normocephalic atraumatic mucous membranes moist. Breathing unlabored no accessory muscle use good effort. Skin shows bilateral lower extremity ulcers, the one on his right heel/Achilles region appears reasonably superficial but does have a little bit of exudative discharge. No surrounding erythema, no tenderness. Foot painappears to have longstanding multifactorial neuropathyand this appears to be predominantly related to that. Given that ibuprofen seems to help his pain at fairly low doses, for now we will resume thisobviously with his severe hypertension would like to have him on something less likely to run into vascular issues for the long run, but acute use risk is fairly low. Ongoing outpatient follow-up. Lower extremity woundshe treats with a Clorox spray and then dressings. He notes that things were getting better but have stalled out. I discussed with him that since his method of taking care of the wound seems to have slowed progress, it would be quite reasonable to have our wound care team see himunfortunately per wound care's notes he declined any/all of their suggestions. 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 Will give trial to long-acting nitrates as it is possible he will allow this. DVT prophylaxisLovenox dispositionnot certain if he will be able to return to the home he was livingit sounds like this may not be a feasible living situation anymore. PT/OT eval and treat, case management input. Also not entirely clear to me why he seeks care from conventional medical sources only to decline all of that care and expels very alternative strategies that he would prefer. Given that he seems to prefer these alternative strategies, it is not clear to me why he continues to see conventional sources of care frequently only to decline the care that is offered. Subjective Pt is a 63 yo male with a past medical history of DMT2, HLD< ambulatory dysfunction, chronic ankle wounds with extensive PAD, hx CVA, HTN and idiopathic polyneuropathy who presents to the hospital on 09/11 for placement and chronic ankle wounds. Pt seen at bedside this morning and states that the reason he came into the hospital was because his ankle wounds and feet distal to the wounds are quite painful and because he was staying with his brother and needs placement. He states he mostly came for the foot pain. Discussed with him his very elevated blood pressures overnight and he states that although it is high he is totally asymptomatic with no chest pain, SOB, headache, or vision changes and states that he normally follows Dr. Alvarez who told him his blood pressure should be lowered slowly and last time he was here it was very high and they gave him something IV and it was dropped too much. He states the ankle wounds have been p resent for years and just are not healing well and he had seen a vascular surgeon before who tried to clean out the vascular system of one of his legs but it did not seem to help. Pt states the pain in his feet is largely a burning sensation from the ankle down "like a million bee stings at once" and he states it got worse after morning dosing of hydralazine to try to bring down his pressure. He states the pain has been worsening for awhile which is what brought him in but the pain got much worse after the hydralazine dose. Review of Systems Review of Systems: Per HPI. Physical Exam Physical Exam: General:Alert and oriented, no acute distress, HEENT: Normocephalic, moist oral mucosa, Cardio: Bradycardic but regular rhythm, no murmur, Resp:Lungs clear to auscultation b/l, no wheezes or rhonchi, Skin: Warm, pink, dry, Ext: Feet both with weak dorsalis pedis pulses bilaterally with wounds on back of both ankles, swelling of feet distal to wounds noted Results & Data Results & Data Vital Signs (Past 12 Hours) Vital Signs Temp Pulse Resp BP Pulse Ox O2 Del Method 09/13/23 03:31 36.9 C 18 236/127 H 94 Room Air 09/12/23 23:00 57 L 09/12/23 22:55 36.6 C 18 231/117 H 96 Room Air 09/12/23 19:47 36.3 C L 18 226/113 H 94 Room Air Resident Activity Tracking Resident Involvement: Resident Care Provided Care Provided: Adult [facility] Medicine
[2023-09-13 07:01] LABS: Basophils # (auto) 0.04 K/uL (0.00-0.20); Basophils % (auto) 0.7 %; Eosinophils % (auto) 3.5 %; Hematocrit (blood only) 38.5 % (42.0-52.0); Immature Granulocytes # (auto) 0.01 K/uL (0.01-0.20); Immature Granulocytes % (auto) 0.2 %; Lymphocytes # (auto) 1.27 K/uL (1.20-3.40); Lymphocytes % (auto) 22.2 %; Mean Corpuscular Hgb Conc 33.8 g/dL (32.0-36.0); Mean Corpuscular Volume 85.9 fL (80.0-100.0); Mean Platelet Volume 10.9 fL (9.4-12.4); Monocytes # (auto) 0.61 K/uL (0.11-0.59); Monocytes % (auto) 10.6 %; Neutrophils % (auto) 62.8 %; Platelet Count 146 K/uL (130-400); RDW Coefficient of Variation 14.1 % (11.5-14.5); RDW Standard Deviation 44.3 fL (36.4-46.3); Red Blood Count 4.48 M/uL (4.70-6.10); White Blood Count 5.73 K/ul (4.8-10.8)
[2023-09-13] MEDS: LOSARTAN POTASSIUM 50 MG TAB PO SCH (08:52)
[2023-09-13] MEDS: ASPIRIN 81 MG ECTAB PO SCH (08:52)
[2023-09-13] MEDS: hydrALAZINE HCL 20 MG/ML VIAL IV ONE (09:09)
[2023-09-13] MEDS: hydrALAZINE HCL 20 MG/ML VIAL IV PRN (09:45)
[2023-09-13] MEDS ORDERED: ACETAMINOPHEN 325 MG TAB PO PRN (09:52)
[2023-09-13 11:17] LABS: Bilirubin,Total 0.6 mg/dl (0.2-1.0); Calcium 8.8 mg/dl (8.6-10.3); Magnesium 1.9 mg/dl (1.7-2.4); Potassium 3.9 mmol/L (3.5-5.1)
[2023-09-13 11:23] LABS: Albumin Globulin Ratio 1.6 (0.9-2); BUN Creatinine Ratio 16.1 (10-20); Creatinine Clr Calc Pharmacy 69.7 ml/min; Est GFR (African American) 56.3 ml/min; Est GFR (Non-African American) 48.6 ml/min; Globulin 2.5 gm/dl (2.5-4.0); Total Protein 6.5 gm/dl (6.0-8.3)
--- NOTE | 2023-09-13 13:48 | Cardiology Consultation ---
Date of Consultation September 13, 2023 Assessment & Plan (1) Mobitz I: (2) 1st degree AV block: (3) Tachycardia: (4) Hypertension: Plan ASSESSMENT/PLAN: 1. Mobitz 1: Noted Mobitz 1 during usual sleeping hours. Asymptomatic. No syncope or near syncope. Recommend sleep study and if found to have sleep apnea, appropriate treatment. No indication for pacemaker. 2. First-degree AV block: First-degree AV block at baseline. Asymptomatic. Chronic (noted on 03/21/23). 3. Hypertension: Poorly controlled. Will defer to primary hospitalist service. History of noncompliance. Based on recorded history, would likely be helpful if 1 provider manages this while hospitalized. 4. Tachycardia: Likely sinus with first-degree AV block but difficult to discern P waves when more tachycardic. Carotid massage performed and heart rate trended downward. He is asymptomatic. He believes that his heart rate is elevated due to hydralazine, which is listed as a possible adverse reaction. Also, he complained multiple times about bilateral leg pain. Pain certainly can cause tachycardia. 5. Disposition: Plan of care communicated with Dr. Marti of the primary hospitalist service. Cardiology will sign off at this time. Continue to follow-up with his primary beaming inspector, Dr. Alvarez. Call with any further questions or concerns. Thank you for allowing me to participate in the care of your patient. Please call for any other questions or concerns. Sincerely, Lorenzo Garcia M.D. History of Present Illness Reason for Consultation: "Mobitz 2 on telemetry, new dx" Requesting Physician: Lor Pedroza Attending Physician: Abraham Marti DO History of Present Illness Mr. Irizarry is a 63-year-old gentleman with a history significant for poorly controlled hypertension, type 2 diabetes, peripheral arterial disease, dyslipidemia and chronic lower extremity wound. His primary beaming inspector is Dr. Alvarez. He was admitted on 09/12/2023 with ambulatory dysfunction. He states that his feet are burning and the pain was such that he came to the hospital for further evaluation. He was noted to be severely hypertensive with systolic blood pressure as high as 23 millimeters of mercury and diastolic pressure as high as 145 mmHg. He states that when he was living in [place] last year, he was able to maintain a modified keto diet and his blood pressure dropped to the 160s to 170s systolic. He acknowledges that his blood pressure has been high for many years. He has chronic but stable dyspnea on exertion. He denies chest pain. He has intermittent right lower extremity edema chronically. He denies syncope, near syncope, palpitations, melena, hematochezia, or hematuria. He states that he has had ticks in his hair intermittently over the years and has been diagnosed with Lyme disease. He has been treated with doxycycline. His only complaint today was leg burning and he requested multiple times that he received more NSAIDs. When asked, he acknowledges that he probably snores, but not loudly. He denies paroxysmal nocturnal dyspnea. He does not feel well rested when he wakes up in the morning. He takes naps but admits that he is sedentary and basically sits throughout the day. Review of systems: As above. Family history: Father had hypertension. Social history: He denies tobacco, alcohol, or drug abuse. . 2 adult daughters who live in [place]. He maintains contact with his daughters. No grandchildren. Worked as a [employer] in the past. He was unaccompanied. Allergies Allergy/AdvReac Type Severity Reaction Status Date / Time doxycycline Allergy Mild URTICARIA Verified 09/12/23 11:48 Home Medications Medication Instructions Recorded Confirmed Type losartan 50 mg tablet 50 mg PO DAILY 05/13/23 09/12/23 History Danii Supplement 1 cap PO DAILY 08/23/23 09/12/23 History minoxidil 2.5 mg tablet 2.5 mg PO Q OTHER DAY 08/23/23 09/12/23 History nystatin 100,000 unit/gram topical 1 applic topical DAILY PRN flare 09/12/23 09/12/23 History powder ([facility]) under skin folds Problem List (Updated 09/13/23 @ 14:15 by Zay Garcia MD) Tachycardia 1st degree AV block Mobitz I Bilateral leg pain (Acute) Failure to thrive in adult Chronic wound (Acute) Medical non-compliance Idiopathic polyneuropathy Nihilism Stenosis of both vertebral arteries Dyslipidemia Ambulatory dysfunction PAD (peripheral artery disease) Uncontrolled hypertension Stroke-like symptoms DM2 (diabetes mellitus, type 2) RAZA (acute kidney injury) Lyme disease History of CVA (cerebrovascular accident) Elevated troponin I level (Acute) Hypertensive urgency (Acute) Weakness (Acute) Hypertension (Acute) PVD (peripheral vascular disease) Nonhealing nonsurgical wound (Acute) Abnormal ankle brachial index Numbness and tingling in both hands Numbness and tingling of both lower extremities Elevated blood sugar Vitamin B12 deficiency Patient History Medical History H/o Lyme disease Social History Smoking Status: Never smoker Hx Alcohol Use: No Hx Substance Use: No Preferred Language: [place] Communication Ability: Effective Visual Impairment: No Limitations Hearing Ability: Normal Sifter Operator Required: No Beliefs That Will Affect Care: None marital status: Unknown Current Living Situation: Family Current Living Situation Comment: living with brother and sister in law current occupational status: unemployed Feels Safe at Home: Yes caffeine: Yes during the past year weight has: remained stable Assistive Devices: Walker Physical Exam Physical Exam: Gen.: No acute distress. Alert. HEENT: Anicteric sclera. Neck: No JVD. No bruits. Normal carotid upstrokes bilaterally. Cardiac: No ventricular heave. Regular and mildly tachycardic. Normal S1-S2. + S4. No murmurs. Pulmonary: Clear to auscultation bilaterally without wheezes, rales, or rhonchi. Abdomen: Soft, nontender, nondistended, with normoactive bowel sounds. No bruits noted. Extremities: 2+ radial pulses bilaterally. 1+ posterior tibialis pulses bilaterally. Trace right lower extremity edema. No cyanosis. Results & Data Vital Signs (Past 12 Hours) Vital Signs Temp Pulse Pulse Resp BP Pulse Ox O2 Del Method 09/13/23 11:00 36.7 C 79 16 153/111 H 97 Room Air 09/13/23 10:15 222/134 H 09/13/23 10:14 217/142 H 09/13/23 09:29 73 18 123/121 H Room Air 09/13/23 09:20 74 18 238/110 H 94 Room Air 09/13/23 09:13 71 18 191/145 H 94 Room Air 09/13/23 08:00 80 09/13/23 08:00 36.8 C 20 216/138 H 96 Room Air 09/13/23 06:00 51 L 09/13/23 03:31 36.9 C 18 236/127 H 94 Room Air Laboratory Results Laboratory Results - last 24 hr 09/12/23 09/12/23 09/13/23 15:31 Unknown 06:01 WBC 5.73 RBC 4.48 L Hgb 13.0 L Hct 38.5 L MCV 85.9 MCH 29.0 MCHC 33.8 RDW Std Deviation 44.3 RDW Coeff of [place] 14.1 Plt Count 146 MPV 10.9 Immature Gran % (Auto) 0.2 Neut % (Auto) 62.8 Lymph % (Auto) 22.2 [place] % (Auto) 10.6 Eos % (Auto) 3.5 Baso % (Auto) 0.7 Neut # (Auto) 3.60 Lymph # (Auto) 1.27 [place] # (Auto) 0.61 H Eos # (Auto) 0.20 Baso # (Auto) 0.04 Immature Gran # (Auto) 0.01 Sodium 141 Potassium 3.9 Chloride 106 Carbon Dioxide 29 Anion Gap 6 BUN 24 H Creatinine 1.49 H Est Cr Clr Drug Dosing 69.7 Est GFR ( Amer) 56.3 Est GFR (Non-Af Amer) 48.6 BUN/Creatinine Ratio 16.1 Glucose 129 H POC Glucose 98 Calcium 8.8 Magnesium 1.9 Total Bilirubin 0.6 AST 15 ALT 18 Alkaline Phosphatase 44 Total Protein 6.5 Albumin 4.0 Globulin 2.5 Albumin/Globulin Ratio 1.6 Urine Color Yellow Urine Appearance Clear Urine pH 6.0 Ur Specific [place] 1.015 Urine Protein 2+ H Urine Glucose (UA) Negative Urine Ketones Negative Urine Blood Negative Urine Nitrite Negative Urine Bilirubin Negative Urine Urobilinogen Negative Ur Leukocyte Esterase Negative Urine WBC (Auto) 0-5 Urine RBC (Auto) 0-2 U Hyaline Cast (Auto) 0-2 U Epithel Cells (Auto) 0-2 Urine Bacteria (Auto) None Seen Diagnostic Findings Labs reviewed and notable for elevated high-sensitivity troponin, mildly elevated BNP, abnormal but stable renal function, normal potassium, mild anemia on 09/13/2023. ECG personally reviewed from 09/12/2023: Probable sinus with first-degree AV block. RBBB. Inferior T wave inversion. Possible inferior infarct. 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 Late this morning and early afternoon, mild tachycardia, probable sinus tachycardia with first-degree AV block. Blood culture from 09/12/2023 negative x 2 thus far. History and physical report reviewed. Outpatient cardiology notes reviewed. Chest x-ray 09/12/2023: No acute cardiopulmonary findings per radiology. Echo 03/22/2023 [facility]: Normal LV systolic function. EF 55 to 60%. Severe concentric LVH. Mild AI. Medications Administered Current Inpatient Medications Acetaminophen (Acetaminophen 325 Mg Tab) 650 mg PO Q6H PRN PRN Reason: pain(1-4),headache,fever Stop: 10/12/23 15:59 Aspirin (Aspirin 81 Mg Ectab) 81 mg PO DAILY [facility] Stop: 10/13/23 08:59 Last Admin: 09/13/23 08:52 Dose: 81 mg Enoxaparin Sodium (Enoxaparin Inj 40 Mg/0.4 Ml Syr) 40 mg SQ Q24H ABEL Stop: 10/12/23 20:59 Last Admin: 09/12/23 21:12 Dose: Not Given Hydralazine HCl (Hydralazine Hcl 20 Mg/Ml Vial) 10 mg IV Q8 PRN PRN Reason: sbp>185 or dbp>95 Stop: 10/12/23 14:42 Last Admin: 09/13/23 09:45 Dose: 10 mg Ibuprofen (Ibuprofen 200 Mg Tab) 400 mg PO Q4H PRN PRN Reason: Pain or Fever Stop: 10/13/23 11:17 Losartan Potassium (Losartan Potassium 50 Mg Tab) 100 mg PO DAILY [facility] Stop: 10/13/23 08:59 Last Admin: 09/13/23 08:52 Dose: 100 mg Nystatin (Nystatin Powder 15gm Btl) 1 appln EXT DAILY PRN PRN Reason: flare under skin folds Stop: 10/12/23 15:06 Oxycodone HCl (Oxycodone Hcl Ir 5 Mg Tab (Immediate Release)) 5 mg PO Q4H PRN PRN Reason: Pain(6+) Stop: 09/26/23 12:51 Last Admin: 09/13/23 04:02 Dose: 5 mg PG Care Time/CCT Total # of Minutes Spent Total Time Spent with Patient: Total time spent is greater than 50% in coordination of care (as documented) at patient's floor/unit and/or counseling patient: Coding Level of Care Code 91490 INT INP/OBS CARE 2/55MIN Diagnoses Mobitz I I44.1 1st degree AV block I44.0 Tachycardia R00.0 Hypertension, unspecified type I10 Hypertension type: unspecified (4) Hypertension Hypertension type: unspecified Qualified Code(s): I10 - Essential (primary) hypertension
[2023-09-13] MEDS: IBUPROFEN 200 MG TAB PO PRN (14:40)
--- NOTE | 2023-09-13 18:52 | Billing Data ---
Date of Service September 13, 2023 Coding Level of Care Code 04398 SUB INP/OBS CARE MIN
[2023-09-13] MEDS: POLYETHYLENE (MIRALAX) 17 GM PACK PO PRN (20:23)
[2023-09-13] MEDS: ISOSORBIDE MONO EXTENDED REL 30 MG TABCR PO SCH (20:23)
[2023-09-14 05:56] LABS: Basophils # (auto) 0.03 K/uL (0.00-0.20); Basophils % (auto) 0.6 %; Eosinophils # (auto) 0.18 K/uL (0.00-0.50); Eosinophils % (auto) 3.3 %; Hematocrit (blood only) 38.9 % (42.0-52.0); Hemoglobin 12.9 g/dl (14.0-18.0); Immature Granulocytes # (auto) 0.02 K/uL (0.01-0.20); Immature Granulocytes % (auto) 0.4 %; Mean Corpuscular Hemoglobin 28.4 pg (25.0-34.0); Mean Corpuscular Hgb Conc 33.2 g/dL (32.0-36.0); Mean Corpuscular Volume 85.7 fL (80.0-100.0); Mean Platelet Volume 11.1 fL (9.4-12.4); Monocytes # (auto) 0.59 K/uL (0.11-0.59); Monocytes % (auto) 10.9 %; Neutrophils # (auto) 3.29 K/uL (1.40-6.50); Neutrophils % (auto) 60.8 %; Platelet Count 149 K/uL (130-400); RDW Coefficient of Variation 14.4 % (11.5-14.5); RDW Standard Deviation 45.1 fL (36.4-46.3); Red Blood Count 4.54 M/uL (4.70-6.10); White Blood Count 5.41 K/ul (4.8-10.8)
[2023-09-14 06:10] LABS: Calcium 8.6 mg/dl (8.6-10.3); Potassium 3.7 mmol/L (3.5-5.1)
[2023-09-14 06:19] LABS: BUN Creatinine Ratio 18.2 (10-20); Creatinine Clr Calc Pharmacy 65.6 ml/min; Est GFR (Non-African American) 44.9 ml/min
--- NOTE | 2023-09-14 06:42 | Hospitalist Progress Note ---
Date of Service September 14, 2023 Assessment & Plan (1) Failure to thrive in adult: (2) Chronic wound: (3) Bilateral leg pain: (4) Ambulatory dysfunction: (5) PAD (peripheral artery disease): (6) Uncontrolled hypertension: (7) DM2 (diabetes mellitus, type 2): (8) History of CVA (cerebrovascular accident): (9) Elevated troponin I level: (10) PVD (peripheral vascular disease): Plan Pt is a 63 yo male with a past medical history of DMT2, HLD< ambulatory dysfunction, chronic ankle wounds with extensive PAD, hx CVA, HTN and idiopathic polyneuropathy who presents to the hospital on 09/11 for placement and chronic ankle wounds. #Chronic ankle wounds #Bilateral foot pain Patient has been had bilateral lower extremity wounds for years with previous debridement See images and physical exam for further details Is being followed by the wound care center Wounds do not appear infected today, will consult wound care nurse for further monitoring and treatment Continue daily aspirin due to significant peripheral arterial disease - will use ibuprofen cautiously with elevated Cr since pt states this is what helps his pain the most that he takes at home - today will start pregabalin 100 mg BID, monitor intake and output as pt reports previously this caused urinary frequency #Failure to thrive in adult #Ambulatory dysfunction Presented to the ED today with his brother due to needing placement as he has no safe place to live at this time Patient had been sleeping on his brothers recliner, however, this has not been a permanent option Patient has multiple poorly controlled chronic medical conditions causing the majority of his current disabilities, however, his medical noncompliance and distrust of the medical system is preventing adequate treatment Patient's ambulatory dysfunction is likely multifactorial including multiple chronic lower extremity wounds due to his severe and untreated peripheral arterial disease, and severe peripheral neuropathy from uncontrolled DM type II Patient is interested in being evaluated by PT/OT with plans for placement on discharge. His goal is to eventually go back to [place], but he needs to regain strength before this can be done - PT/OT consulted; recommend rehab but pt likely to be denied due to high functioning status #First degree heart block #Mobitz type 1 - noted on telemetry - cardiology consulted; no further recommendations #Uncontrolled hypertension Blood pressure overnight 210-230s systolic/ 110-120s diastolic, states at home it runs 190s systolic - denies any current symptoms of headache, chest pain, SOB, vision changes See cardiology note from 08/17/2023 for further details as Dr. Alvarez had a detailed discussion with the patient about recommendations and eventually had to settle on starting the patient on losartan and every other day minoxidil as this is what the patient was willing to take - overnight declined IV BP therapy and voiced understanding of risk of IN/CVA with persistent BP, this morning was amendable to try IV therapy but gradually - trialed 15 mg hydralazine 09/12 but worsened pts foot pain and pt would rather focus on tx of foot pain he came in with than his asymptomatic HTN - overall more permissible overnight and this morning, will continue to monitor, consider isosorbide or HCTZ if persistently elevated #Elevated troponin I level Initial high-sensitivity troponin level elevated at 51, repeat 59.9 Patient denies any chest discomfort today He does have a wide QRS rhythm today compared to previous normal sinus rhythm After further discussions with the patient, he is fine with taking aspirin today and moving forward He added that he took 2, 81 mg aspirins prior to arrival, and is in agreement with taking an additional 2 now for a total of 324 mg full dose aspirin with his elevated troponin I explained that the aspirin can also help with his severe peripheral arterial disease - suspect this is secondary to demand ischemia #PAD (peripheral artery disease) See patient's chart and recent wound care/orthopedic notes regarding documentation of his severe peripheral arterial disease and patient's disinterest in medical management No signs of acute infection at this time with his chronic wounds, we will consult wound care nurse for further treatment Will start heel precautions, will defer to wound care nurse for topical treatments at this time Patient currently refusing statin despite discussions of further complications for ongoing noncompliance #DMT2 (diabetes mellitus, type 2) Glucose was 201 on arrival, anion gap and bicarb are within normal limits Patient currently refusing insulin and oral medication for glycemic control Expressed understanding of risks of untreated hyperglycemia up to and including For now we will monitor BSG on daily BMP, will start heart healthy/DM type II diet DVT ppx: SQ Lovenox as bilateral SCDs and/or NORA stockings will likely be too painful for the patient with his chronic lower extremity wounds Admission and Anticipated Discharge Date Admission Date: September 12, 2023 Supervising Physician Co-Signing Physician Notes I personally examined the patient and verified all sandoval points of history and exam, discussed case, and agree with decision making with Dr Pedroza Would like something better and more lasting for his foot pain and ibuprofen. I discussed that I agreewould much prefer to not have him on chronic NSAIDs due to CKD, and we had discussed yesterday that NSAIDs would really be a very temporary measure given long-term risks. In discussion of options, he notes that he failed gabapentinalthough it is unclear how long he was on it or at what dosing; he also related being on Lyrica in [place] and having to pee all the time. We discussed that was highly unlikely to be a side effect, and more likely to be correlation rather than causeaffect, and after discussion he was willing to try again. Discussed that the etiology of the neuropathy is probably far more "common things are common" than the esoteric tickborne or mycoplasma infections that he is suspecting. we also discussed utilizing something that would be likely more efficacious (and less damaging to granulation tissue) than the bleach spray he has been utilizing Vitals noted, in general he is awake and alert somewhat pressured speech. No physical distress. HEENT normocephalic atraumatic mucous membranes moist. Breathing unlabored no accessory muscle use good effort. Skin shows bilateral lower extremity ulcers, the one on his right heel/Achilles region currently dressed. No surrounding erythema, no tenderness. Foot painappears to have longstanding multifactorial neuropathyand this appears to be predominantly related to that. willing to give trial of pregabalin. Discussed that it is not impossible he could have polyuria again, but it seems fairly unlikelyand more likely that this was correlation not cause/effect. Further discussed that in the hospital we can titrate doses far more rapidly because the main risk would be sedation, and if he were to have sedation while he is here in the hospital, it is a safe environmentallowing us to dose escalate to far more efficacious doses far more quickly than can be safely done as an outpatient. He agrees to give it a try. Asked nursing to monitor urine output. Lower extremity woundshe treats with a Clorox spray and then dressings. Discussed with him that I suspect the Clorox spray probably does kill bacteria, but probably also was quite damaging to granulation tissueand therefore it leaves an open wound, and the exudative colonization is probably more skin gael than anything esoteric. He at least expresses a willingness for wound to see him, I reached out again to let them know, and hopefully he will allow them to do true wound care. 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 Will give trial to long-acting nitrates as it is possible he will allow this. Thus far seems to be tolerating okay and blood pressures have shown some improvement DVT prophylaxisLovenox dispositionnot certain if he will be able to return to the home he was livingit sounds like this may not be a feasible living situation anymore. PT/OT eval and treat, case management input. Also not entirely clear to me why he seeks care from conventional medical sources only to decline all of that care and expels very alternative strategies that he would prefer. Given that he seems to prefer these alternative strategies, it is not clear to me why he continues to see conventional sources of care frequently only to decline the care that is offered. we discussed this quite bluntly todayI discussed that if he wanted to dictate his care (especially into esoteric andersen that are not likely to be plausible) I would not really be able to help himand that if he wanted my help, he needed to allow us to be able to do our job taking care of him. I discussed that we do not really need to get into strange and esoteric explanations for his symptoms whenever it appears that fairly common processes (peripheral arterial disease, chronic multifactorial neuropathy, etc.) appear to be at play Subjective Pt is a 63 yo male with a past medical history of DMT2, HLD< ambulatory dysfunction, chronic ankle wounds with extensive PAD, hx CVA, HTN and idiopathic polyneuropathy who presents to the hospital on 09/11 for placement and chronic ankle wounds. Today, patient states his foot pain has improved from post-hydralazine pain levels. He states his baseline foot pain levels are around 4-5/10 and today he is at a 4/10 pain in both his feet. He states he believes his foot pain is related to mycoplasma and chronic lyme but while amoxicillin previously helped with pain, he took another course before and it did not help. He states his biggest concern is his foot pain that limits his mobility because of the discomfort. He denies chest pain, shortness of breath, or nausea or vomiting. He states that after this hospital stay he would ideally go to rehab. When asked about his living situation, he states he has "very temporary" living arrangements at this time and is working on trying to figure out where he can go. Review of Systems Review of Systems: Per HPI. Physical Exam Physical Exam: General:Alert and oriented, no acute distress, HEENT: Normocephalic, moist oral mucosa, Cardio: Regular rate and regular rhythm, no murmur, Resp:Lungs clear to auscultation b/l, no wheezes or rhonchi, Skin: Warm, pink, dry, Ext: Feet both with weak dorsalis pedis pulses bilaterally with wounds on back of both ankles, swelling of feet distal to wounds noted Results & Data Results & Data Vital Signs (Past 12 Hours) Vital Signs Temp Pulse Pulse Resp BP Pulse Ox O2 Del Method 09/14/23 03:59 36.7 C 65 18 171/101 H 96 Room Air 09/13/23 23:00 62 09/13/23 22:44 36.4 C L 80 24 148/93 H 95 Room Air 09/13/23 19:23 36.4 C L 77 22 182/114 H 97 Room Air Resident Activity Tracking Resident Involvement: Resident Care Provided Care Provided: Adult Hospital Medicine
[2023-09-14] MEDS: PREGABALIN 100 MG CAP PO SCH (12:00)
--- NOTE | 2023-09-14 13:01 | Billing Data ---
Date of Service September 14, 2023 Coding Level of Care Code 29659 SUB INP/OBS CARE
[2023-09-14 17:47] LABS: A calco-baum cmplx NotReported Not Detected (NotDetected); Bact fragilis Not Reported Not Detected (NotDetected); Blood Culture Id Panel See PCR Comment (NotDetected); C auris Not Reported Not Detected (NotDetected); Calbicans Not Reported Not Detected (NotDetected); Candida glabrata Not Reported Not Detected (NotDetected); Candida krusei Not Reported Not Detected (NotDetected); Cneoformans/gatti Not Reported Not Detected (NotDetected); Cparapsilosis Not Reported Not Detected (NotDetected); E cloacae compx Not Reported Not Detected (NotDetected); Efaecalis Not Reported Not Detected (NotDetected); Efaecium Not Reported Not Detected (NotDetected); Enterobacterales Not Reported Not Detected (NotDetected); Escherichia coli Not Reported Not Detected (NotDetected); H influenzae Not Reported Not Detected (NotDetected); K aerogenes Not Reported Not Detected (NotDetected); Koxytoca Not Reported Not Detected (NotDetected); Kpneumoniae grp Not Reported Not Detected (NotDetected); Lmonocyt Not Reported Not Detected (NotDetected); N meningitidis Not Reported Not Detected (NotDetected); P aeruginosa Not Reported Not Detected (NotDetected); Proteus spp Not Reported Not Detected (NotDetected); Salmonella spp Not Reported Not Detected (NotDetected); Staph lugdunensis Not Reported Not Detected (NotDetected); Staph spp. Not Reported DETECTED (NotDetected); Staphaureus Not Reported Not Detected (NotDetected); Staphepi Not Reported Not Detected (NotDetected); Stenmaltophilia Not Reported Not Detected (NotDetected); Strep agal(GrpB) Not Reported Not Detected (NotDetected); Strep pneum Not Reported Not Detected (NotDetected); Strep pyog (GrpA) Not Reported Not Detected (NotDetected); Strep spp Not Reported Not Detected (NotDetected)
[2023-09-14 17:54] LABS: Staphylococcus spp. DETECTED (NotDetected)
--- NOTE | 2023-09-15 06:32 | Hospitalist Progress Note ---
Date of Service September 15, 2023 Assessment & Plan (1) Failure to thrive in adult: (2) Chronic wound: (3) Bilateral leg pain: (4) Ambulatory dysfunction: (5) PAD (peripheral artery disease): (6) Uncontrolled hypertension: (7) DM2 (diabetes mellitus, type 2): (8) History of CVA (cerebrovascular accident): (9) Elevated troponin I level: (10) PVD (peripheral vascular disease): Plan Pt is a 63 yo male with a past medical history of DMT2, HLD< ambulatory dysfunction, chronic ankle wounds with extensive PAD, hx CVA, HTN and idiopathic polyneuropathy who presents to the hospital on 09/11 for placement and chronic ankle wounds. 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 ibuprofen due to risk of kidney injury - continue pregabalin 100 mg BID, monitor intake and output as pt reports previously this caused urinary frequency #Failure to thrive in adult #Ambulatory dysfunction Presented to the ED today with his brother due to needing placement as he has no safe place to live at this time Patient had been sleeping on his brothers recliner, however, this has not been a permanent option Patient has multiple poorly controlled chronic medical conditions causing the majority of his current disabilities, however, his medical noncompliance and distrust of the medical system is preventing adequate treatment Patient's ambulatory dysfunction is likely multifactorial including multiple chronic lower extremity wounds due to his severe and untreated peripheral arterial disease, and severe peripheral neuropathy from uncontrolled DM type II Patient is interested in being evaluated by PT/OT with plans for placement on discharge. His goal is to eventually go back to [place], but he needs to regain strength before this can be done - PT/OT consulted; recommend rehab, pending #First degree heart block #Mobitz type 1 - noted on telemetry - cardiology consulted; no further recommendations #Uncontrolled hypertension Blood pressure overnight 210-230s systolic/ 110-120s diastolic, states at home it runs 190s systolic - denies any current symptoms of headache, chest pain, SOB, vision changes See cardiology note from 08/17/2023 for further details as Dr. Alvarez had a detailed discussion with the patient about recommendations and eventually had to settle on starting the patient on losartan and every other day minoxidil as this is what the patient was willing to take - overnight declined IV BP therapy and voiced understanding of risk of AK/CVA with persistent BP, this morning was amendable to try IV therapy but gradually - trialed 15 mg hydralazine 09/12 but worsened pts foot pain and pt would rather focus on tx of foot pain he came in with than his asymptomatic HTN - overall more permissible overnight and this morning, will continue to monitor, consider isosorbide or HCTZ if persistently elevated #Elevated troponin I level Initial high-sensitivity troponin level elevated at 51, repeat 59.9 Patient denies any chest discomfort today He does have a wide QRS rhythm today compared to previous normal sinus rhythm After further discussions with the patient, he is fine with taking aspirin today and moving forward He added that he took 2, 81 mg aspirins prior to arrival, and is in agreement with taking an additional 2 now for a total of 324 mg full dose aspirin with his elevated troponin I explained that the aspirin can also help with his severe peripheral arterial disease - suspect this is secondary to demand ischemia #PAD (peripheral artery disease) See patient's chart and recent wound care/orthopedic notes regarding documentation of his severe peripheral arterial disease and patient's disinterest in medical management No signs of acute infection at this time with his chronic wounds, we will consult wound care nurse for further treatment Will start heel precautions, will defer to wound care nurse for topical treatments at this time Patient currently refusing statin despite discussions of further complications for ongoing noncompliance #DMT2 (diabetes mellitus, type 2) Glucose was 201 on arrival, anion gap and bicarb are within normal limits Patient currently refusing insulin and oral medication for glycemic control Expressed understanding of risks of untreated hyperglycemia up to and including For now we will monitor BSG on daily BMP, will start heart healthy/DM type II diet DVT ppx: SQ Lovenox as bilateral SCDs and/or NORA stockings will likely be too painful for the patient with his chronic lower extremity wounds Admission and Anticipated Discharge Date Admission Date: September 12, 2023 Supervising Physician Co-Signing Physician Notes I personally examined the patient and verified all sandoval points of history and exam, discussed case, and agree with decision making with Dr Pedroza Foot pain improving. Able to walk better. Not sure if he will be able to get back home with his brother. Vitals noted, in general he is awake and alert somewhat pressured speech. No physical distress. HEENT normocephalic atraumatic mucous membranes moist. Breathing unlabored no accessory muscle use good effort. Skin shows bilateral lower extremity ulcers, the one on his right heel/Achilles region currently dressed. No surrounding erythema, no tenderness. Foot painappears to have longstanding multifactorial neuropathyand this appears to be predominantly related to that. Seems to be improving on trial of pregabalin. Is a little bit groggy, but certainly still completely coherentand the grogginess is nonspecificprobably does relate a bit to starting at the bit of higher dose, but also could just as easily be from the poor sleep, and during hospitalizations. Continue current care and follow. Lower extremity woundshe treats with a Clorox spray and then dressings. Discussed with him that I suspect the Clorox spray probably does kill bacteria, but probably also was quite damaging to granulation tissueand therefore it leaves an open wound, and the exudative colonization is probably more skin gael than anything esoteric. He at least expresses a willingness for wound to see him, I reached out again to let them know, and hopefully he will allow them to do true wound care. 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 tolerating long-acting nitrates well, blood pressure overall somewhat better CKD stage IIIprobably largely hypertensive nephropathy, also worry a bit about his chronic NSAID usegiven that we are starting to make improvement in his neuropathic pain with pregabalin, we discussed NSAID cessation, and he is okay with this. Continue to follow. DVT prophylaxisLovenox disposition Stable for discharge, ideally he would go to rehab for now and then home, awaiting to see if this will be feasible. If not we need to make sure he has a safe living situation at discharge. Subjective Pt is a 63 yo male with a past medical history of DMT2, HLD< ambulatory dysfunction, chronic ankle wounds with extensive PAD, hx CVA, HTN and idiopathic polyneuropathy who presents to the hospital on 09/11 for placement and chronic ankle wounds. Today, pt states that he is still having pain in his feet but his baseline 4/10 pain/burning is now a 2-3/10. It is still worse when he walks around but he states baseline it did improve. He questioned this morning if B vitamins could be contributing to his neuropathy or if deficiency may be impeding healing of his neuropathy. Discussed with him that his B12 was checked months ago and was normal but we can start a B complex here if he would like. Other than that, he just notes frustration with the medical system. Overall feels his pain has improved on just 2 doses of Lyrica so far and is hopeful pain may continue to improve. When asked again about living situation he states he may be able to stay with his brother again but knows it would be very temporary. Review of Systems Review of Systems: Per HPI. Physical Exam Physical Exam: General:Alert and oriented, no acute distress, HEENT: Normocephalic, moist oral mucosa, Cardio: Regular rate and regular rhythm, Resp:No increased resp effort, no resp distress Skin: Warm, pink, dry, Results & Data Results & Data Vital Signs (Past 12 Hours) Vital Signs Temp Pulse Pulse Resp BP Pulse Ox O2 Del Method 09/15/23 02:32 36.3 C L 56 L 20 175/85 H 97 Room Air 09/14/23 22:20 36.7 C 66 20 176/94 H 92 Room Air 09/14/23 22:04 54 L 09/14/23 19:15 Room Air 09/14/23 19:15 36.3 C L 61 20 200/102 H 99 Room Air Resident Activity Tracking Resident Involvement: Resident Care Provided Care Provided: Adult Hospital Medicine
[2023-09-15 06:42] LABS: Basophils # (auto) 0.04 K/uL (0.00-0.20); Basophils % (auto) 0.6 %; Eosinophils % (auto) 2.9 %; Hematocrit (blood only) 37.3 % (42.0-52.0); Hemoglobin 12.6 g/dl (14.0-18.0); Immature Granulocytes # (auto) 0.02 K/uL (0.01-0.20); Immature Granulocytes % (auto) 0.3 %; Lymphocytes # (auto) 1.32 K/uL (1.20-3.40); Lymphocytes % (auto) 18.9 %; Mean Corpuscular Hemoglobin 29.2 pg (25.0-34.0); Mean Corpuscular Hgb Conc 33.8 g/dL (32.0-36.0); Mean Corpuscular Volume 86.3 fL (80.0-100.0); Mean Platelet Volume 11.5 fL (9.4-12.4); Monocytes # (auto) 0.98 K/uL (0.11-0.59); Neutrophils # (auto) 4.44 K/uL (1.40-6.50); Neutrophils % (auto) 63.3 %; Platelet Count 138 K/uL (130-400); RDW Coefficient of Variation 14.4 % (11.5-14.5); RDW Standard Deviation 45.4 fL (36.4-46.3); Red Blood Count 4.32 M/uL (4.70-6.10)
[2023-09-15 07:00] LABS: BUN Creatinine Ratio 15.6 (10-20); Calcium 8.5 mg/dl (8.6-10.3); Est GFR (African American) 45.1 ml/min; Est GFR (Non-African American) 38.9 ml/min; Potassium 4.1 mmol/L (3.5-5.1)
[2023-09-15] MEDS ORDERED: IBUPROFEN 200 MG TAB PO PRN ×2 (07:26→09:54)
[2023-09-15] MEDS: VITAMIN B COMPLEX TAB PO SCH (10:44)
--- NOTE | 2023-09-15 12:51 | Billing Data ---
Date of Service September 15, 2023 Coding Level of Care Code 15483 SUB INP/OBS CARE
--- NOTE | 2023-09-15 16:34 | Discharge Summary ---
Date of Service September 15, 2023 Admission HPI Per Admitting Provider Malcolm is a 63-year-old male with a past medical history significant for Therapeutic nihilism/medical skepticism causing significant barrier to adequate care, chronic bilateral posterior ankle wounds, DM type II with peripheral neuropathy, previous CVA, peripheral arterial disease, hypertension, who presented to the [facility] ED on 09/12/2023 accompanied by his brother due to complaints of ongoing ambulatory dysfunction due to his baseline chronic bilateral lower extremity wounds and need for placement. Per review of the patient's chart, there is a consistent history of the patient refusing routine, guideline based treatment for his chronic medical conditions including uncontrolled hypertension, DM type II, peripheral arterial disease, dyslipidemia. Documented multiple times in various provider notes that the patient is often convinced that all of his symptoms caused by his chronic medical conditions are actually due to a chronic tickborne illness such as Lyme. On arrival to the ED he was noted to be hypertensive at 201/128, tachycardic at 114, but otherwise stable. Labs were significant for a lymphocyte count of 1.00, ESR 25, initial high-sensitivity troponin of 51. Chest x-ray was read as negative for acute findings. EKG shows a wide QRS pattern with bifascicular block which has replaced normal sinus rhythm. Prior to admission the patient was given 5 mg p.o. oxycodone. Patient was sitting in bed in no acute distress at the time of exam with his brother bedside, history was obtained from both. They confirm the patient's long history of medical noncompliance and lack of trust in most medications. The patient explains to me he feels as though the body is "1 system", and is able to heal itself. He feels as though many medications he has been placed on previously have not worked for him. For example he brings up an experience in [place] where he was admitted for significantly elevated hypertension with systolic blood pressure reportedly in the 280s. He states that they dropped his blood pressure too quickly which caused a mini stroke. I explained to him that while this is a potential risk of dropping someone's blood pressure too quickly, uncontrolled blood pressure also increases his risks of stroke, heart attack, renal failure, worsening vascular disease and heart failure, and a host of other life-threatening issues. I explained that when chronic medical conditions are left untreated for some time it can increase the risks of side effects when we finally do start to treat them. History is difficult to obtain from the patient at times as he will often cut the provider off intake the conversation in a different direction. I explained to the patient and his brother that we can admit him with plans for placement. However, I asked that he work with us as a team to come to [facility] and his treatment such as his hypertension while he is here. He expressed understanding and said he is willing to work with us but will want to have discussions prior to being started on any new medications. I asked him to repeat back to me my concerns for his untreated medical conditions such as his hypertension, peripheral arterial disease, diabetes mellitus. He was able to articulate that left untreated his chronic medical conditions could cause stroke, heart attack, worsening kidney disease, worsening heart failure, up to including . We did discuss CODE STATUS, he wishes to be a full code and for his brother to make medical decisions for him if he cannot make them himself. Please see recent outpatient notes from cardiology, neurology, wound care, orthopedics, and podiatry within the past year for further documentation and summary of the patient's chronic medical conditions and his typical refusal of research back, guideline based treatment. Please refer to Dr. Shields's attestation for any changes to the treatment plan Admission Exam Per Admitting Provider Physical Exam: General: In no acute distress, stated age, chronically ill-appearing, poor hygiene HEENT: Normocephalic, atraumatic, no scleral icterus, pupils around round, symmetrical, and reactive to light, moist mucus membranes, trachea midline, no thyromegaly Chest/Pulm: No respiratory distress, symmetrical chest expansion, clear breath sounds throughout Cardiac: RRR, no murmurs noted Abdomen: Negative for ascites and bruising, normoactive bowel sounds, soft, non- tender to palpation throughout Musculoskeletal: No acute trauma on exam, see pictures below of [facility] wounds/scars Extremities: Radial, dorsalis pedis, and posterior tibial pulses are intact and symmetrical, no edema noted in the [facility]'s Skin: see pictures below of [facility] wounds/scars Neuro: Alert and oriented to person, place, month, year, and president, no focal defects, significant neuropathy in the [facility]'s Psych: No acute distress, polite, often fluctuating mental focus, calm and cooperative during the exam Principal Diagnosis Peripheral neuropathy Discharge Exam General:Alert and oriented, no acute distress, HEENT: Normocephalic, moist oral mucosa, Cardio: Regular rate and regular rhythm, Resp:No increased resp effort, no resp distress Skin: Warm, pink, dry, Discharge Data Allergies Allergy/AdvReac Type Severity Reaction Status Date / Time doxycycline Allergy Mild URTICARIA Verified 09/12/23 11:48 Consultations 09/12/23 12:04 ED Decision to Admit Stat 09/13/23 10:56 Consult Cardiology Routine Hospital Course (1) Failure to thrive in adult: (2) Chronic wound: (3) Bilateral leg pain: (4) Ambulatory dysfunction: (5) PAD (peripheral artery disease): (6) Uncontrolled hypertension: (7) DM2 (diabetes mellitus, type 2): (8) History of CVA (cerebrovascular accident): (9) Elevated troponin I level: (10) PVD (peripheral vascular disease): Plan Pt is a 63 yo male with a past medical history of DMT2, HLD< ambulatory dysfunction, chronic ankle wounds with extensive PAD, hx CVA, HTN and idiopathic polyneuropathy who presents to the hospital on 09/11 for placement and chronic ankle wounds. #Chronic ankle wounds #Bilateral foot pain Patient has been had bilateral lower extremity wounds for years with previous debridement Is being followed by the wound care center, wounds do not appear infected this admission recommend him to continue daily aspirin due to significant peripheral arterial disease - advised him to not take ibuprofen anymore due to impaired kidney function - started him yesterday on lyrica with some relief today of his foot pain, continue pregabalin 100 mg BID #Failure to thrive in adult #Ambulatory dysfunction Presented to the ED with his brother due to needing placement as he has no safe place to live at this time Patient had been sleeping on his brothers recliner, however, this has not been a permanent option Patient has multiple poorly controlled chronic medical conditions causing the majority of his current disabilities, however, his medical noncompliance and di strust of the medical system is preventing adequate treatment Patient's ambulatory dysfunction is likely multifactorial including multiple chronic lower extremity wounds due to his severe and untreated peripheral arterial disease, and severe peripheral neuropathy from uncontrolled DM type II Patient was evaluated by PT/OT who recommended rehab but insurance denied rehab for him, his brother and [id number]-wid would like to take him home today before the busy holiday tomorrow when it would be much harder, given contacts by case management for personal care homes, advised pt to continue to call them for a more permanent living solution if unable to stay with family long-term #First degree heart block #[place]ides[place] type 1 - noted on telemetry - cardiology consulted; no further recommendations #Uncontrolled hypertension Blood pressure overnight 210-230s systolic/ 110-120s diastolic, states at home it runs 190s systolic - denies any current symptoms of headache, chest pain, SOB, vision changes See cardiology note from 08/17/2023 for further details as Dr. Alvarez had a detailed discussion with the patient about recommendations and eventually had to settle on starting the patient on losartan and every other day minoxidil as this is what the patient was willing to take - overnight after admission declined IV BP therapy and voiced understanding of risk of TN/CVA with persistent BP - trialed 15 mg hydralazine 09/12 but worsened pts foot pain and pt would rather focus on tx of foot pain he came in with than his asymptomatic HTN - overall more permissible overnight and this morning, will continue to monitor, consider isosorbide or HCTZ if persistently elevated - ultimately he was agreeable to imdur 30 mg BID for his pressure and did get modest improvement in his pressures on this dosing #Elevated troponin I level Initial high-sensitivity troponin level elevated at 51, repeat 59.9 Patient denies any chest discomfort today After further discussions with the patient, he is fine with taking aspirin daily - suspect this is secondary to demand ischemia #PAD (peripheral artery disease) See patient's chart and recent wound care/orthopedic notes regarding documentation of his severe peripheral arterial disease and patient's disinterest in medical management No signs of acute infection at this time with his chronic wounds, we will consult wound care nurse for further treatment Will start heel precautions, will defer to wound care nurse for topical treatments at this time Patient currently refusing statin despite discussions of further complications for ongoing noncompliance Total Time Total Time Spent Total Time Spent (In Minutes): As per attending attestation. Discharge Plan Discharge Items Patient Disposition: Home - Self-Care Reason For Visit: FAILURE TO THRIVE, HTN, CHRONIC LE WOUNDS Discharge Diagnosis: Peripheral neuropathy Condition on Discharge: Good Activity: Resume your previous activity Non-emergency contact: Primary Care Provider Call non-emergency contact if: you have any medication questions Follow-up/Referrals: Jason Zendejas MD [Primary Care Provider] - Diet: Carb Consistent or DM2 and Low Sodium (2gm) Addtl Attending Provider Instructions: You were admitted to the hospital with worsened chronic foot pain and uncontrolled blood pressure. During your stay here, we discussed the cause of your foot pain being due to peripheral neuropathy, meaning the pain comes from damage of the nerves. Regardless of the cause of neuropathy, once nerves are damaged, the treatment is to treat the uncomfortable symptoms associated with nerve damage, including burning and pain. As we talked about, we cannot undo the neuropathy, so you may always have some level of pain or numbness in your feet, but with starting a medication designed to address nerve pain like Lyrica (pregabalin) we can aim to make walking more comfortable for you so you can continue to keep active. You were also admitted for high blood pressures. While you remained totally asymptomatic, blood pressures over 180/110 can cause damage to vessels, especially smaller vessels of the body like those in the brain and those in the kidneys. This constant excessive pressure puts you at risk for having a heart attack or stroke as well. Ideally your blood pressure would be around 140/90 or less, but given your highly elevated pressures here, this should be done gradually and the current goal should be at least less than 180/110. We added a medication called imdur that has helped bring your blood pressure down some. You should also get blood work for a metabolic panel to check your electrolytes and kidney function this Wednesday, 09/16. You can get this lab at [facility] or at the local [facility] lab on [facility]. We have sent a script for your pregabalin (lyrica) and imdur (isosorbide mononitrate) to your pharmacy. Please continue to take these when you leave the hospital. The lyrica will continue to improve the nerve pain for the next few weeks as it builds up in your system. Your first dose of lyrica would be tonight around 8 or 9pm, your next dose of imdur would be tonight around 8 or 9pm also. Then, you should take them once in the morning and once at night every day. We also sent a new script for your losartan, as it is recommended you take 100 mg a day instead of the 50 mg you were on previously to further help with blood pressure control. We recommend you no longer take ibuprofen for pain, as your kidneys do not work as well as they once use to and ibuprofen can cause further kidney damage. Please plan to follow-up with your primary care physician by the end of this week. Pending Studies at Discharge: No Stand-Alone Forms: My [facility] Medications and DC Order Prescriptions: New losartan 50 mg Tablet 100 mg PO DAILY Qty: 60 1RF isosorbide mononitrate 30 mg Tablet Extended Release 24 Hr 30 mg PO BID Qty: 60 1RF Continued Danii Supplement 1 cap PO DAILY Rx Instructions: otc, as directed. minoxidil 2.5 mg tablet 2.5 mg PO Q OTHER DAY nystatin [Nyamyc] 100,000 unit/gram powder 1 applic TOPICAL DAILY PRN (Reason: flare under skin folds) Discontinued losartan 50 mg tablet 50 mg PO DAILY Krames/Other Patient Handouts: Nutrition for Wound Healing Admission Data Admit Date/Time: 09/12/23 12:55 Attending Provider: Abraham Marti Admit Provider: Tosha Shields Primary Care Provider: Jason Zendejas Other Providers: Tosha Shields; Steve Doran; James Alvarez; Iván Burnette; Umer Killian; Kevin Sandhu; Joseluis Becker Jr; Zay Garcia; Christi Navarro; Diana Ferris; Jason Sequeira; Jason Peña; Jose Martinez; Cierra Coelho; Yomi Jaramillo; Анна Salmon; Juan Gomez; Luis Campa; Faustino Hilario; Murray Ortiz; [facility]
--- NOTE | 2023-09-16 06:40 | Discharge Summary ---
Date of Service September 16, 2023 Discharge Data Allergies Allergy/AdvReac Type Severity Reaction Status Date / Time doxycycline Allergy Mild URTICARIA Verified 09/12/23 11:48 Consultations 09/12/23 12:04 ED Decision to Admit Stat 09/13/23 10:56 Consult Cardiology Routine Hospital Course (1) Failure to thrive in adult: (2) Chronic wound: (3) Bilateral leg pain: (4) Ambulatory dysfunction: (5) PAD (peripheral artery disease): (6) Uncontrolled hypertension: (7) DM2 (diabetes mellitus, type 2): (8) History of CVA (cerebrovascular accident): (9) Elevated troponin I level: (10) PVD (peripheral vascular disease): Discharge Plan Discharge Items Patient Disposition: Home - Self-Care Reason For Visit: FAILURE TO THRIVE, HTN, CHRONIC LE WOUNDS Discharge Diagnosis: Peripheral neuropathy Condition on Discharge: Good Activity: Resume your previous activity Non-emergency contact: Primary Care Provider Call non-emergency contact if: you have any medication questions Follow-up/Referrals: Jason Zendejas MD [Primary Care Provider] - Diet: Carb Consistent or DM2 and Low Sodium (2gm) Ambulatory Orders: Basic Metabolic Panel (Routine) Timeframe: 1 Day Location: Determined by Patient Ordered By: Mickie Marroquin Attending Provider Instructions: You were admitted to the hospital with worsened chronic foot pain and uncontrolled blood pressure. During your stay here, we discussed the cause of your foot pain being due to peripheral neuropathy, meaning the pain comes from damage of the nerves. Regardless of the cause of neuropathy, once nerves are damaged, the treatment is to treat the uncomfortable symptoms associated with nerve damage, including burning and pain. As we talked about, we cannot undo the neuropathy, so you may always have some level of pain or numbness in your feet, but with starting a medication designed to address nerve pain like Lyrica (pregabalin) we can aim to make walking more comfortable for you so you can continue to keep active. You were also admitted for high blood pressures. While you remained totally asymptomatic, blood pressures over 180/110 can cause damage to vessels, especially smaller vessels of the body like those in the brain and those in the kidneys. This constant excessive pressure puts you at risk for having a heart attack or stroke as well. Ideally your blood pressure would be around 140/90 or less, but given your highly elevated pressures here, this should be done gradually and the current goal should be at least less than 180/110. We added a medication called imdur that has helped bring your blood pressure down some. You should also get blood work for a metabolic panel to check your electrolytes and kidney function this Wednesday, 09/16. You can get this lab at [facility] or at the local [facility] lab on [address]. We have sent a script for your pregabalin (lyrica) and imdur (isosorbide mononitrate) to your pharmacy. Please continue to take these when you leave the hospital. The lyrica will continue to improve the nerve pain for the next few weeks as it builds up in your system. Your first dose of lyrica would be tonight around 8 or 9pm, your next dose of imdur would be tonight around 8 or 9pm also. Then, you should take them once in the morning and once at night every day. We also sent a new script for your losartan, as it is recommended you take 100 mg a day instead of the 50 mg you were on previously to further help with blood pressure control. We recommend you no longer take ibuprofen for pain, as your kidneys do not work as well as they once use to and ibuprofen can cause further kidney damage. Please plan to follow-up with your primary care physician by the end of this we ek. It appears you have two appointments at our [facility] office on Saturday 09/16. You have an appointment at 9:40 am with Janessa Nick PA-C and at 8:40 am with one of the residents. Please only attend ONE of these appointments, you can pick which appointment based on which time works best for you, but ideally you should follow-up with a provider you have seen before. Pending Studies at Discharge: No Stand-Alone Forms: My [facility] Medications and DC Order Prescriptions: New losartan 50 mg Tablet 100 mg PO DAILY Qty: 60 1RF isosorbide mononitrate 30 mg Tablet Extended Release 24 Hr 30 mg PO BID Qty: 60 1RF pregabalin 100 mg capsule 100 mg PO BID Qty: 60 0RF Continued Danii Supplement 1 cap PO DAILY Rx Instructions: otc, as directed. minoxidil 2.5 mg tablet 2.5 mg PO Q OTHER DAY nystatin [[facility]] 100,000 unit/gram powder 1 applic TOPICAL DAILY PRN (Reason: flare under skin folds) Discontinued losartan 50 mg tablet 50 mg PO DAILY Krames/Other Patient Handouts: Nutrition for Wound Healing Admission Data Admit Date/Time: 09/12/23 12:55 Attending Provider: Abraham Marti Admit Provider: Tosha Shields Primary Care Provider: Jason Zendejas Other Providers: Tosha Shields; Steve Doran; James Alvarez; Iván Burnette; Umer Killian; Kevin Sandhu; Joseluis Becker Jr; Zay Blanco; Christi Navarro; Diana Ferris; Jason Sequeira; Jason Peña; Jose Martinez; Cierra Coelho; Yomi Jaramillo; Анна Salmon; Juan Gomez.; Luis Campa; Faustino Hilario; Murray Ortiz; [facility]
[2023-09-16 07:10] LABS: Anion Gap 7 (3-11); Calcium 8.4 mg/dl (8.6-10.3); Carbon Dioxide 23 mmol/L (21-32); Chloride 108 mmol/L (98-107); Sodium 138 mmol/L (136-145)
[2023-09-16 07:21] LABS: BUN Creatinine Ratio 17.4 (10-20); Blood Urea Nitrogen 25 mg/dl (6-23); Creatinine Clr Calc Pharmacy 72.3 ml/min; Est GFR (African American) 58.6 ml/min; Est GFR (Non-African American) 50.6 ml/min; Glucose 130 mg/dl (70-99(Fasting))
--- NOTE | 2023-09-16 09:44 | Hospitalist Progress Note ---
Date of Service September 16, 2023 Assessment & Plan (1) Failure to thrive in adult: (2) Chronic wound: (3) Bilateral leg pain: (4) Ambulatory dysfunction: (5) PAD (peripheral artery disease): (6) Uncontrolled hypertension: (7) DM2 (diabetes mellitus, type 2): (8) History of CVA (cerebrovascular accident): (9) Elevated troponin I level: (10) PVD (peripheral vascular disease): Plan Pt is a 63 yo male with a past medical history of DMT2, HLD< ambulatory dysfunction, chronic ankle wounds with extensive PAD, hx CVA, HTN and idiopathic polyneuropathy who presents to the hospital on 09/11 for placement and chronic ankle wounds. #Chronic ankle wounds #Bilateral foot pain Patient has been had bilateral lower extremity wounds for years with previous debridement See images and physical exam for further details Is being followed by the wound care center Wounds do not appear infected today, will consult wound care nurse for further monitoring and treatment Continue daily aspirin due to significant peripheral arterial disease - will stop ibuprofen today as intermediate frame tender it would be best if he were to avoid ibuprofen due to risk of kidney injury - continue pregabalin 100 mg but HS instead of BID as he felt too groggy on BID dosing, monitor intake and output as pt reports previously this caused urinary frequency #Failure to thrive in adult #Ambulatory dysfunction Presented to the ED today with his brother due to needing placement as he has no safe place to live at this time Patient had been sleeping on his brothers recliner, however, this has not been a permanent option Patient has multiple poorly controlled chronic medical conditions causing the majority of his current disabilities, however, his medical noncompliance and distrust of the medical system is preventing adequate treatment Patient's ambulatory dysfunction is likely multifactorial including multiple chronic lower extremity wounds due to his severe and untreated peripheral arterial disease, and severe peripheral neuropathy from uncontrolled DM type II Patient is interested in being evaluated by PT/OT with plans for placement on discharge. His goal is to eventually go back to [place], but he needs to regain strength before this can be done - PT/OT consulted; recommend rehab, denied from rehab #First degree heart block #Mobitz type 1 - noted on telemetry - cardiology consulted; no further recommendations #Uncontrolled hypertension Blood pressure overnight 210-230s systolic/ 110-120s diastolic, states at home it runs 190s systolic - denies any current symptoms of headache, chest pain, SOB, vision changes See cardiology note from 08/17/[address]23 for further details as Dr. Alvarez had a detailed discussion with the patient about recommendations and eventually had to settle on starting the patient on losartan and every other day minoxidil as this is what the patient was willing to take - overnight declined IV BP therapy and voiced understanding of risk of WA/CVA with persistent BP, this morning was amendable to try IV therapy but gradually - trialed 15 mg hydralazine 09/12 but worsened pts foot pain and pt would rather focus on tx of foot pain he came in with than his asymptomatic HTN - overall more permissible, will continue to monitor, imdur added to his regime for him to continue at home #Elevated troponin I level Initial high-sensitivity troponin level elevated at 51, repeat 59.9 Patient denies any chest discomfort today He does have a wide QRS rhythm today compared to previous normal sinus rhythm After further discussions with the patient, he is fine with taking aspirin today and moving forward He added that he took 2, 81 mg aspirins prior to arrival, and is in agreement with taking an additional 2 now for a total of 324 mg full dose aspirin with his elevated troponin I explained that the aspirin can also help with his severe peripheral arterial disease - suspect this is secondary to demand ischemia #PAD (peripheral artery disease) See patient's chart and recent wound care/orthopedic notes regarding documentation of his severe peripheral arterial disease and patient's disinterest in medical management No signs of acute infection at this time with his chronic wounds, we will consult wound care nurse for further treatment Will start heel precautions, will defer to wound care nurse for topical treatments at this time Patient currently refusing statin despite discussions of further complications for ongoing noncompliance #DMT2 (diabetes mellitus, type 2) Glucose was 201 on arrival, anion gap and bicarb are within normal limits Patient currently refusing insulin and oral medication for glycemic control Expressed understanding of risks of untreated hyperglycemia up to and including For now we will monitor BSG on daily BMP, will start heart healthy/DM type II diet DVT ppx: SQ Lovenox as bilateral SCDs and/or NORA stockings will likely be too painful for the patient with his chronic lower extremity wounds Admission and Anticipated Discharge Date Admission Date: September 12, 2023 Supervising Physician Co-Signing Physician Notes I personally examined the patient and verified all sandoval points of history and exam, discussed case, and agree with decision making with Dr Pedroza Foot pain tolerable. Feels a little too groggy and unsteady on current dosing of Lyrica. Extensive discussion on chronic disease management, hypertension management, microvascular disease, tickborne illnesses and atypical infections and how they can be subtle to diagnose but generally are excessively easy to treat. Etc. Vitals noted, in general he is awake and alert somewhat pressured speech. No physical distress. HEENT normocephalic atraumatic mucous membranes moist. Breathing unlabored no accessory muscle use good effort. Skin shows bilateral lower extremity ulcers, the one on his right heel/Achilles region currently dressed. No surrounding erythema, no tenderness. Foot painappears to have longstanding multifactorial neuropathyand this appears to be predominantly related to that. Seems to be improving on trial of pregabalin. Given that his grogginess is a bit excessive for him, will reduce the dose to 100 mg daily; safe/stable for home (brother able to get him tomorrow) and then will have close outpatient follow-up. Lower extremity woundshe treats with a Clorox spray and then dressings. Previously discussed with him that I suspect the Clorox spray probably does kill bacteria, but probably also was quite damaging to granulation tissueand therefore it leaves an open wound, and the exudative colonization is probably more skin gael than anything esoteric. 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 tolerating long-acting nitrates well, blood pressure overall somewhat better, would slowly titrate over time CKD stage IIIprobably largely hypertensive nephropathy, also worry a bit about his chronic NSAID usegiven that we are starting to make improvement in his neuropathic pain with pregabalin, we discussed NSAID cessation, and he is okay with this. Continue to follow. labs today better DVT prophylaxisLovenox disposition Stable for discharge, brother able to take him home tomorrow Subjective Pt is a 63 yo male with a past medical history of DMT2, HLD< ambulatory dysfunction, chronic ankle wounds with extensive PAD, hx CVA, HTN and idiopathic polyneuropathy who presents to the hospital on 09/11 for placement and chronic ankle wounds. Today, pt states his foot pain is about a 1/10 but since yesterday he has started to feel groggy and a bit unsteady on his feet. He states normal his walking is limited by pain but this morning is limited because he just feels a bit "out of sorts." When explained that Lyrica can make people somewhat drowsy, he states he feels like he may just be on too high of a dose but is agreeable to continuing at a lower dose. He states that because he feels a bit unsteady on his feet he would like to stay until tomorrow to ensure that improves prior to going back to his brothers, and he also states because of the holiday his brother cannot come get him today but would be able to pick him up tomorrow morning. Review of Systems Review of Systems: Per HPI. Physical Exam Physical Exam: General:Alert and oriented, no acute distress, HEENT: Normocephalic, moist oral mucosa, Cardio: Regular rate and rhythm Resp:No increased resp effort, no resp distress Skin: Warm, pink, dry, Results & Data Results & Data Vital Signs (Past 12 Hours) Vital Signs Temp Pulse Pulse Resp BP Pulse Ox O2 Del Method 09/16/23 07:45 36.4 C L 65 20 181/125 H 96 Room Air 09/16/23 02:48 36.6 C 64 21 181/90 H 94 Room Air 09/15/23 22:21 36.8 C 69 18 180/104 H 96 Room Air 09/15/23 21:54 62 Resident Activity Tracking Resident Involvement: Resident Care Provided Care Provided: Adult Hospital Medicine
--- NOTE | 2023-09-16 15:23 | Billing Data ---
Date of Service September 16, 2023 Coding Level of Care Code 07629 SUB INP/OBS CARE
[2023-09-16] MEDS: PREGABALIN 100 MG CAP PO SCH (20:21)
[2023-09-16] MEDS ORDERED: hydrALAZINE 10 MG TAB PO PRN (21:52)
[2023-09-17] MEDS: IBUPROFEN 200 MG TAB PO STA (01:38)
--- NOTE | 2023-09-17 06:59 | Discharge Summary ---
Date of Service September 17, 2023 Admission HPI Per Admitting Provider Malcolm is a 63-year-old male with a past medical history significant for Therapeutic nihilism/medical skepticism causing significant barrier to adequate care, chronic bilateral posterior ankle wounds, DM type II with peripheral neuropathy, previous CVA, peripheral arterial disease, hypertension, who presented to the [facility] ED on 09/12/2023 accompanied by his brother due to complaints of ongoing ambulatory dysfunction due to his baseline chronic bilateral lower extremity wounds and need for placement. Per review of the patient's chart, there is a consistent history of the patient refusing routine, guideline based treatment for his chronic medical conditions including uncontrolled hypertension, DM type II, peripheral arterial disease, dyslipidemia. Documented multiple times in various provider notes that the patient is often convinced that all of his symptoms caused by his chronic medical conditions are actually due to a chronic tickborne illness such as Lyme. On arrival to the ED he was noted to be hypertensive at 201/128, tachycardic at 114, but otherwise stable. Labs were significant for a lymphocyte count of 1.00, ESR 25, initial high-sensitivity troponin of 51. Chest x-ray was read as negative for acute findings. EKG shows a wide QRS pattern with bifascicular block which has replaced normal sinus rhythm. Prior to admission the patient was given 5 mg p.o. oxycodone. Patient was sitting in bed in no acute distress at the time of exam with his brother bedside, history was obtained from both. They confirm the patient's long history of medical noncompliance and lack of trust in most medications. The patient explains to me he feels as though the body is "1 system", and is able to heal itself. He feels as though many medications he has been placed on previously have not worked for him. For example he brings up an experience in [place] where he was admitted for significantly elevated hypertension with systolic blood pressure reportedly in the 280s. He states that they dropped his blood pressure too quickly which caused a mini stroke. I explained to him that while this is a potential risk of dropping someone's blood pressure too quickly, uncontrolled blood pressure also increases his risks of stroke, heart attack, renal failure, worsening vascular disease and heart failure, and a host of other life-threatening issues. I explained that when chronic medical conditions are left untreated for some time it can increase the risks of side effects when we finally do start to treat them. History is difficult to obtain from the patient at times as he will often cut the provider off intake the conversation in a different direction. I explained to the patient and his brother that we can admit him with plans for placement. However, I asked that he work with us as a team to come to [facility] and his treatment such as his hypertension while he is here. He expressed understanding and said he is willing to work with us but will want to have discussions prior to being started on any new medications. I asked him to repeat back to me my concerns for his untreated medical conditions such as his hypertension, peripheral arterial disease, diabetes mellitus. He was able to articulate that left untreated his chronic medical conditions could cause stroke, heart attack, worsening kidney disease, worsening heart failure, up to including . We did discuss CODE STATUS, he wishes to be a full code and for his brother to make medical decisions for him if he cannot make them himself. Please see recent outpatient notes from cardiology, neurology, wound care, orthopedics, and podiatry within the past year for further documentation and summary of the patient's chronic medical conditions and his typical refusal of research back, guideline based treatment. Admission Exam Per Admitting Provider Physical Exam: General: In no acute distress, stated age, chronically ill-appearing, poor hygiene HEENT: Normocephalic, atraumatic, no scleral icterus, pupils around round, symmetrical, and reactive to light, moist mucus membranes, trachea midline, no thyromegaly Chest/Pulm: No respiratory distress, symmetrical chest expansion, clear breath sounds throughout Cardiac: RRR, no murmurs noted Abdomen: Negative for ascites and bruising, normoactive bowel sounds, soft, non- tender to palpation throughout Musculoskeletal: No acute trauma on exam, see pictures below of LE wounds/scars Extremities: Radial, dorsalis pedis, and posterior tibial pulses are intact and symmetrical, no edema noted in the [facility]'s Skin: see pictures below of [facility] wounds/scars Neuro: Alert and oriented to person, place, month, year, and president, no focal defects, significant neuropathy in the [facility]'s Psych: No acute distress, polite, often fluctuating mental focus, calm and cooperative during the exam Principal Diagnosis Uncontrolled HTN, idiopathic peripheral neuropathy Discharge Exam General:Alert and oriented, no acute distress, HEENT: Normocephalic, moist oral mucosa, Cardio: Regular rate and rhythm Resp:No increased resp effort, no resp distress Skin: Warm, pink, dry, Discharge Data Allergies Allergy/AdvReac Type Severity Reaction Status Date / Time doxycycline Allergy Mild URTICARIA Verified 09/12/23 11:48 Consultations 09/12/23 12:04 ED Decision to Admit Stat 09/13/23 10:56 Consult Cardiology Routine Hospital Course (1) Failure to thrive in adult: (2) Chronic wound: (3) Bilateral leg pain: (4) Ambulatory dysfunction: (5) PAD (peripheral artery disease): (6) Uncontrolled hypertension: (7) DM2 (diabetes mellitus, type 2): (8) History of CVA (cerebrovascular accident): (9) Elevated troponin I level: (10) PVD (peripheral vascular disease): Plan Pt is a 63 yo male with a past medical history of DMT2, HLD< ambulatory dysfunction, chronic ankle wounds with extensive PAD, hx CVA, HTN and idiopathic polyneuropathy who presents to the hospital on 09/11 for placement and chronic ankle wounds. 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, which he states has been an issue for years and he has been using ibuprofen nightly for it with some relief - explained to pt repeatedly that regardless of cause of neuropathy, once nerve damage is done it is best to treat the symptoms associated with nerve damage, and while he fixates often on wanting testing for chronic lyme and mycoplasma, he is agreeable to try treatment for the neuropathy, so medium dose of lyrica was trialed in the hospital and initially 100 mg BID did bring pain from 4/10 to 1-2/10 but caused significant drowsiness so was scaled back to 100 mg HS on discharge - advised due to his CKD he should avoid ibuprofen from now on, and advised him that lyrica takes time to work and to not give up early on it or manager intermediate relief may be difficult for him to achieve, and advised him goal of talking to providers should be to optimize his known chronic conditions and treat pain so he can become more mobile again to avoid further functional loss #Failure to thrive in adult #Ambulatory dysfunction Presented to the ED today with his brother due to needing placement as he has no safe place to live at this time, as pt had been sleeping on his brothers recliner, however, this has not been a permanent option Patient has multiple poorly controlled chronic medical conditions causing the majority of his current disabilities, however, his medical noncompliance and distrust of the medical system is preventing adequate treatment, although throughout this hospital stay he has become more understanding of the risks of not treating his chronic conditions and more agreeable to try treatments, stressed to him that treatments take time to work and he needs to have some patience with medications before saying they do not work for him since he is complex and likely several medications for his primary chronic problems will be needed for optimal control, at least initially Patient's ambulatory dysfunction is likely multifactorial including multiple chronic lower extremity wounds due to his severe and untreated peripheral arterial disease, and severe peripheral neuropathy from uncontrolled DM type II pt evaluated by PT/OT and noted rehab may helped but pt's insurance denied rehab - ultimately case management provided him with personal care homes to call for more permanent housing placement, brother agreeable to take him home in the meantime while awaiting availability - started on lyrica this admission as noted above, as his ambulatory dysf is largely related to pain secondary to neuropathy so treating the pain is the goal to get him to be more mobile so he can become stronger again, pt voices that he understands this and while fixated on chronic lyme with mycoplasma as the cause, ultimately agreeable to trial medication for symptom relief #Uncontrolled hypertension Blood pressure on admission overnight 210-230s systolic/ 110-120s diastolic, states at home it runs 190s systolic - denies any current symptoms of headache, chest pain, SOB, vision changes See cardiology note from 08/17/2023 for further details as Dr. Alvarez had a detailed discussion with the patient about recommendations and eventually had to settle on starting the patient on losartan and every other day minoxidil as this is what the patient was willing to take - on admission has declined IV BP medication and voiced understanding of risk of OR/CVA but was eventually agreeable to try, however when hydralazine was trialed he reported much worse pain in his feet and wanted to focus on the pain in his feet over the blood pressure that does not bother him - did agree to try oral medications so losartan was increased from home dose 50 to 100 mg daily and imdur was started at 30 mg BID to be increased to 60 mg BID on discharge as his pressures still hover 160-190s systolic, discussed this regime with pt at discharge and he was agreeable Pt remained medically stable this visit with asymptomatic high BPs. On discharge, new medication regime includes: - Losartan increased from 50 mg -> 100 mg daily - Imdur started and titrated up to 60 mg BID on discharge - lyrica started and settled on 100 mg HS on discharge He should follow-up with his PCP at the start of next week and should be f ollowed closely as he has multiple uncontrolled chronic medical conditions causing functional impairment. [facility] feel [facility], goals of his care should be centered around optimizing known medical conditions and symptom treatment to improve functional status so he can go back to doing things he enjoys. Total Time Total Time Spent Total Time Spent (In Minutes): <30 Discharge Plan Discharge Items Patient Disposition: Home - Self-Care Reason For Visit: FAILURE TO THRIVE, HTN, CHRONIC LE WOUNDS Discharge Diagnosis: Peripheral neuropathy Condition on Discharge: Good Activity: Resume your previous activity Non-emergency contact: Primary Care Provider Call non-emergency contact if: you have any medication questions Follow-up/Referrals: Jason Zendejas MD [Primary Care Provider] - 09/24/23 2:20 pm (Please arrive at 2:05 for appointment) Diet: Carb Consistent or DM2 and Low Sodium (2gm) Ambulatory Orders: Basic Metabolic Panel (Routine) Timeframe: 1 Day Location: Determined by Patient Ordered By: Mickie Marroquintl Attending Provider Instructions: You were admitted to the hospital with worsened chronic foot pain and uncontrolled blood pressure. During your stay here, we discussed the cause of your foot pain being due to peripheral neuropathy, meaning the pain comes from damage of the nerves. Regardless of the cause of neuropathy, once nerves are damaged, the treatment is to treat the uncomfortable symptoms associated with nerve damage, including burning and pain. As we talked about, we cannot undo the neuropathy, so you may always have some level of pain or numbness in your feet, but with starting a medication designed to address nerve pain like Lyrica (pregabalin) we can aim to make walking more comfortable for you so you can continue to keep active. You were also admitted for high blood pressures. While you remained totally asymptomatic, blood pressures over 180/110 can cause damage to vessels, especially smaller vessels of the body like those in the brain and those in the kidneys. This constant excessive pressure puts you at risk for having a heart attack or stroke as well. Ideally your blood pressure would be around 140/90 or less, but given your highly elevated pressures here, this should be done gradually and the current goal should be at least less than 180/110. We added a medication called imdur that has helped bring your blood pressure down some. You should also get blood work for a metabolic panel to check your electrolytes and kidney function this upcoming Wednesday, 09/19. You can get this lab at [facility] or at the local [facility] lab on [facility] [address] [facility]. We have sent a script for your pregabalin (lyrica) and imdur (isosorbide mononitrate) to your pharmacy. Please continue to take these when you leave the hospital. The lyrica will continue to improve the nerve pain for the next few weeks as it builds up in your system. Your next dose of lyrica would be tonight around 8 or 9pm, your next dose of imdur would be tonight around 8 or 9pm also. Then, you should take the imdur once in the morning and once at night every day and the Lyrica once every night. For your imdur, the dose sent was for 30 mg ( 1 tablet) twice daily, but as your blood pressures remained high on this in the hospital, you should plan to take 60 mg (2 tablet) twice daily (once in the morning and once at night). We also sent a new script for your losartan, as it is recommended you take 100 mg a day instead of the 50 mg you were on previously to further help with blood pressure control. We recommend you no longer take ibuprofen for pain, as your kidneys do not work as well as they once use to and ibuprofen can cause further kidney damage. Please plan to follow-up with your primary care physician by the start of next week. Pending Studies at Discharge: No Stand-Alone Forms: My [facility] Medications and DC Order Prescriptions: New losartan 50 mg Tablet 100 mg PO DAILY Qty: 60 1RF isosorbide mononitrate 30 mg Tablet Extended Release 24 Hr 30 mg PO BID Qty: 60 1RF pregabalin 100 mg capsule 100 mg PO BID Qty: 60 0RF Continued Danii Supplement 1 cap PO DAILY Rx Instructions: otc, as directed. minoxidil 2.5 mg tablet 2.5 mg PO Q OTHER DAY nystatin [Nyamyc] 100,000 unit/gram powder 1 applic TOPICAL DAILY PRN (Reason: flare under skin folds) Discontinued losartan 50 mg tablet 50 mg PO DAILY Discharge Orders: Discharge Order (Routine); Ordered 09/17/23 Ordered By: Lor Poe/Other Patient Handouts: Nutrition for Wound Healing Admission Data Admit Date/Time: 09/12/23 12:55 Attending Provider: Abraham Marti Admit Provider: Tosha Shielsd Primary Care Provider: Jason Zendejas [facility]; Tosha Shields; Steve Doran; James Alvarez; Iván Burnette; Umer Killian; Kevin Sandhu; Joseluis Bekcer Jr; Zay Garcia; Christi Navarro; Diana Ferris; Jason Sequeira; Jason Peña; Jose Martinez; Cierra Coelho; Yomi Jaramillo; Анна Salmon; Juan Gomez; Luis Campa; Faustino Hilario; Murray Ortiz Other Interventions: Discharge Summary Assessment (RN) Last Done: 09/17/23 08:35 Supervising Physician Co-Signing Physician Notes I personally examined the patient and verified all sandoval points of history and exam, discussed case, and agree with decision making with Dr Pedroza For home today. As patient started to discuss his pain and ways that made it sound like he is still looking at it is undefined, I tried to remind him that it could be significantly a waste of his time to continue to look backwards and look for esoteric etiologies, rather than looking forwards and looking for stabilizing/managing the problems that he has. Vitals noted, in general he is awake and alert somewhat pressured speech. No physical distress. HEENT normocephalic atraumatic mucous membranes moist. Breathing unlabored no accessory muscle use good effort. Skin shows bilateral lower extremity ulcers, the one on his right heel/Achilles region currently dressed. No surrounding erythema, no tenderness. Foot painappears to have longstanding multifactorial neuropathyand this appears to be predominantly related to that. Seems to be improving on trial of pregabalin. Given that his grogginess was a bit excessive for him, reduced the dose to 100 mg daily; safe/stable for home (with brother for now) - close outpt f/u Lower extremity woundshe treats with a Clorox spray and then dressings. Previously discussed with him that I suspect the Clorox spray probably does kill bacteria, but probably also was quite damaging to granulation tissueand therefore it leaves an open wound, and the exudative colonization is probably more skin gael than anything esoteric. 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 tolerating long-acting nitrates well, blood pressure overall somewhat better, would slowly titrate over time (send home on 60mg bid imdur since tolerating 30mg well and having some impact on BP) CKD stage IIIprobably largely hypertensive nephropathy, also worry a bit about his chronic NSAID usegiven that we are starting to make improvement in his neuropathic pain with pregabalin, we discussed NSAID cessation, and he is okay with this. BMP next week DVT prophylaxisLovenox disposition Stable for discharge, outpt PCP and wound f/u Resident Activity Tracking Resident Involvement: Resident Care Provided Care Provided: Adult Hospital Medicine
[2023-09-17 07:42] LABS: BUN Creatinine Ratio 14.2 (10-20); Calcium 8.7 mg/dl (8.6-10.3); Creatinine Clr Calc Pharmacy 61.8 ml/min; Est GFR (African American) 48.3 ml/min; Est GFR (Non-African American) 41.7 ml/min; Potassium 3.8 mmol/L (3.5-5.1)
--- NOTE | 2023-09-17 16:37 | Billing Data ---
Date of Service September 17, 2023 Coding Level of Care Code 47634 IN/OBS DISCH 30 MIN/LESS
== END 2023-09-17 09:55 | disposition home or self-care (01) | DRG 74 ==
LOC: ED 09:20 → SUATTDRO 12:55 → 2E 12:55 → 3W 09-16 13:34
DX: Z91.199 Patient's noncompliance with other medical treatment and regimen due to unspecified reason; I73.9 Peripheral vascular disease, unspecified; Z79.899 Other long term (current) drug therapy; E11.51 Type 2 diabetes mellitus with diabetic peripheral angiopathy without gangrene; E78.5 Hyperlipidemia, unspecified; E11.42 Type 2 diabetes mellitus with diabetic polyneuropathy; E11.65 Type 2 diabetes mellitus with hyperglycemia; I24.89 Other forms of acute ischemic heart disease; Z68.32 Body mass index [BMI] 32.0-32.9, adult; I44.1 Atrioventricular block, second degree; Z88.1 Allergy status to other antibiotic agents; R62.7 Adult failure to thrive; Z86.73 Personal history of transient ischemic attack (TIA), and cerebral infarction without residual deficits

== ENCOUNTER 2023-09-19 11:29 | Inpatient (IN) ==
--- NOTE | 2023-09-19 12:11 | Emergency Department Note ---
Impression & Plan SOB (shortness of breath), Hypertensive urgency, Elevated troponin ED Provider Note NAME: AMAN RHOADES AGE: 63 SEX: M : 1960 ARRIVES VIA: Walk-In INFORMANT: [Patient] ED PROVIDER(S): [Gavin Garcia MD] CHIEF COMPLAINT: Shortness of breath HISTORY OF PRESENT ILLNESS: The patient is a 63-year-old male who states that he was recently in our hospital for issues with his legs. He was short of breath at discharge but his breathing has worsened the last couple of days. He was discharged 2 days ago. The patient has a cough that is nonproductive. He feels like he has to cough things out but nothing will come out. There has been no fever. No vomiting or diarrhea. He does not have any diagnosed lung disease. He wonders if he may have mycoplasma. PMHx/PSHx/Social Hx: See Below PHYSICAL EXAM: GENERAL: Patient is in no acute distress. HEENT: No acute trauma, normocephalic atraumatic, mucous membranes moist, no nasal congestion. NECK: No stridor, no adenopathy, no meningismus, trachea is midline. LUNGS: Clear to auscultation bilaterally, no wheeze, no rhonchi, breath sounds equal. HEART: Somewhat irregular rhythm, no obvious murmur, normal rate. ABDOMEN: Soft, nontender, no peritonitis. EXTREMITIES: The patient has some healing wounds to his lower extremities, there is no erythema to the cellulitis. There is some coolness to his lower extremities which she states is chronic. NEUROLOGIC: Oriented x 3, no acute motor or sensory deficits, no focal weakness. SKIN: No jaundice, no diaphoresis. DIFFERENTIAL DIAGNOSIS: Dysrhythmia, CHF, pneumonia, bronchitis, anemia, cardiac ischemia, among others. EMERGENCY DEPARTMENT PROCEDURES: MEDICAL DECISION MAKING: There is no leukocytosis. A mild anemia was seen. There was a normal platelet count. No coagulopathy. VBG did not show any significant CO2 retention, no acidosis. Renal panel testing showed a slightly high creatinine, this is baseline. No electrolyte abnormality in need of emergent correction. ECG shows a lot of baseline artifact but no obvious acute ischemia. On the maintenance specialist, the patient appeared to be in a sinus rhythm with a first-degree AV block. Cardiac enzyme testing x 1 does show elevation to the troponin. This elevation could be secondary to cardiac injury or mismatch from his high blood pressure. Chest x-ray did not show CHF, pneumonia or pneumothorax. Chest CT did not show PE, no pneumonia. Respiratory bio fire was negative. On exam, the patient was quite hypertensive. He was not hypoxic. The patient was given IV labetalol, this did decrease his blood pressure to a more reasonable level. I suspect the patient's complaints are secondary to his uncontrolled hypertension. He has in the past been resistant to take medications for his blood pressure. I did talk to the patient about his findings and my concerns, he has agreed to be hospitalized for blood pressure control/further workup. I did speak with case management, the on-call hospitalist was consulted. Prior/Outside records/notes reviewed: Discharge summary note from 09/17/2023 discussing his hospitalization and plan at discharge. ECG per my interpretation: Indication was shortness of breath. The ECG shows a somewhat irregular rhythm with a poor baseline. There is a right bundle branch block. Rhythm interpretation is difficult given the baseline artifact but I suspect a sinus rhythm with a long first-degree block. There is no acute ST elevation, no PVCs. The QTc is 509. Continuous Cardiac Monitoring per my interpretation: An order was placed for continuous cardiac monitoring. The monitor shows a rate of 91 with what appears to be a sinus rhythm with a long first-degree AV block. Imaging/x-ray results per my interpretation: Chest x-ray does not show mediastinal widening, pneumonia or pneumothorax. Chronic Medical/Social conditions affecting care: Recent hospitalization with discharge just 2 days ago. Care/Management discussed with: Case management, the on-call hospitalist Level of care consideration(s): After review of the information above and other included data: --I believe the patient requires escalation of care to admission DISPOSITION: Admission Past Med/Surg History Problem List Elevated troponin (Acute) Hypertensive urgency (Acute) SOB (shortness of breath) (Acute) Mobitz I Bilateral leg pain (Acute) Failure to thrive in adult Chronic wound (Acute) Idiopathic polyneuropathy Stenosis of both vertebral arteries Dyslipidemia Ambulatory dysfunction PAD (peripheral artery disease) Stroke-like symptoms DM2 (diabetes mellitus, type 2) RAZA (acute kidney injury) Lyme disease History of CVA (cerebrovascular accident) Elevated troponin I level (Acute) Hypertensive urgency (Acute) Weakness (Acute) Hypertension (Acute) PVD (peripheral vascular disease) Nonhealing nonsurgical wound (Acute) Abnormal ankle brachial index Numbness and tingling in both hands Numbness and tingling of both lower extremities Elevated blood sugar Vitamin B12 deficiency Medical History 1st degree AV block Medical non-compliance Nihilism Uncontrolled hypertension Tachycardia H/o Lyme disease Social History Smoking Status: Never smoker Hx Alcohol Use: No Hx Substance Use: No Preferred Language: Burkinan Communication Ability: Effective Visual Impairment: No Limitations Hearing Ability: Normal Outsole Splicer Required: No Beliefs That Will Affect Care: None marital status: Unknown Current Living Situation: Family Current Living Situation Comment: living with brother and sister in law current occupational status: unemployed Feels Safe at Home: Yes caffeine: Yes during the past year weight has: remained stable Assistive Devices: Walker Allergies Allergies Allergy/AdvReac Type Severity Reaction Status Date / Time doxycycline Allergy Mild URTICARIA Verified 09/12/23 11:48 Home Meds Home Medications Medication Instructions Recorded Confirmed Danii Supplement 1 cap PO DAILY 08/23/23 09/19/23 minoxidil 2.5 mg tablet 2.5 mg PO Q OTHER DAY 08/23/23 09/19/23 nystatin 100,000 unit/gram topical 1 applic topical DAILY PRN flare 09/12/23 09/19/23 powder (Nyamyc) under skin folds Previous Rx's Medication Instructions Recorded isosorbide mononitrate 30 mg 30 mg PO BID #60 tabs 09/15/23 tablet,extended release 24 hr losartan 50 mg tablet 100 mg (2 x 50 mg) PO DAILY #60 09/15/23 tabs pregabalin 100 mg capsule 100 mg PO BID #60 caps 09/15/23 Results & Data (ED) Vital Signs Vital Signs - 24 hr 09/19/23 11:32 09/19/23 11:41 09/19/23 12:00 Temperature 36.6 C Temperature Source Temporal Artery Scan Pulse Rate 91 H 81 Pulse Rate [Apical] Respiratory Rate 18 18 Blood Pressure 197/107 H Blood Pressure [Left Arm] Blood Pressure Mean 137 Blood Pressure Mean [Left Arm] Pulse Oximetry 95 95 Oxygen Delivery Method Room Air Room Air Room Air Sepsis Recent Fever Within 48 Hours No Sepsis New/Unexplained Change in Mental Status No Sepsis Action Taken by Nursing No Action Required 09/19/23 12:08 09/19/23 12:34 09/19/23 13:24 Temperature Temperature Source Pulse Rate 77 84 Pulse Rate [Apical] 80 Respiratory Rate 11 L Blood Pressure 249/115 H Blood Pressure [Left Arm] 208/114 H Blood Pressure Mean Blood Pressure Mean [Left Arm] 145 Pulse Oximetry 96 Oxygen Delivery Method Room Air Sepsis Recent Fever Within 48 Hours Sepsis New/Unexplained Change in Mental Status Sepsis Action Taken by Nursing 09/19/23 14:00 09/19/23 14:06 Temperature Temperature Source Pulse Rate 66 Pulse Rate [Apical] Respiratory Rate Blood Pressure 187/97 H Blood Pressure [Left Arm] 186/97 H Blood Pressure Mean Blood Pressure Mean [Left Arm] 126 Pulse Oximetry Oxygen Delivery Method Sepsis Recent Fever Within 48 Hours Sepsis New/Unexplained Change in Mental Status Sepsis Action Taken by Care Home Medications Current Medication List: was personally reviewed by me Laboratory Data Attestation: I reviewed the patient's lab results. 09/19/23 12:09 09/19/23 12:09 Lab Results 09/19/23 09/19/23 09/19/23 Range/Units 12:09 12:11 12:12 WBC 6.60 (4.8-10.8) K/ul RBC 4.70 (4.70-6.10) M/uL Hgb 13.6 L (14.0-18.0) g/dl Hct 40.9 L (42.0-52.0) % MCV 87.0 (80.0-100.0) fL MCH 28.9 (25.0-34.0) pg MCHC 33.3 (32.0-36.0) g/dL RDW Std Deviation 45.6 (36.4-46.3) fL RDW Coeff of Arcadio 14.2 (11.5-14.5) % Plt Count 158 (130-400) K/uL MPV 11.1 (9.4-12.4) fL Immature Gran % (Auto) 0.2 % Neut % (Auto) 75.7 % Lymph % (Auto) 12.4 % Davidson % (Auto) 8.8 % Eos % (Auto) 2.3 % Baso % (Auto) 0.6 % Neut # (Auto) 5.00 (1.40-6.50) K/uL Lymph # (Auto) 0.82 L (1.20-3.40) K/uL Davidson # (Auto) 0.58 (0.11-0.59) K/uL Eos # (Auto) 0.15 (0.00-0.50) K/uL Baso # (Auto) 0.04 (0.00-0.20) K/uL Immature Gran # (Auto) 0.01 (0.01-0.20) K/uL PT 11.4 (9.0-12.0) Seconds INR 1.1 (0.9-1.1) APTT 29 (21-31) Seconds PTT Ratio 1.1 VBG pH 7.39 (7.36-7.41) VBG pCO2 40 (38-50) mmHg VBG pO2 35 mmHg VBG HCO3 24 mmol/L VBG O2 Saturation 62.9 % VBG Base Excess -0.7 mEq/L Sodium 141 (136-145) mmol/L Potassium 4.1 (3.5-5.1) mmol/L Chloride 108 H (98-107) mmol/L Carbon Dioxide 25 (21-32) mmol/L Anion Gap 8 (3-11) BUN 27 H (6-23) mg/dl Creatinine 1.47 H (0.6-1.4) mg/dl Est Cr Clr Drug Dosing Not Reportable Est GFR ( Amer) 57.2 ml/min Est GFR (Non-Af Amer) 49.4 ml/min BUN/Creatinine Ratio 18.4 (10-20) Glucose 211 H (70-99(Fasting)) mg/dl Calcium 9.5 (8.6-10.3) mg/dl Magnesium 1.9 (1.7-2.4) mg/dl Total Bilirubin 0.5 (0.2-1.0) mg/dl AST 13 (13-39) U/L ALT 23 (7-52) U/L Alkaline Phosphatase 54 (34-104) U/L Troponin I High Sens 76.2 H* (0-20) pg/ml B-Natriuretic Peptide 231 H (0-100) pg/ml Total Protein 7.2 (6.0-8.3) gm/dl Albumin 4.3 (3.4-5.0) gm/dl Globulin 2.9 (2.5-4.0) gm/dl Albumin/Globulin Ratio 1.5 (0.9-2) Adenovirus (PCR) Not Detected (NotDetected) B. pertussis DNA (PCR) Not Detected (NotDetected) B.parapertussis DNA PCR Not Detected (NotDetected) C. pneumoniae DNA (PCR) Not Detected (NotDetected) Coronavirus OC43 (PCR) Not Detected (NotDetected) Coronavirus HKU1 (PCR) Not Detected (NotDetected) Coronavirus 229E (PCR) Not Detected (NotDetected) SARS-CoV-2 (PCR) Not Detected (NotDetected) Coronavirus NL63 (PCR) Not Detected (NotDetected) Human Metapneumovir PCR Not Detected (NotDetected) Influenza Type A (PCR) Not Detected (NotDetected) Influenza Type B (PCR) Not Detected (NotDetected) M. pneumoniae (PCR) Not Detected (NotDetected) Parainfluenza 1 (PCR) Not Detected (NotDetected) Parainfluenza 2 (PCR) Not Detected (NotDetected) Parainfluenza 3 (PCR) Not Detected (NotDetected) Parainfluenza 4 (PCR) Not Detected (NotDetected) RSV (PCR) Not Detected (NotDetected) Entero/Rhino (PCR) Not Detected (NotDetected) Administered Medications Discontinued Medications Ioversol (Optiray 320 125ml) 119 ml IV ONCE ONE Stop: 09/19/23 13:19 Last Admin: 09/19/23 13:19 Dose: 119 ml Documented By: DANIEL Labetalol HCl (Labetalol Hcl Iv 5 Mg/Ml 20ml) 10 mg IV NOW STA Stop: 09/19/23 12:50 Last Admin: 09/19/23 13:24 Dose: 10 mg Documented By: AIMEE Co-signed By: ARIA Imaging Data Radiologist's Impression: Chest X-Ray 09/19/23 11:41 XR chest 1V portable CLINICAL HISTORY: Dyspnea TECHNIQUE: Single frontal radiograph of the chest was obtained. Comparison: Comparison is made to chest radiograph 09/12/2023 FINDINGS: No lines and tubes are seen. Cardiomegaly is noted. Prominence and cephalization of the vasculature is seen. No evidence of pleural effusion or pneumothorax. IMPRESSION: Cardiomegaly and mild pulmonary edema. ACT 112: Negative or not required by law. Electronically signed by: Momo Valdez M.D. 09/19/2023 1:28 PM Chest CTA 09/19/23 12:55 CT angio chest PE protocol CLINICAL HISTORY: PE TECHNIQUE: Multidetector row helical CT of the chest was performed with angiographic protocol. Coronal and sagittal reformations were obtained. Coronal and sagittal MIPS were obtained from the axial data set and were submitted for review. Automated dose lowering techniques and/or adjustment according to patient size were utilized for this exam. CT DOSE: 935.99 mGy.cm Comparison: None available at the time of this dictation. FINDINGS: Lungs and pleura: Normal. Heart and pericardium: There is cardiomegaly without evidence of pericardial effusion. Vessels: Moderate atherosclerotic changes in the aorta and coronary arteries. No pulmonary emboli are seen. Mediastinum and sarah: Unremarkable. Chest wall and lower neck: Unremarkable. Abdomen: Unremarkable. Bones: Degenerative changes in the thoracic spine. IMPRESSION: No acute abnormality and in particular no evidence of pulmonary embolus. ACT 112: Negative or not required by law. Electronically signed by: Momo Valdez M.D. 09/19/2023 2:00 PM Discharge Plan Visit Data Chief Complaint: Shortness of Breath/Dyspnea Stated Complaint: TROUBLE BREATHING, FOOT PAIN ED Provider: Gavin Garcia Discharge Problem: SOB (shortness of breath), Hypertensive urgency, Elevated troponin Patient Disposition: Admitted As Inpatient Condition: Fair Forms Stand Alone Forms: [facility] Prescriptions Prescriptions: No Action Danii Supplement 1 cap PO DAILY Rx Instructions: otc, as directed. minoxidil 2.5 mg tablet 2.5 mg PO Q OTHER DAY nystatin [Nyamyc] 100,000 unit/gram powder 1 applic TOPICAL DAILY PRN (Reason: flare under skin folds) losartan 50 mg Tablet 100 mg PO DAILY Qty: 60 1RF isosorbide mononitrate 30 mg Tablet Extended Release 24 Hr 30 mg PO BID Qty: 60 1RF pregabalin 100 mg capsule 100 mg PO BID Qty: 60 0RF Referrals Referrals: Jason Zendejas MD [Physician] -
[2023-09-19 12:28] LABS: Base Excess VBG -0.7 mEq/L; HCO3 VBG 24 mmol/L; Oxygen Saturation VBG 62.9 %; PCO2 VBG 40 mmHg (38-50); PO2 VBG 35 mmHg; pH VBG 7.39 (7.36-7.41)
[2023-09-19 12:37] LABS: Basophils # (auto) 0.04 K/uL (0.00-0.20); Basophils % (auto) 0.6 %; Eosinophils # (auto) 0.15 K/uL (0.00-0.50); Eosinophils % (auto) 2.3 %; Hematocrit (blood only) 40.9 % (42.0-52.0); Hemoglobin 13.6 g/dl (14.0-18.0); Immature Granulocytes # (auto) 0.01 K/uL (0.01-0.20); Immature Granulocytes % (auto) 0.2 %; Lymphocytes # (auto) 0.82 K/uL (1.20-3.40); Lymphocytes % (auto) 12.4 %; Mean Corpuscular Hemoglobin 28.9 pg (25.0-34.0); Mean Corpuscular Hgb Conc 33.3 g/dL (32.0-36.0); Mean Platelet Volume 11.1 fL (9.4-12.4); Monocytes # (auto) 0.58 K/uL (0.11-0.59); Monocytes % (auto) 8.8 %; Neutrophils % (auto) 75.7 %; Platelet Count 158 K/uL (130-400); RDW Coefficient of Variation 14.2 % (11.5-14.5); RDW Standard Deviation 45.6 fL (36.4-46.3)
[2023-09-19 12:53] LABS: Alanine Aminotransferase 23 U/L (7-52); Albumin Globulin Ratio 1.5 (0.9-2); Albumin Level 4.3 gm/dl (3.4-5.0); Alkaline Phosphatase 54 U/L (34-104); Anion Gap 8 (3-11); Aspartate Aminotransferase 13 U/L (13-39); BUN Creatinine Ratio 18.4 (10-20); Bilirubin,Total 0.5 mg/dl (0.2-1.0); Blood Urea Nitrogen 27 mg/dl (6-23); Calcium 9.5 mg/dl (8.6-10.3); Carbon Dioxide 25 mmol/L (21-32); Chloride 108 mmol/L (98-107); Est GFR (African American) 57.2 ml/min; Est GFR (Non-African American) 49.4 ml/min; Globulin 2.9 gm/dl (2.5-4.0); Glucose 211 mg/dl (70-99(Fasting)); Magnesium 1.9 mg/dl (1.7-2.4); Potassium 4.1 mmol/L (3.5-5.1); Sodium 141 mmol/L (136-145); Total Protein 7.2 gm/dl (6.0-8.3)
[2023-09-19 13:04] LABS: Adenovirus PCR Not Detected (NotDetected); Bordetella parapertussis PCR Not Detected (NotDetected); Bordetella pertussis PCR Not Detected (NotDetected); Chlamydia pneumoniae PCR Not Detected (NotDetected); Coronavirus 229E PCR Not Detected (NotDetected); Coronavirus CoV-2 (COVID19)PCR Not Detected (NotDetected); Coronavirus HKU1 PCR Not Detected (NotDetected); Coronavirus NL63 PCR Not Detected (NotDetected); Coronavirus OC43PCR Not Detected (NotDetected); Human Metapneumovirus PCR Not Detected (NotDetected); Influenza A PCR Not Detected (NotDetected); Influenza B PCR Not Detected (NotDetected); Mycoplasma pneumoniae PCR Not Detected (NotDetected); Parainfluenza Virus 1 PCR Not Detected (NotDetected); Parainfluenza Virus 2 PCR Not Detected (NotDetected); Parainfluenza Virus 3 PCR Not Detected (NotDetected); Parainfluenza Virus 4 PCR Not Detected (NotDetected); Respiratory Syncytial VirusPCR Not Detected (NotDetected); Rhinovirus/Enterovirus PCR Not Detected (NotDetected)
[2023-09-19 13:06] LABS: INR 1.1 (0.9-1.1); Partial Thromboplastin Ratio 1.1; Partial Thromboplastin Time 29 Seconds (21-31); Prothrombin Time 11.4 Seconds (9.0-12.0)
[2023-09-19 13:11] LABS: Troponin I High Sensitivity 76.2 pg/ml (0-20)
[2023-09-19] MEDS: OPTIRAY 320 125ml IV ONE (13:19)
[2023-09-19] MEDS: LABETALOL HCL IV 5 MG/ML 20ML IV STA (13:24)
--- NOTE | 2023-09-19 13:30 | XRay Report ---
XR chest 1V portable CLINICAL HISTORY: Dyspnea TECHNIQUE: Single frontal radiograph of the chest was obtained. Comparison: Comparison is made to chest radiograph 09/12/2023 FINDINGS: No lines and tubes are seen. Cardiomegaly is noted. Prominence and cephalization of the vasculature i s seen. No evidence of pleural effusion or pneumothorax. IMPRESSION: Cardiomegaly and mild pulmonary edema. ACT 112: Negative or not required by law. Electronically signed by: Momo Valdez M.D. 09/19/2023 1:28 PM
--- NOTE | 2023-09-19 14:03 | CT Scan Report ---
CT angio chest PE protocol CLINICAL HISTORY: PE TECHNIQUE: Multidetector row helical CT of the chest was performed with angiographic protocol. Posey l and sagittal reformations were obtained. Coronal and sagittal MIPS were obtained from the axial chirag a set and were submitted for review. Automated dose lowering techniques and/or adjustment according to patient size were utilized for this exam. CT DOSE: 935.99 mGy.cm Comparison: None available at the time of this dictation. FINDINGS: Lungs and pleura: Normal. Heart and pericardium: There is cardiomegaly without evidence of pericardial effusion. Vessels: Moderate atherosclerotic changes in the aorta and coronary arteries. No pulmonary emboli are seen. Mediastinum and sarah: Unremarkable. Chest wall and lower neck: Unremarkable. Abdomen: Unremarkable. Bones: Degenerative changes in the thoracic spine. IMPRESSION: No acute abnormality and in particular no evidence of pulmonary embolus. ACT 112: Negative or not required by law. Electronically signed by: Momo Valdez M.D. 09/19/2023 2:00 PM
--- NOTE | 2023-09-19 14:43 | History & Physical Report ---
Date of Service September 19, 2023 Assessment & Plan (1) Hypertensive urgency: Plan: Worsening chest pressure and SOB at rest x 1 month, with an acute exacerbation the morning of 09/18 HTN at 249/115 on arrival Hx of medication noncompliance May have also been some confusion with medications upon discharge Discharge note reads Imdur 60mg BID, but taking 30mg BID; patient did not take this morning Labetalol 10 mg IV given in the ED; will discontinue as this made patient bradycardic Patient refused hydralazine Amenable to Nitropaste If refractory, consider clonidine 0.1 mg p.o. BID PRN for SBP>200 Signed out to overnight hospitalist team Continue losartan, hold isosorbide while on Nitropaste A.m. CBC, BMP, mag (2) (HFpEF) heart failure with preserved ejection fraction: Plan: BNP elevated at 231 on arrival, chest x-ray with pulmonary edema, severely elevated blood pressure and shortness of breath on admission Lasix 40 mg IV ordered but patient refuses diuretics as he says it makes his feet hurt Daily weights Last echocardiogram revealed LVEF at 55 to 60%, severe LVH, mild AI Heart healthy, low-sodium diet Starting Nitropaste and attempts at blood pressure control as above (3) Patient refuses to take medication: Plan: Despite HTN with SBP>220 and DBP>120, several nursing reports with patient refusal to take antihypertensives Refused IV hydralazine as he reports it makes his feet hurt too much Patient also refuses insulin and Lasix Multiple conversations regarding high blood pressure, and risks/benefits of med ication refusal which can lead to NM, DVT/PE, stroke, and/or (4) Elevated troponin: Plan: Troponin 76-->51 on arrival, ECG with first-degree AV block, right bundle branch block, without ischemic changes Troponin elevated at baseline; suspect secondary to hypertensive urgency in the setting of severe LVH Continue telemetry monitoring (5) DM2 (diabetes mellitus, type 2): Plan: Last A1c at 6.6% on 06/08/2023 Glucose 211 on admission Patient is not on any diabetic medications, and has refused insulin in the past If patient is amenable, will trial loose SSI with target BSG range 110-140, CF 35, carb ratio 10 T2DM diet BSG ACHS Adjust regimen as needed AM A1c (6) Chronic kidney disease, stage 3a: Plan: BUN 27, creatinine 1.47 (around baseline), EGFR 49.4 Avoid nephrotoxic agents where possible Monitor daily BMPs if starting lasix Continue losartan (7) Ambulatory dysfunction: Plan: PT/OT evaluations appreciated Fall precautions (8) PAD (peripheral artery disease): Plan: Known PAD with nonhealing wounds on ankles, evaluated by vascular medicine and no intervention indicated Pulses are nonpalpable (9) Medical non-compliance: (10) Uncontrolled hypertension: Plan Disposition: Admit to PCU telemetry Full code Heart healthy, low-sodium diet (1800 mL fluid restriction) VTE PPx: Lovenox 40 mg SQ q24h History of Present Illness Chief Complaint: Chest pressure, SOB/dyspnea Primary Care Provider: Janessa Fowler is a 63-year-old male with PMH of T2DM, neuropathy, CVA, B12 deficiency, HTN, PAD, dyslipidemia, ambulatory dysfunction, chronic wound, FTT, and history AV block. He presented for SOB x 1 month with an acute exacerbation today on 09/18. He reports that he was having trouble breathing both at rest and with exertion, and believes it could be secondary to his high blood pressure. Not worse when he lies flat on his back, but patient does sleep in a recliner. Patient took his losartan this morning, but not his isosorbide mononitrate. He does report good compliance with taking it since he was discharged from the hospital recently. Patient also takes a Japanese herbal supplement called Danii, which she takes for mycoplasma pneumonia and Lyme disease; he believes this increases your blood pressure. Patient moved in with his brother in January 2023. He does have a history of diabetes, but is not currently on diabetic medications, and has declined in the past. He does not use supplemental oxygen at home. He denies any ambulatory assist devices. No falls. He denies smoking, tobacco use, alcohol use, and recreational drug use. Additionally, patient reports that his feet have been hurting more recently; he does have ongoing neuropathy. Patient is hypertensive at 187/97 at time of admission; vitals otherwise stable. ED course: Labetalol 10 mg IV ROS: Patient endorses hot intolerance, CAMARA, chest pressure, SOB at rest this morning (resolved), nausea, and neuropathy in the feet (ongoing). Patient denies fever, chills, dizziness, lightheadedness, chest pain, chest pressure, chest palpitations, chest pain/pressure in the left shoulder/arm/neck, abdominal pain, vomiting, diarrhea, burning with urination, change in urinary/bowel habits, or blood in the urine/stool. Allergies Allergy/AdvReac Type Severity Reaction Status Date / Time doxycycline Allergy Mild URTICARIA Verified 09/12/23 11:48 Home Medications Medication Instructions Recorded Confirmed Type Danii Supplement 1 cap PO DAILY 08/23/23 09/19/23 History minoxidil 2.5 mg tablet 2.5 mg PO Q OTHER DAY 08/23/23 09/19/23 History nystatin 100,000 unit/gram topical 1 applic topical DAILY PRN flare 09/12/23 09/19/23 History powder ([facility]) under skin folds isosorbide mononitrate 30 mg 30 mg PO BID #60 tabs 09/15/23 09/19/23 Rx tablet,extended release 24 hr losartan 50 mg tablet 100 mg (2 x 50 mg) PO DAILY #60 09/15/23 09/19/23 Rx tabs pregabalin 100 mg capsule 100 mg PO BID #60 caps 09/15/23 09/19/23 Rx Past Med/Surg History Problem List (Updated 09/19/23 @ 22:40 by Estelita Durham MD) (HFpEF) heart failure with preserved ejection fraction Chronic kidney disease, stage 3a Lower extremity edema Patient refuses to take medication Uncontrolled hypertension Medical non-compliance Elevated troponin (Acute) Hypertensive urgency (Acute) SOB (shortness of breath) (Acute) Mobitz I Bilateral leg pain (Acute) Failure to thrive in adult Chronic wound (Acute) Idiopathic polyneuropathy Stenosis of both vertebral arteries Dyslipidemia Ambulatory dysfunction PAD (peripheral artery disease) Stroke-like symptoms DM2 (diabetes mellitus, type 2) RAZA (acute kidney injury) Lyme disease History of CVA (cerebrovascular accident) Elevated troponin I level (Acute) Hypertensive urgency (Acute) Weakness (Acute) Hypertension (Acute) PVD (peripheral vascular disease) Nonhealing nonsurgical wound (Acute) Abnormal ankle brachial index Numbness and tingling in both hands Numbness and tingling of both lower extremities Elevated blood sugar Vitamin B12 deficiency Medical History 1st degree AV block Medical non-compliance Nihilism Uncontrolled hypertension Tachycardia H/o Lyme disease Social History Smoking Status: Never smoker Hx Alcohol Use: No Hx Substance Use: No Preferred Language: Turkish Communication Ability: Effective Visual Impairment: No Limitations Hearing Ability: Normal Mobile Ui Developer Required: No Beliefs That Will Affect Care: None marital status: Unknown Current Living Situation: Family Current Living Situation Comment: living with brother and sister in law current occupational status: unemployed Other Information That Helps Us Care for You: No Feels Safe at Home: Yes caffeine: Yes during the past year weight has: remained stable Assistive Devices: Walker Review of Systems Review of Systems: See HPI above Physical Exam Physical Exam: General: no acute distress; non-toxic appearing; well-nourished; cooperative; SpO2 96% on RA HEENT: normocephalic, atraumatic; no scleral icterus; PERRLA w/ EOMs intact; moist mucus membrane; vision and hearing grossly intact Neck: supple; no lymphadenopathy; trachea midline Skin: Patient does exhibit a superficial lesion on the anterior aspect of his left lower extremity; skin is warm, dry without signs of tenting; no cyanosis; no rashes, bruising, or erythema noted CV: chest wall NTP; RRR; S1/S2 normal; no murmurs/rubs/gallops; pulses intact and symmetric at radial, DP, and PT Lungs: no acute respiratory distress; symmetrical chest wall expansion; clear breath sounds across all lung mckenzie w/o adventitious sounds; no wheezing ABD: Soft, NTP; BS present; no rebound/guarding; moderate distention secondary to body habitus MSK: no tics or fasciculations; no edema noted in the LEs b/l, nonerythematous Neuro: A&Ox3; normal mood and affect; fluent speech; no focal deficits; sensation grossly intact in the LEs b/l Results & Data Results & Data Vital Signs (Past 12 Hours) Vital Signs Temp Pulse Pulse Resp BP BP Pulse Ox 09/19/23 14:06 66 187/97 H 09/19/23 14:00 186/97 H 09/19/23 13:24 84 249/115 H 09/19/23 12:34 77 09/19/23 12:08 80 11 L 208/114 H 96 09/19/23 12:00 09/19/23 11:41 81 18 95 09/19/23 11:32 36.6 C 91 H 18 197/107 H 95 O2 Del Method 09/19/23 14:06 09/19/23 14:00 09/19/23 13:24 09/19/23 12:34 09/19/23 12:08 Room Air 09/19/23 12:00 Room Air 09/19/23 11:41 Room Air 09/19/23 11:32 Room Air Laboratory Results Abnormal lab results 09/19/23 09/19/23 Range/Units 12:09 14:20 Hgb 13.6 L (14.0-18.0) g/dl Hct 40.9 L (42.0-52.0) % Lymph # (Auto) 0.82 L (1.20-3.40) K/uL Chloride 108 H (98-107) mmol/L BUN 27 H (6-23) mg/dl Creatinine 1.47 H (0.6-1.4) mg/dl Glucose 211 H (70-99(Fasting)) mg/dl Troponin I High Sens 76.2 H* 51.1 H* D (0-20) pg/ml B-Natriuretic Peptide 231 H (0-100) pg/ml Diagnostic Findings Chest X-Ray 09/19/23 11:41 XR chest 1V portable CLINICAL HISTORY: Dyspnea TECHNIQUE: Single frontal radiograph of the chest was obtained. Comparison: Comparison is made to chest radiograph 09/12/2023 FINDINGS: No lines and tubes are seen. Cardiomegaly is noted. Prominence and cephalization of the vasculature is seen. No evidence of pleural effusion or pneumothorax. IMPRESSION: Cardiomegaly and mild pulmonary edema. ACT 112: Negative or not required by law. Electronically signed by: Momo Valdez M.D. 09/19/2023 1:28 PM Chest CTA 09/19/23 12:55 CT angio chest PE protocol CLINICAL HISTORY: PE TECHNIQUE: Multidetector row helical CT of the chest was performed with angiographic protocol. Coronal and sagittal reformations were obtained. Coronal and sagittal MIPS were obtained from the axial data set and were submitted for review. Automated dose lowering techniques and/or adjustment according to patient size were utilized for this exam. CT DOSE: 935.99 mGy.cm Comparison: None available at the time of this dictation. FINDINGS: Lungs and pleura: Normal. Heart and pericardium: There is cardiomegaly without evidence of pericardial effusion. Vessels: Moderate atherosclerotic changes in the aorta and coronary arteries. No pulmonary emboli are seen. Mediastinum and sarah: Unremarkable. Chest wall and lower neck: Unremarkable. Abdomen: Unremarkable. Bones: Degenerative changes in the thoracic spine. IMPRESSION: No acute abnormality and in particular no evidence of pulmonary embolus. ACT 112: Negative or not required by law. Electronically signed by: Momo Valdez M.D. 09/19/2023 2:00 PM ECG Additional Comments: ECG revealed atrial fibrillation at 83 bpm; QTc 509 (caution use of QT prolonging agents); right bundle branch block (which was present on his last EKG on September 12, 2023) Rate is atrial fibrillation; ? Sinus rhythm with first-degree block Code Status & VTE Plan Code Status Full code VTE Prophylaxis Plan VTE Prophylaxis will be ordered: Yes Supervising Physician Co-Signing Physician Notes PA Supervision Note: I personally saw and examined the patient. I verified all sandoval points and agree with ZULAY Campos with the following exceptions and/or additions: S-this patient is a 63-year-old male with severely uncontrolled hypertension, suspected OCD given obsessive thoughts of having infection with mycoplasma and various tickborne illnesses, focuses on specific medical diagnoses unrelated to his actual diagnoses, who presents with increasing shortness of breath and a feeling like he is drowning. He denies chest pain but is having a mild headache the last 2 days. History and ROS otherwise reviewed as above O- Vitals reviewed Gen: AAOx3, NAD HEENT: Anicteric sclerae, EOMI CV: RRR no mgr nl S1S2 Pulm: CTAB no wcr Abd: +BS soft NT ND no masses or hernias Ext: No edema, barely palpable DP pulse on right, could not palpate PT pulses or left DP pulse, 2+ radial pulses bilaterally Skin: No rashes, warm/dry, seborrhea of scalp Neuro: Full strength throughout, cranial nerves II through XII intact CBC BMP ECG, chest x-ray, CT angiogram chest reviewed A/T-43-cmg[age]-old male with hypertensive emergency with heart failure and elevated troponin, significantly impeded by his own obsessive thoughts with mycoplasma and tickborne illnesses, he is unwilling to be treated with most standard treatments. He is agreeable to try Nitropaste in addition to losartan-will start this and slowly lower blood pressure. Clonidine as needed Follow serial troponin Consider psychiatry consultation if patient is agreeable PG Care Time/CCT Total # of Minutes Spent Total Time Spent with Patient: Total time spent is greater than 50% in coordination of care (as documented) at patient's floor/unit and/or counseling patient: C[place] [address] INT INP/OBS CARE 3/75MIN Patient Type Established Medical Decision Making High Complexity Diagnoses Hypertensive urgency I16.0 (HFpEF) heart failure with preserved ejection fraction I50.30 Patient refuses to take medication Z53.20 Elevated troponin R79.89 DM2 (diabetes mellitus, type 2) E11.9 Chronic kidney disease, stage 3a N18.31 Ambulatory dysfunction R26.2 PAD (peripheral artery disease) I73.9 Medical non-compliance Z91.199 Uncontrolled hypertension I10
[2023-09-19] MEDS ORDERED: ACETAMINOPHEN 325 MG TAB PO PRN (17:32)
[2023-09-19] MEDS ORDERED: DEXTROSE 50% 50 ML SYRINGE IV PRN (17:32)
[2023-09-19] MEDS ORDERED: ONDANSETRON INJ 2 MG/ML 2 ML VIAL IV PRN (17:32)
[2023-09-19] MEDS ORDERED: GLUCOSE 40% GEL 15 GM TUBE PO PRN (17:32)
[2023-09-19] MEDS ORDERED: GLUCOSE 10 TAB/TUBE PO PRN (17:32)
[2023-09-19] MEDS ORDERED: LABETALOL HCL IV 5 MG/ML 20ML IV PRN (17:32)
[2023-09-19] MEDS ORDERED: GLUCAGON FOR INJ 1 MG VIAL SQ PRN (17:32)
[2023-09-19] MEDS ORDERED: CARBOHYDRATES FOR HYPOGLYCEMIA PO PRN (17:32)
[2023-09-19] MEDS: INSULIN ASPART PER UNIT CHARGE SC SCH (18:38)
[2023-09-19] MEDS: FUROSEMIDE 40 MG/4 ML VIAL IV STA (18:38)
[2023-09-19] MEDS: hydrALAZINE HCL 20 MG/ML VIAL IV STA (18:38)
[2023-09-19] MEDS ORDERED: cloNIDine HCL 0.1 MG TAB PO PRN (19:24)
[2023-09-19] MEDS: NITROGLYCERIN 2% OINTMENT 30GM TUBE EXT SCH (20:03)
[2023-09-19] MEDS: ENOXAPARIN INJ 40 MG/0.4 ML SYR SQ SCH (20:03)
[2023-09-19] MEDS: PREGABALIN 100 MG CAP PO SCH (20:04)
[2023-09-19] MEDS ORDERED: ISOSORBIDE MONO EXTENDED REL 30 MG TABCR PO SCH (21:00)
[2023-09-19] MEDS ORDERED: PREGABALIN 100 MG CAP PO SCH (21:00)
[2023-09-20 02:28] LABS: Basophils # (auto) 0.05 K/uL (0.00-0.20); Basophils % (auto) 0.8 %; Eosinophils # (auto) 0.25 K/uL (0.00-0.50); Hematocrit (blood only) 38.9 % (42.0-52.0); Immature Granulocytes # (auto) 0.01 K/uL (0.01-0.20); Immature Granulocytes % (auto) 0.2 %; Lymphocytes # (auto) 1.39 K/uL (1.20-3.40); Lymphocytes % (auto) 22.5 %; Mean Corpuscular Hemoglobin 29.1 pg (25.0-34.0); Mean Corpuscular Hgb Conc 33.4 g/dL (32.0-36.0); Mean Corpuscular Volume 87.2 fL (80.0-100.0); Mean Platelet Volume 11.1 fL (9.4-12.4); Monocytes # (auto) 0.77 K/uL (0.11-0.59); Monocytes % (auto) 12.4 %; Neutrophils # (auto) 3.72 K/uL (1.40-6.50); Neutrophils % (auto) 60.1 %; Platelet Count 142 K/uL (130-400); RDW Coefficient of Variation 14.4 % (11.5-14.5); RDW Standard Deviation 46.2 fL (36.4-46.3); Red Blood Count 4.46 M/uL (4.70-6.10); White Blood Count 6.19 K/ul (4.8-10.8)
[2023-09-20 02:45] LABS: BUN Creatinine Ratio 17.3 (10-20); Creatinine Clr Calc Pharmacy 64.2 ml/min; Est GFR (African American) 50.9 ml/min; Est GFR (Non-African American) 43.9 ml/min; Potassium 4.2 mmol/L (3.5-5.1)
--- NOTE | 2023-09-20 06:24 | Electrocardiogram Report ---
Test Reason : Blood Pressure : / mmHG Vent. Rate : 083 BPM Atrial Rate : 000 BPM P-R Int : 000 ms QRS Dur : 180 ms QT Int : 434 ms P-R-T Axes : 000 108 -02 degrees QTc Int : 509 ms Poor data quality, interpretation may be adversely affected Atrial fibrillation Right bundle branch block Possible Inferior infarct , age undetermined Abnormal ECG When compared with ECG of 12-SEP-2023 10:37, No significant change Confirmed by Kevin Sandhu ([id number]) on 09/20/2023 6:24:14 AM Referred By: REFERRED SELF Confirmed By:Kevin Sandhu
[2023-09-20 07:47] LABS: Estimated Average Glucose 148 mg/dl; Hemoglobin A1C 6.8 % (4.5-5.6)
[2023-09-20] MEDS: LOSARTAN POTASSIUM 50 MG TAB PO SCH (08:24)
[2023-09-20] MEDS: ASPIRIN 81 MG ECTAB PO SCH (08:24)
[2023-09-20] MEDS: cloNIDine HCL 0.1 MG TAB PO SCH (12:02)
--- NOTE | 2023-09-20 13:04 | Hospitalist Progress Note ---
Date of Service September 20, 2023 Assessment & Plan (1) Hypertensive urgency: Plan: Blood pressure is now under better control Will continue clonidine 0.1 mg 3 times daily Also continue losartan 100 mg daily (2) (HFpEF) heart failure with preserved ejection fraction: Plan: BNP elevated at 231 on arrival, chest x-ray with pulmonary edema, severely elevated blood pressure and shortness of breath on admission Lasix 40 mg IV ordered but patient refuses diuretics as he says it makes his feet hurt Daily weights Last echocardiogram revealed LVEF at 55 to 60%, severe LVH, mild AI Heart healthy, low-sodium diet Starting Nitropaste and attempts at blood pressure control as above (3) Patient refuses to take medication: Plan: Despite HTN with SBP>220 and DBP>120, several nursing reports with patient refusal to take antihypertensives Refused IV hydralazine as he reports it makes his feet hurt too much Patient also refuses insulin and Lasix Multiple conversations regarding high blood pressure, and risks/benefits of medication refusal which can lead to [place], DVT/PE, stroke, and/or (4) Elevated troponin: Plan: Troponin 76-->51 on arrival, ECG with first-degree AV block, right bundle branch block, without ischemic changes Troponin elevated at baseline; suspect secondary to hypertensive urgency in the setting of severe LVH Continue telemetry monitoring (5) DM2 (diabetes mellitus, type 2): Plan: Last A1c at 6.6% on 06/08/2023 Glucose 211 on admission Patient is not on any diabetic medications, and has refused insulin in the past If patient is amenable, will trial loose SSI with target BSG range 110-140, CF 35, carb ratio 10 T2DM diet BSG ACHS Adjust regimen as needed AM A1c (6) Hypochondriacal neurosis: Plan: Patient has this unshakable belief that all his symptoms are due to Lyme disease This has been documented extensively in his medical records (7) Chronic kidney disease, stage 3a: Plan: BUN 27, creatinine 1.47 (around baseline), EGFR 49.4 Avoid nephrotoxic agents where possible Monitor daily BMPs if starting lasix Continue losartan (8) Ambulatory dysfunction: Plan: PT/OT evaluations appreciated Fall precautions (9) PAD (peripheral artery disease): Plan: Known PAD with nonhealing wounds on ankles, evaluated by vascular medicine and no intervention indicated Pulses are nonpalpable (10) Medical non-compliance: (11) Uncontrolled hypertension: Plan Disposition: Continue hospitalization, hopefully discharge in 24 hours Full code Heart healthy, low-sodium diet (1800 mL fluid restriction) VTE PPx: Lovenox 40 mg SQ q24h Admission and Anticipated Discharge Date Admission Date: September 19, 2023 Subjective Patient seen and examined, believes all his medical symptoms are due to Lyme disease. He is convinced beyond doubt that he has Lyme's disease. Review of Systems Review of Systems: All systems reviewed are negative, apart from the ones contained in the history. Physical Exam Physical Exam: The patient is awake, alert and oriented 3, well developed and well nourished, normocephalic and atraumatic, lying in bed and in no acute distress. HEENT--PERRL, EOMI, mucous membranes and oropharynx mildly dry Neck--supple. No JVD. No bruits. Thyroid normal, trachea midline, no adenopathy. Heart--normal S1 and S2. No murmurs, rubs or gallops. Lungs--clear bilaterally, no respiratory distress, no accessory muscle use. Abdomen--normal bowel sounds and soft. Extremities--no cyanosis or clubbing. No edema. Dermatologic--normal skin turgor, normal color, no abnormal lymph nodes, no rash. Neurologic--cranial nerves II through XII grossly intact. Rheumatologic--normal range of motion. Psychiatric--normal affect. Results & Data Results & Data Vital Signs (Past 12 Hours) Vital Signs Temp Pulse Resp BP Pulse Ox O2 Del Method 09/20/23 11:26 97 09/20/23 11:24 98.1 F 55 L 18 138/96 95 Room Air 09/20/23 08:00 144/93 H 09/20/23 07:32 97.3 F L 57 L 16 97 Room Air 09/20/23 02:40 97.5 F L 55 L 18 184/86 H 97 Room Air PG Care Time/CCT Total # of Minutes Spent Total Time Spent with Patient: Total time spent is greater than 50% in coordination of care (as documented) at patient's floor/unit and/or counseling patient: Coding Level of Care Code 86079 SUB INP/OBS CARE 2/35MIN Diagnoses Hypertensive urgency I16.0 (HFpEF) heart failure with preserved ejection fraction I50.30 Patient refuses to take medication Z53.20 Elevated troponin R79.89 DM2 (diabetes mellitus, type 2) E11.9 Hypochondriacal neurosis F45.21 Chronic kidney disease, stage 3a N18.31 Ambulatory dysfunction R26.2 PAD (peripheral artery disease) I73.9 Medical non-compliance Z91.199 Uncontrolled hypertension I10 Time Spent (min) 35
[2023-09-21 06:32] LABS: Basophils # (auto) 0.03 K/uL (0.00-0.20); Basophils % (auto) 0.6 %; Eosinophils # (auto) 0.23 K/uL (0.00-0.50); Eosinophils % (auto) 4.6 %; Hematocrit (blood only) 36.4 % (42.0-52.0); Hemoglobin 11.8 g/dl (14.0-18.0); Immature Granulocytes # (auto) 0.01 K/uL (0.01-0.20); Immature Granulocytes % (auto) 0.2 %; Lymphocytes # (auto) 1.33 K/uL (1.20-3.40); Lymphocytes % (auto) 26.4 %; Mean Corpuscular Hemoglobin 28.2 pg (25.0-34.0); Mean Corpuscular Hgb Conc 32.4 g/dL (32.0-36.0); Mean Corpuscular Volume 86.9 fL (80.0-100.0); Monocytes % (auto) 11.9 %; Neutrophils # (auto) 2.84 K/uL (1.40-6.50); Neutrophils % (auto) 56.3 %; Platelet Count 139 K/uL (130-400); RDW Coefficient of Variation 14.4 % (11.5-14.5); RDW Standard Deviation 46.1 fL (36.4-46.3); Red Blood Count 4.19 M/uL (4.70-6.10); White Blood Count 5.04 K/ul (4.8-10.8)
[2023-09-21 07:13] LABS: Calcium 8.7 mg/dl (8.6-10.3); Potassium 4.3 mmol/L (3.5-5.1)
[2023-09-21 07:19] LABS: BUN Creatinine Ratio 21.3 (10-20); Creatinine Clr Calc Pharmacy 64.9 ml/min; Est GFR (African American) 51.6 ml/min; Est GFR (Non-African American) 44.5 ml/min
--- NOTE | 2023-09-21 12:03 | Hospitalist Progress Note ---
Date of Service September 21, 2023 Assessment & Plan (1) Hypertensive urgency: Plan: Blood pressure is now under better control Will increase clonidine to 0.2 mg 3 times daily Also continue losartan 100 mg daily (2) (HFpEF) heart failure with preserved ejection fraction: Plan: BNP elevated at 231 on arrival, chest x-ray with pulmonary edema, severely elevated blood pressure and shortness of breath on admission Lasix 40 mg IV ordered but patient refuses diuretics as he says it makes his feet hurt Daily weights Last echocardiogram revealed LVEF at 55 to 60%, severe LVH, mild AI Heart healthy, low-sodium diet Starting Nitropaste and attempts at blood pressure control as above (3) Patient refuses to take medication: Plan: Despite HTN with SBP>220 and DBP>120, several nursing reports with patient refusal to take antihypertensives Refused IV hydralazine as he reports it makes his feet hurt too much Patient also refuses insulin and Lasix Multiple conversations regarding high blood pressure, and risks/benefits of medication refusal which can lead to [place], DVT/PE, stroke, and/or (4) Elevated troponin: Plan: Troponin 76-->51 on arrival, ECG with first-degree AV block, right bundle branch block, without ischemic changes Troponin elevated at baseline; suspect secondary to hypertensive urgency in the setting of severe LVH Continue telemetry monitoring (5) DM2 (diabetes mellitus, type 2): Plan: Last A1c at 6.6% on 06/08/2023 Glucose 211 on admission Patient is not on any diabetic medications, and has refused insulin in the past If patient is amenable, will trial loose SSI with target BSG range 110-140, CF 35, carb ratio 10 T2DM diet BSG ACHS Adjust regimen as needed AM A1c (6) Hypochondriacal neurosis: Plan: Patient has this unshakable belief that all his symptoms are due to Lyme disease This has been documented extensively in his medical records (7) Chronic kidney disease, stage 3a: Plan: BUN 27, creatinine 1.47 (around baseline), EGFR 49.4 Avoid nephrotoxic agents where possible Monitor daily BMPs if starting lasix Continue losartan (8) Ambulatory dysfunction: Plan: PT/OT evaluations appreciated Fall precautions (9) PAD (peripheral artery disease): Plan: Known PAD with nonhealing wounds on ankles, evaluated by vascular medicine and no intervention indicated Pulses are nonpalpable (10) Medical non-compliance: (11) Uncontrolled hypertension: Plan Disposition: Continue hospitalization, hopefully discharge in 24 hours To a personal retirement Full code Heart healthy, low-sodium diet (1800 mL fluid restriction) VTE PPx: Lovenox 40 mg SQ q24h Admission and Anticipated Discharge Date Admission Date: September 19, 2023 Subjective Patient seen and examined, Still complains of some dry cough Review of Systems Review of Systems: All systems reviewed are negative, apart from the ones contained in the history. Physical Exam Physical Exam: The patient is awake, alert and oriented 3, well developed and well nourished, normocephalic and atraumatic, lying in bed and in no acute distress. HEENT--PERRL, EOMI, mucous membranes and oropharynx mildly dry Neck--supple. No JVD. No bruits. Thyroid normal, trachea midline, no sarita nopathy. Heart--normal S1 and S2. No murmurs, rubs or gallops. Lungs--clear bilaterally, no respiratory distress, no accessory muscle use. Abdomen--normal bowel sounds and soft. Extremities--no cyanosis or clubbing. No edema. Dermatologic--normal skin turgor, normal color, no abnormal lymph nodes, no rash. Neurologic--cranial nerves II through XII grossly intact. Rheumatologic--normal range of motion. Psychiatric--normal affect. Results & Data Results & Data Vital Signs (Past 12 Hours) Vital Signs Temp Pulse Resp BP Pulse Ox O2 Del Method 09/21/23 09:51 Room Air 09/21/23 07:49 97.5 F L 55 L 18 170/90 H 98 Room Air 09/21/23 03:03 97.7 F 51 L 17 137/73 96 Room Air PG Care Time/CCT Total # of Minutes Spent Total Time Spent with Patient: Total time spent is greater than 50% in coordination of care (as documented) at patient's floor/unit and/or counseling patient: Coding Level of Care Code 07929 SUB INP/OBS CARE 2/35MIN Diagnoses Hypertensive urgency I16.0 (HFpEF) heart failure with preserved ejection fraction I50.30 Patient refuses to take medication Z53.20 Elevated troponin R79.89 DM2 (diabetes mellitus, type 2) E11.9 Hypochondriacal neurosis F45.21 Chronic kidney disease, stage 3a N18.31 Ambulatory dysfunction R26.2 PAD (peripheral artery disease) I73.9 Medical non-compliance Z91.199 Uncontrolled hypertension I10 Time Spent (min) 35
[2023-09-21] MEDS: POLYETHYLENE (MIRALAX) 17 GM PACK PO SCH (12:31)
[2023-09-21] MEDS: cloNIDine HCL 0.1 MG TAB PO SCH (13:47)
[2023-09-22] MEDS: CHECK CLONIDINE PATCH PLACEMENT SCH (08:58)
[2023-09-22] MEDS: guaiFENesin/DEXTROM SYRUP 200MG/20MG 10ML UDC PO PRN (09:47)
[2023-09-22 10:13] LABS: Basophils # (auto) 0.04 K/uL (0.00-0.20); Eosinophils # (auto) 0.13 K/uL (0.00-0.50); Eosinophils % (auto) 3.1 %; Hematocrit (blood only) 36.6 % (42.0-52.0); Hemoglobin 12.2 g/dl (14.0-18.0); Immature Granulocytes # (auto) 0.01 K/uL (0.01-0.20); Immature Granulocytes % (auto) 0.2 %; Lymphocytes % (auto) 23.9 %; Mean Corpuscular Hemoglobin 28.3 pg (25.0-34.0); Mean Corpuscular Hgb Conc 33.3 g/dL (32.0-36.0); Mean Corpuscular Volume 84.9 fL (80.0-100.0); Mean Platelet Volume 11.3 fL (9.4-12.4); Monocytes % (auto) 9.5 %; Neutrophils # (auto) 2.61 K/uL (1.40-6.50); Neutrophils % (auto) 62.3 %; Platelet Count 134 K/uL (130-400); RDW Coefficient of Variation 14.2 % (11.5-14.5); RDW Standard Deviation 43.7 fL (36.4-46.3); Red Blood Count 4.31 M/uL (4.70-6.10); White Blood Count 4.19 K/ul (4.8-10.8)
[2023-09-22 10:14] LABS: BUN Creatinine Ratio 21.9 (10-20); Calcium 8.9 mg/dl (8.6-10.3); Creatinine Clr Calc Pharmacy 68.5 ml/min; Est GFR (African American) 55.4 ml/min; Est GFR (Non-African American) 47.8 ml/min; Potassium 4.2 mmol/L (3.5-5.1)
--- NOTE | 2023-09-22 11:17 | Hospitalist Progress Note ---
Date of Service September 22, 2023 Assessment & Plan (1) Hypertensive urgency: Plan: Blood pressure still poorly controlled Will increase clonidine to 0.2 mg 3 times daily, Patient now also willing to think clonidine patch Also continue losartan 100 mg daily (2) (HFpEF) heart failure with preserved ejection fraction: Plan: BNP elevated at 231 on arrival, chest x-ray with pulmonary edema, severely elev ated blood pressure and shortness of breath on admission Lasix 40 mg IV ordered but patient refuses diuretics as he says it makes his feet hurt Daily weights Last echocardiogram revealed LVEF at 55 to 60%, severe LVH, mild AI Heart healthy, low-sodium diet Starting Nitropaste and attempts at blood pressure control as above (3) Patient refuses to take medication: Plan: Despite HTN with SBP>220 and DBP>120, several nursing reports with patient refusal to take antihypertensives Refused IV hydralazine as he reports it makes his feet hurt too much, Also does not like hydrochlorothiazide Patient also refuses insulin and Lasix Multiple conversations regarding high blood pressure, and risks/benefits of medication refusal which can lead to PR, DVT/PE, stroke, and/or Looking through his records a send this is a recurring issue if and clearly documented in the notes of assistant analyst (4) Elevated troponin: Plan: Troponin 76-->51 on arrival, ECG with first-degree AV block, right bundle branch block, without ischemic changes Troponin elevated at baseline; suspect secondary to hypertensive urgency in the setting of severe LVH Continue telemetry monitoring (5) DM2 (diabetes mellitus, type 2): Plan: Last A1c at 6.6% on 06/08/2023 Glucose 211 on admission Patient is not on any diabetic medications, and has refused insulin in the past If patient is amenable, will trial loose SSI with target BSG range 110-140, CF 35, carb ratio 10 T2DM diet BSG ACHS Adjust regimen as needed AM A1c (6) Hypochondriacal neurosis: Plan: Patient has this unshakable belief that all his symptoms are due to Lyme disease This has been documented extensively in his medical records (7) Chronic kidney disease, stage 3a: Plan: BUN 27, creatinine 1.47 (around baseline), EGFR 49.4 Avoid nephrotoxic agents where possible Monitor daily BMPs if starting lasix Continue losartan (8) Ambulatory dysfunction: Plan: PT/OT evaluations appreciated Fall precautions (9) PAD (peripheral artery disease): Plan: Known PAD with nonhealing wounds on ankles, evaluated by vascular medicine and no intervention indicated Pulses are nonpalpable (10) Medical non-compliance: (11) Uncontrolled hypertension: Plan Disposition: Continue hospitalization, hopefully discharge in 24 hours To a personal half-way Full code Heart healthy, low-sodium diet (1800 mL fluid restriction) VTE PPx: Lovenox 40 mg SQ q24h Admission and Anticipated Discharge Date Admission Date: September 19, 2023 Subjective Patient seen and examined, Still complains of some dry cough Review of Systems Review of Systems: All systems reviewed are negative, apart from the ones contained in the history. Physical Exam Physical Exam: The patient is awake, alert and oriented 3, well developed and well nourished, normocephalic and atraumatic, lying in bed and in no acute distress. HEENT--PERRL, EOMI, mucous membranes and oropharynx mildly dry Neck--supple. No JVD. No bruits. Thyroid normal, trachea midline, no adenopathy. Heart--normal S1 and S2. No murmurs, rubs or gallops. Lungs--clear bilaterally, no respiratory distress, no accessory muscle use. Abdomen--normal bowel sounds and soft. Extremities--no cyanosis or clubbing. No edema. Dermatologic--normal skin turgor, normal color, no abnormal lymph nodes, no rash. Neurologic--cranial nerves II through XII grossly intact. Rheumatologic--normal range of motion. Psychiatric--normal affect. Results & Data Results & Data Vital Signs (Past 12 Hours) Vital Signs Temp Pulse Resp BP BP Pulse Ox O2 Del Method 09/22/23 07:52 97.9 F 49 L 19 204/93 H 98 Room Air 09/22/23 03:08 97.5 F L 42 L 18 168/90 H 98 Room Air PG Care Time/CCT Total # of Minutes Spent Total Time Spent with Patient: Total time spent is greater than 50% in coordination of care (as documented) at patient's floor/unit and/or counseling patient: Coding Level of Care Code 48146 SUB INP/OBS CARE 2/35MIN Diagnoses Hypertensive urgency I16.0 (HFpEF) heart failure with preserved ejection fraction I50.30 Patient refuses to take medication Z53.20 Elevated troponin R79.89 DM2 (diabetes mellitus, type 2) E11.9 Hypochondriacal neurosis F45.21 Chronic kidney disease, stage 3a N18.31 Ambulatory dysfunction R26.2 PAD (peripheral artery disease) I73.9 Medical non-compliance Z91.199 Uncontrolled hypertension I10 Time Spent (min) 35
--- NOTE | 2023-09-22 15:28 | Psychiatric Consultation ---
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 Regardless of the etiology he doesn't present with any prominent primary psychiatric symptoms to suggest a major mood or psychotic disorder impacting his decision making and while unwise his choices are rooted in consistent beliefs about impacts of alternative medicine and his values and treatment preferences for which he has decision making capacity to refuse medications. He adamantly denies any SI nor depression contributing to his refusal. Overall, I spent a total of 45 minutes with this case including review of chart records, review of labwork, direct evaluation of the patient at bedside, counseling the patient, discussion of the patient with the hospitalist provider, discussion with the psychiatric liason during clinical rounds and documentation in the electronic health record. (1) Nonadherence to medication: (2) Hypertension: Hypertension type: unspecified Qualified Code(s): I10 - Essential (primary) hypertension Plan -No further interventions from psychiatric standpoint -Continue with motivational interviewing and finding common ground around interventions he is willing to accept -May do well with primary care provider who also offers functional/naturopathic medical approach with whom he may be more willing to align with and trust in terms of then also accepting medications for his HTN and diabetes Psych History Identifying Data Malcolm is a 63 yo man with a history of T2DM, neuropathy, CVA, B12 deficiency, HTN, PAD, dyslipidemia, ambulatory dysfunction, chronic wound, FTT, and history AV block admitted for shortness of breath and found to have significant hypertension. Psychiatry consulted for "refusal of meds". Chief Complaint "I have a lot of foot pain from a mycoplasma infection". History of Present Illness Malcolm has been refusing certain medical interventions since admission including any insulin coverage for his elevated blood sugars and declining certain anti-hypertensives. He has been accepting losartan and today agreed to start a clonidine patch. In meeting with me he reports his main concern is his persistent foot pain, which he does not believe is related to diabetic neuropathy, reporting that he has idiopathic neuropathy. He states his blood pressure has been treated but focus has not been on his foot pain issue. Patient suspects foot pain may be tied to mycoplasma infection as he had testing in [place] indicating 77% chance of mycoplasma proliferation. Patient denies any psychiatric history of schizophrenia, bipolar disorder, depression or anxiety. He reports history of being treated for Lyme disease. Patient also endorses having had , dried ticks in his hair in the past to emphasize his past exposure while living in [place] in an area with a high tick population. Patient has declined hydrochlorothiazide and motrin in the past as they exacerbated his foot pain. He denies that any medication refusal were due to lack of desire to be alive or ambivalence about dying. He adamantly denies any SI. Denies any prior attempts. He expresses frustration with his medical care and is seeking help for his foot pain issue. He states his foot pain has improved slightly but is still bothersome. Additional history per psych liason note on 09/22/2023: "Met with patient for consult service. Patient awake, sitting in bed with brother (Joshua) at bedside. Brother Patient is A&Ox3, calm and pleasant. He has soft, raspy voice and garbled at times. He is very talkative, tangential and speaks of irrelevant things; making it difficult to gather pertinent history. He requires a lot of redirection to stay on topic. Patient reports his raspy voice is related to "walking pneumonia" and his symptoms started ~1.5 years ago. He remains consistent that he has lyme's disease and would like to have a rationale for his neuropathy. He acknowledges having diabetes and hypertension but feels medications that are offered can be more harmful than beneficial. He feels he has not found the right physician that has the knowledge base to explain some of his symptoms. Patient reports "I believe in western medication, medicine, and persian medicine. I also like essential oils but don't know as much about those. I have a lot of knowledge about animal science, so I know enough that when I ask questions, it can offend the doctors". He has an odd way of thinking but presents with reasonable, organized answers. Does not present delusional or paranoid like. Patient does not present with any other symptoms consistent with tosha. He denies significant sleep issues, appetite is good. He denies psych history, including inpatient treatment or suicide attempts. He can recall a time of being upset as a teenager after a breakup and some sadness when he got 15 years ago, denies ever having suicidal thoughts with intent. Seen a therapist for a short time after divorce. Patient is from [place], then moved to [place] and lived there for ~ 40 years. Patient got 15 years ago and he has children. End of last year, patient's brother asked him to move here since patient was having financial issues and difficulty heating his home. Brother reports his is no longer willing to have patient living in their home. Patient does not contribute to household expenses. Patient reports he is able to care for himself, has some difficulty with stairs. He get's "mom's meals". There are no acute psychiatric needs identified at this time. Patient is encouraged to alert staff if any needs/concerns arise." Allergies Allergy/AdvReac Type Severity Reaction Status Date / Time doxycycline Allergy Mild URTICARIA Verified 09/12/23 11:48 Home Medications Medication Instructions Recorded Confirmed Type Danii Supplement 1 cap PO DAILY 08/23/23 09/19/23 History minoxidil 2.5 mg tablet 2.5 mg PO Q OTHER DAY 08/23/23 09/19/23 History nystatin 100,000 unit/gram topical 1 applic topical DAILY PRN flare 09/12/23 09/19/23 History powder (Nyamyc) under skin folds isosorbide mononitrate 30 mg 30 mg PO BID #60 tabs 09/15/23 09/19/23 Rx tablet,extended release 24 hr losartan 50 mg tablet 100 mg (2 x 50 mg) PO DAILY #60 09/15/23 09/19/23 Rx tabs pregabalin 100 mg capsule 100 mg PO BID #60 caps 09/15/23 09/19/23 Rx Patient History Medical History 1st degree AV block Medical non-compliance Nihilism Uncontrolled hypertension Tachycardia H/o Lyme disease Social History Smoking Status: Never smoker Hx Alcohol Use: No Hx Substance Use: No Preferred Language: Portuguese Communication Ability: Effective Visual Impairment: No Limitations Hearing Ability: Normal Senior Test Analyst Required: No Beliefs That Will Affect Care: None marital status: Unknown Current Living Situation: Family Current Living Situation Comment: living with brother and sister in law current occupational status: unemployed Other Information That Helps Us Care for You: No Feels Safe at Home: Yes caffeine: Yes during the past year weight has: remained stable Assistive Devices: Walker Physical Exam Psychiatric: Orientation: alert and oriented x 3 Apperance: appropriately dressed and appropriately groomed Eye Contact: good eye contact Motor Behavior: no abnormal motor movements Speech: normal rate/rhythm/volume of speech Affect: euthymic affect Mood: no depressed mood, no anxious mood and no irritable mood Thought Process: + tangential thought process Thought Content: + preoccupation and reality based without delusions Suicidal Thoughts: denies suicidal thoughts, denies suicidal plan and denies suicidal intent Homicidal Thoughts: denies homicidal thoughts Hallucinations: no auditory hallucinations and no visual hallucinations Cognition: recent memory grossly intact, remote memory grossly intact, attention grossly intact and language grossly intact Estimated Intelligence: consistent with education level Insight: + limited insight Judgment: + limited judgement Vital Signs (Past 24 Hours): Last Vital Signs Temp 36.6 C 09/22/23 11:32 Pulse 41 L 09/22/23 15:19 Resp 19 09/22/23 11:32 BP 184/89 H 09/22/23 13:29 Pulse Ox 97 09/22/23 11:32 O2 Del Method Room Air 09/22/23 11:32 Results & Data (PSY) Medications Administered Aspirin (Aspirin 81 Mg Ectab) 81 mg PO QAM [facility] Stop: 10/20/23 08:59 Last Admin: 09/22/23 09:01 Dose: 81 mg Documented By: Admin: 09/21/23 09:10 Dose: 81 mg Documented By: Admin: 09/20/23 08:24 Dose: 81 mg Documented By: MTP Clonidine HCl (Clonidine Hcl 0.1 Mg Tab) 0.2 mg PO TID [facility] Stop: 10/21/23 13:59 Last Admin: 09/22/23 13:40 Dose: 0.2 mg Documented By: Admin: 09/22/23 09:02 Dose: 0.2 mg Documented By: Admin: 09/21/23 21:06 Dose: 0.2 mg Documented By: RADAR MECHANIC Admin: 09/21/23 13:47 Dose: 0.2 mg Documented By: AMB Clonidine HCl (Clonidine Hcl 0.2 Mg/24 Hr Transderm Sys) 1 patch TD Q7D [facility] Stop: 10/22/23 07:59 Last Admin: 09/22/23 08:58 Dose: 1 patch Documented By: CYNTHIA Enoxaparin Sodium (Enoxaparin Inj 40 Mg/0.4 Ml Syr) 40 mg SQ Q24H [facility] Stop: 10/19/23 20:59 Last Admin: 09/21/23 21:07 Dose: 40 mg Documented By: RADAR MECHANIC Admin: 09/20/23 20:04 Dose: 40 mg Documented By: Admin: 09/19/23 20:03 Dose: 40 mg Documented By: DAILY Guaifenesin/Dextromethorphan (Guaifenesin/Dextrom Syrup 200mg/20mg 10ml Udc) 10 ml PO Q6H PRN PRN Reason: Cough Stop: 10/21/23 09:55 Last Admin: 09/22/23 09:47 Dose: 10 ml Documented By: CYNTHIA Insulin Aspart (Insulin Aspart Per Unit Charge) 0 units SC ACHS [facility] Stop: 10/19/23 17:44 Last Admin: 09/22/23 12:31 Dose: Not Given Documented By: Admin: 09/22/23 08:16 Dose: Not Given Documented By: Admin: 09/21/23 21:13 Dose: Not Given Documented By: RADAR MECHANIC Admin: 09/21/23 15:59 Dose: Not Given Documented By: Admin: 09/21/23 12:31 Dose: Not Given Documented By: Admin: 09/21/23 07:59 Dose: Not Given Documented By: Admin: 09/20/23 21:19 Dose: Not Given Documented By: RADAR MECHANIC Admin: 09/20/23 21:18 Dose: Not Given Documented By: RADAR MECHANIC Admin: 09/20/23 14:06 Dose: 3 units Documented By: MTP Co-signed By: GPF Admin: 09/20/23 08:24 Dose: Not Given Documented By: Admin: 09/19/23 21:07 Dose: Not Given Documented By: Admin: 09/19/23 18:38 Dose: Not Given Documented By: KTS Losartan Potassium (Losartan Potassium 50 Mg Tab) 100 mg PO DAILY [facility] Stop: 10/20/23 08:59 Last Admin: 09/22/23 09:03 Dose: 100 mg Documented By: Admin: 09/21/23 09:10 Dose: 100 mg Documented By: Admin: 09/20/23 08:24 Dose: 100 mg Documented By: RAMANDEEP Miscellaneous (Remove Clonidine Patch) 1 each N/A CQWK [facility] Stop: 10/22/23 07:59 Last Admin: 09/22/23 08:58 Dose: Not Given Documented By: OXu Miscellaneous (Check Clonidine Patch Placement) 1 each N/A QS [facility] Stop: 10/22/23 07:59 Last Admin: 09/22/23 08:58 Dose: 1 each Documented By: CYNTHIA Nitroglycerin (Nitroglycerin 2% Ointment 30gm Tube) 0.5 inch EXT Q6H [facility] Stop: 10/19/23 19:29 Last Admin: 09/22/23 13:34 Dose: 0.5 inch Documented By: Admin: 09/22/23 08:57 Dose: 0.5 inch Documented By: Admin: 09/22/23 01:21 Dose: 0.5 inch Documented By: Admin: 09/21/23 21:13 Dose: 0.5 inch Documented By: Admin: 09/21/23 13:47 Dose: 0.5 inch Documented By: Admin: 09/21/23 09:10 Dose: 0.5 inch Documented By: Admin: 09/21/23 01:52 Dose: 0.5 inch Documented By: RADAR MECHANIC Admin: 09/20/23 20:04 Dose: 0.5 inch Documented By: RADAR MECHANIC Admin: 09/20/23 14:07 Dose: 0.5 inch Documented By: Admin: 09/20/23 08:28 Dose: 0.5 inch Documented By: Admin: 09/20/23 02:29 Dose: 0.5 inch Documented By: Admin: 09/19/23 20:03 Dose: 0.5 inch Documented By: DAILY Polyethylene Glycol (Polyethylene (Miralax) 17 Gm Pack) 17 gm PO DAILY [facility] Stop: 10/21/23 09:59 Last Admin: 09/22/23 09:04 Dose: 17 gm Documented By: OXu Admin: 09/21/23 12:31 Dose: 17 gm Documented By: AAMIR Pregabalin (Pregabalin 100 Mg Cap) 100 mg PO HS [facility] Stop: 10/19/23 20:59 Last Admin: 09/21/23 21:07 Dose: 100 mg Documented By: RADAR MECHANIC Admin: 09/20/23 20:03 Dose: 100 mg Documented By: Admin: 09/19/23 20:04 Dose: 100 mg Documented By: DAILY Coding Level of Care Code 88256 IN/OBS CONSULT LVL 3,45M Diagnoses Nonadherence to medication Z91.148 Hypertension, unspecified type I10 Hypertension type: unspecified
[2023-09-23] MEDS: CEROVITE ADV FORMULA TAB PO SCH (11:45)
--- NOTE | 2023-09-23 13:05 | Hospitalist Progress Note ---
Date of Service September 23, 2023 Assessment & Plan (1) Hypertensive urgency: Plan: Blood pressure Now under better control, patient is willing to take clonidine which has been controlling his blood pressure better now Will increase clonidine to 0.2 mg 3 times daily, Also continue clonidine patch Also continue losartan 100 mg daily (2) (HFpEF) heart failure with preserved ejection fraction: Plan: BNP elevated at 231 on arrival, chest x-ray with pulmonary edema, severely elevated blood pressure and shortness of breath on admission Lasix 40 mg IV ordered but patient refuses diuretics as he says it makes his feet hurt Daily weights Last echocardiogram revealed LVEF at 55 to 60%, severe LVH, mild AI Heart healthy, low-sodium diet Starting Nitropaste and attempts at blood pressure control as above (3) Patient refuses to take medication: Plan: Patient has a lot of reservations about medicines. But has agreed to take some Refused IV hydralazine as he reports it makes his feet hurt too much, Also does not like hydrochlorothiazide Patient also refuses insulin and Lasix Multiple conversations regarding high blood pressure, and risks/benefits of medication refusal which can lead to [place], DVT/PE, stroke, and/or Looking through his records a send this is a recurring issue if and clearly documented in the notes of regional refrigerated cdl truck driver (4) Elevated troponin: Plan: Troponin 76-->51 on arrival, ECG with first-degree AV block, right bundle branch block, without ischemic changes Troponin elevated at baseline; suspect secondary to hypertensive urgency in the setting of severe LVH Continue telemetry monitoring (5) DM2 (diabetes mellitus, type 2): Plan: Last A1c at 6.6% on 06/08/2023 Glucose 211 on admission Patient is not on any diabetic medications, and has refused insulin in the past If patient is amenable, will trial loose SSI with target BSG range 110-140, CF 35, carb ratio 10 T2DM diet BSG ACHS Adjust regimen as needed AM A1c (6) Hypochondriacal neurosis: Plan: Patient has this unshakable belief that all his symptoms are due to Lyme disease This has been documented extensively in his medical records (7) Chronic kidney disease, stage 3a: Plan: BUN 27, creatinine 1.47 (around baseline), EGFR 49.4 Avoid nephrotoxic agents where possible Monitor daily BMPs if starting lasix Continue losartan (8) Ambulatory dysfunction: Plan: PT/OT evaluations appreciated Fall precautions (9) PAD (peripheral artery disease): Plan: Known PAD with nonhealing wounds on ankles, evaluated by vascular medicine and no intervention indicated Pulses are nonpalpable (10) Medical non-compliance: (11) Uncontrolled hypertension: Plan Disposition: Continue hospitalization, Social work has sent referrals, awaiting feedback Full code Heart healthy, low-sodium diet (1800 mL fluid restriction) VTE PPx: Lovenox 40 mg SQ q24h Admission and Anticipated Discharge Date Admission Date: September 19, 2023 Subjective Patient seen and examined, Still complains of some dry cough Review of Systems Review of Systems: All systems reviewed are negative, apart from the ones contained in the history. Physical Exam Physical Exam: The patient is awake, alert and oriented 3, well developed and well nourished, normocephalic and atraumatic, lying in bed and in no acute distress. HEENT--PERRL, EOMI, mucous membranes and oropharynx mildly dry Neck--supple. No JVD. No bruits. Thyroid normal, trachea midline, no adenopathy. Heart--normal S1 and S2. No murmurs, rubs or gallops. Lungs--clear bilaterally, no respiratory distress, no accessory muscle use. Abdomen--normal bowel sounds and soft. Extremities--no cyanosis or clubbing. No edema. Dermatologic--normal skin turgor, normal color, no abnormal lymph nodes, no rash. Neurologic--cranial nerves II through XII grossly intact. Rheumatologic--normal range of motion. Psychiatric--normal affect. Results & Data Results & Data Vital Signs (Past 12 Hours) Vital Signs Temp Pulse Pulse Resp BP BP Pulse Ox 09/23/23 11:35 97.3 F L 42 L 18 165/78 H 95 09/23/23 08:00 41 L 09/23/23 07:56 97.7 F 40 L 18 193/91 H 97 09/23/23 03:26 97.7 F 41 L 20 169/87 H 96 O2 Del Method 09/23/23 11:35 Room Air 09/23/23 08:00 09/23/23 07:56 Room Air 09/23/23 03:26 Room Air PG Care Time/CCT Total # of Minutes Spent Total Time Spent with Patient: Total time spent is greater than 50% in coordination of care (as documented) at patient's floor/unit and/or counseling patient: Coding Level of Care Code 53322 SUB INP/OBS CARE 2/35MIN Diagnoses Hypertensive urgency I16.0 (HFpEF) heart failure with preserved ejection fraction I50.30 Patient refuses to take medication Z53.20 Elevated troponin R79.89 DM2 (diabetes mellitus, type 2) E11.9 Hypochondriacal neurosis F45.21 Chronic kidney disease, stage 3a N18.31 Ambulatory dysfunction R26.2 PAD (peripheral artery disease) I73.9 Medical non-compliance Z91.199 Uncontrolled hypertension I10 Time Spent (min) 35
--- NOTE | 2023-09-24 12:41 | Hospitalist Progress Note ---
Date of Service September 24, 2023 Assessment & Plan (1) Hypertensive urgency: Plan: Blood pressure Now under better control, patient is willing to take clonidine which has been controlling his blood pressure better now Will continue clonidine to 0.2 mg 3 times daily, Also continue clonidine patch Also continue losartan 100 mg daily (2) (HFpEF) heart failure with preserved ejection fraction: Plan: BNP elevated at 231 on arrival, chest x-ray with pulmonary edema, severely elevated blood pressure and shortness of breath on admission Lasix 40 mg IV ordered but patient refuses diuretics as he says it makes his feet hurt Daily weights Last echocardiogram revealed LVEF at 55 to 60%, severe LVH, mild AI Heart healthy, low-sodium diet Starting Nitropaste and attempts at blood pressure control as above (3) Afib: Plan: EKG now shows A-fib with slow ventricular rhythm Previous EKGs only showed evidence of first-degree heart block Patient not on beta-doug or any medicine known to block the sinus node Will consult cardiology (4) Patient refuses to take medication: Plan: Patient has a lot of reservations about medicines. But has agreed to take some Refused IV hydralazine as he reports it makes his feet hurt too much, Also does not like hydrochlorothiazide Patient also refuses insulin and Lasix Multiple conversations regarding high blood pressure, and risks/benefits of medication refusal which can lead to [place], DVT/PE, stroke, and/or Looking through his records a send this is a recurring issue if and clearly documented in the notes of billing and quality technician (5) Elevated troponin: Plan: Troponin 76-->51 on arrival, ECG with first-degree AV block, right bundle branch block, without ischemic changes Troponin elevated at baseline; suspect secondary to hypertensive urgency in the setting of severe LVH Continue telemetry monitoring (6) DM2 (diabetes mellitus, type 2): Plan: Last A1c at 6.6% on 06/08/2023 Glucose 211 on admission Patient is not on any diabetic medications, and has refused insulin in the past If patient is amenable, will trial loose SSI with target BSG range 110-140, CF 35, carb ratio 10 T2DM diet BSG ACHS Adjust regimen as needed AM A1c (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 that all his symptoms are due to Lyme disease This has been documented extensively in his medical records (8) Chronic kidney disease, stage 3a: Plan: BUN 27, creatinine 1.47 (around baseline), EGFR 49.4 Avoid nephrotoxic agents where possible Monitor daily BMPs if starting lasix Continue losartan (9) Ambulatory dysfunction: Plan: PT/OT evaluations appreciated Fall precautions (10) PAD (peripheral artery disease): Plan: Known PAD with nonhealing wounds on ankles, evaluated by vascular medicine and no intervention indicated Pulses are nonpalpable (11) Medical non-compliance: (12) Uncontrolled hypertension: Plan Disposition: Continue hospitalization, Social work has sent referrals, awaiting feedback Full code Heart healthy, low-sodium diet (1800 mL fluid restriction) VTE PPx: Lovenox 40 mg SQ q24h Admission and Anticipated Discharge Date Admission Date: September 19, 2023 Subjective Patient seen and examined, Still complains of some dry cough Review of Systems Review of Systems: All systems reviewed are negative, apart from the ones contained in the history. Physical Exam Physical Exam: The patient is awake, alert and oriented 3, well developed and well nourished, normocephalic and atraumatic, lying in bed and in no acute distress. HEENT--PERRL, EOMI, mucous membranes and oropharynx mildly dry Neck--supple. No JVD. No bruits. Thyroid normal, trachea midline, no adenopathy. Heart--normal S1 and S2. No murmurs, rubs or gallops. Lungs--clear bilaterally, no respiratory distress, no accessory muscle use. Abdomen--normal bowel sounds and soft. Extremities--no cyanosis or clubbing. No edema. Dermatologic--normal skin turgor, normal color, no abnormal lymph nodes, no rash. Neurologic--cranial nerves II through XII grossly intact. Rheumatologic--normal range of motion. Psychiatric--normal affect. Results & Data Results & Data Vital Signs (Past 12 Hours) Vital Signs Temp Pulse Pulse Pulse Resp BP BP 09/24/23 12:00 97.3 F L 39 L 22 140/33 L 09/24/23 08:00 41 L 09/24/23 07:59 97.5 F L 44 L 14 188/94 H 09/24/23 01:17 41 L 154/84 H Pulse Ox O2 Del Method 09/24/23 12:00 97 Room Air 09/24/23 08:00 09/24/23 07:59 96 Room Air 09/24/23 01:17 PG Care Time/CCT Total # of Minutes Spent Total Time Spent with Patient: Total time spent is greater than 50% in coordination of care (as documented) at patient's floor/unit and/or counseling patient: Coding Level of Care Code 01026 SUB INP/OBS CARE 2/35MIN Diagnoses Hypertensive urgency I16.0 (HFpEF) heart failure with preserved ejection fraction I50.30 Afib I48.91 Patient refuses to take medication Z53.20 Elevated troponin R79.89 DM2 (diabetes mellitus, type 2) E11.9 Hypochondriacal neurosis F45.21 Chronic kidney disease, stage 3a N18.31 Ambulatory dysfunction R26.2 PAD (peripheral artery disease) I73.9 Medical non-compliance Z91.199 Uncontrolled hypertension I10 Time Spent (min) 35
--- NOTE | 2023-09-24 17:07 | Electrocardiogram Report ---
Test Reason : Blood Pressure : / mmHG Vent. Rate : 043 BPM Atrial Rate : 043 BPM P-R Int : 000 ms QRS Dur : 132 ms QT Int : 510 ms P-R-T Axes : 000 090 039 degrees QTc Int : 430 ms Sinus rhythm with 1st degree AV block Premature atrial complexes Rightward axis Right bundle branch block Abnormal ECG When compared with ECG of 19-SEP-2023 11:56, Vent. rate has decreased BY 40 BPM Confirmed by Jason Peña ([id number]) on 09/24/2023 5:06:33 PM Referred By: REFERRED SELF Confirmed By:German Peña
[2023-09-24] MEDS: bisacodyL 10 MG SUPP PR STA (18:44)
--- NOTE | 2023-09-24 19:17 | Cardiology Consultation ---
Date of Consultation September 24, 2023 Assessment & Plan (1) Uncontrolled hypertension: (2) 1st degree AV block: Plan 1. Hypertension: He has a history poorly controlled hypertension primarily due to perceived side effects from a variety of antihypertensive agents. This is limited the selection and efficacy. He has evidence of end-organ damage to include severe concentric left ventricular hypertrophy. Currently he appears to be using losartan, isosorbide mononitrate and clonidine. It seems he was tried on minoxidil recently but he reported in efficacy. He would be reasonable to try this medication again. I think he is experiencing some untoward side effects from high doses of clonidine. I would be in favor of stopping this medicine and trying another alpha doug, perhaps prazosin or doxazosin. 2. Atrial fibrillation: I do not think he has actually had atrial fibrillation. I think the irregularity noted on his EKG is simply a sinus bradycardia with PACs in a very prolonged [place] interval. I would not treat him for atrial fibrillation. 3. Bradycardia: I think his bradycardia is related to escalating doses of clonidine. Would be in favor of stopping the clonidine. He is known to have an element of conduction disease at baseline which appears to be worse currently. History of Present Illness Reason for Consultation: Atrial fibrillation, bradycardia Requesting Physician: Blair Attending Physician: Mariana Pinto MD History of Present Illness The patient is a 63-year-old gentleman with a history of hypertension and 1st degree AV block who was admitted for symptoms dyspnea. Most of his hospitalization has centered upon treatment for poorly controlled hypertension. During today's interview the only symptom the patient wished to discuss was his lower extremity pain. He felt that this was possibly related to mycoplasma infection and wanted some guidance regarding treatment. It seems that his ambulation is limited by leg pain but he was able to use the walker around the [place] today. He denies shortness of breath currently. His other complaints included constipation and dry mouth. It seems that he has had some difficulty with different antihypertensive agents over the years. Most of the agents seem to have cause worsening lower extremity pain by report. He has not been aware of any palpitations. He has some dizziness on occasion but this is not appear to be presyncope. Allergies Allergy/AdvReac Type Severity Reaction Status Date / Time doxycycline Allergy Mild URTICARIA Verified 09/12/23 11:48 Home Medications Medication Instructions Recorded Confirmed Type Danii Supplement 1 cap PO DAILY 08/23/23 09/19/23 History minoxidil 2.5 mg tablet 2.5 mg PO Q OTHER DAY 08/23/23 09/19/23 History nystatin 100,000 unit/gram topical 1 applic topical DAILY PRN flare 09/12/23 09/19/23 History powder (Nyamyc) under skin folds isosorbide mononitrate 30 mg 30 mg PO BID #60 tabs 09/15/23 09/19/23 Rx tablet,extended release 24 hr losartan 50 mg tablet 100 mg (2 x 50 mg) PO DAILY #60 09/15/23 09/19/23 Rx tabs pregabalin 100 mg capsule 100 mg PO BID #60 caps 09/15/23 09/19/23 Rx Patient History Medical History 1st degree AV block Medical non-compliance Nihilism Uncontrolled hypertension Tachycardia H/o Lyme disease Social History Smoking Status: Never smoker Hx Alcohol Use: No Hx Substance Use: No Preferred Language: Malawian Communication Ability: Effective Visual Impairment: No Limitations Hearing Ability: Normal Development Disability Specialist Required: No Beliefs That Will Affect Care: None marital status: Unknown Current Living Situation: Family Current Living Situation Comment: living with brother and sister in law current occupational status: unemployed Other Information That Helps Us Care for You: No Feels Safe at Home: Yes caffeine: Yes during the past year weight has: remained stable Assistive Devices: Walker Review of Systems Review of Systems: Per HPI. Physical Exam Physical Exam: The patient is alert and oriented. Mood and affect appeared normal. He answered all questions appropriately. HEENT: Pupils are equal and reactive to light and accommodation. Extraocular movements are intact. The sclerae are anicteric. Neuro: Cranial nerves intact Lungs: Clear to auscultation bilaterally. He has good air movement without use of accessory muscles. No rales wheezes or rhonchi. Cardiac: Bradycardia. Normal S1 and S2. No murmurs on examination. Pulses: The patient has palpable radial pulses bilaterally that are equal in intensity Extremities: Trophic changes of both lower extremities. Skin: I did not appreciate any rashes on examination today. Results & Data Vital Signs (Past 12 Hours) Vital Signs Temp Pulse Pulse Pulse Resp BP Pulse Ox 09/24/23 17:00 09/24/23 15:26 36.4 C L 41 L 16 190/91 H 95 09/24/23 12:00 36.3 C L 39 L 22 140/33 L 97 09/24/23 08:00 41 L 09/24/23 07:59 36.4 C L 44 L 14 188/94 H 96 O2 Del Method O2 Del Method 09/24/23 17:00 Room Air 09/24/23 15:26 Room Air 09/24/23 12:00 Room Air 09/24/23 08:00 09/24/23 07:59 Room Air Laboratory Results Abnormal Lab Results 09/23/23 09/24/23 09/24/23 20:17 07:48 11:23 POC Glucose 184 H 167 H 161 H 09/24/23 16:36 POC Glucose 109 H Diagnostic Findings Echocardiogram 03/22/2023: Normal LV systolic function with ejection fraction 55-60%. Severe LVH. Normal right ventricular size and function. Mild aortic regurgitation. PG Care Time/CCT Total # of Minutes Spent Total Time Spent with Patient: Total time spent is greater than 50% in coordination of care (as documented) at patient's floor/unit and/or counseling patient: Coding Level of Care Code 35799 INT INP/OBS CARE 3/75MIN Diagnoses Uncontrolled hypertension I10 1st degree AV block I44.0
[2023-09-25] MEDS: minoxidiL 2.5 MG TAB PO SCH (08:51)
[2023-09-25] MEDS ORDERED: minoxidiL 2.5 MG TAB PO SCH (09:00)
--- NOTE | 2023-09-25 10:40 | Hospitalist Progress Note ---
Date of Service September 25, 2023 Assessment & Plan (1) Hypertensive urgency: Plan: Blood pressure Now under better control, Has been taking clonidine however he became bradycardic and this was attributed to the clonidine. Will discontinue. Will resume his minoxidil 5 mg twice daily We will continue Only clonidine patch, stop the tablets Also continue losartan 100 mg daily (2) (HFpEF) heart failure with preserved ejection fraction: Plan: BNP elevated at 231 on arrival, chest x-ray with pulmonary edema, severely elevated blood pressure and shortness of breath on admission Lasix 40 mg IV ordered but patient refuses diuretics as he says it makes his feet hurt Daily weights Last echocardiogram revealed LVEF at 55 to 60%, severe LVH, mild AI Heart healthy, low-sodium diet Starting Nitropaste and attempts at blood pressure control as above (3) Afib: Plan: Per cardiology, not A-fib with first-degree heart block as seen in previous EKGs. Now worsened by the use of clonidine to control his blood pressure, this has been discontinued. (4) Patient refuses to take medication: Plan: Patient has a lot of reservations about medicines. But has agreed to take some Refused IV hydralazine as he reports it makes his feet hurt too much, Also does not like hydrochlorothiazide Patient also refuses insulin and Lasix Multiple conversations regarding high blood pressure, and risks/benefits of medication refusal which can lead to [place], DVT/PE, stroke, and/or Looking through his records a send this is a recurring issue if and clearly documented in the notes of telecom field technician (5) Elevated troponin: Plan: Troponin 76-->51 on arrival, ECG with first-degree AV block, right bundle branch block, without ischemic changes Troponin elevated at baseline; suspect secondary to hypertensive urgency in the setting of severe LVH Continue telemetry monitoring (6) DM2 (diabetes mellitus, type 2): Plan: Last A1c at 6.6% on 06/08/2023 Glucose 211 on admission Patient is not on any diabetic medications, and has refused insulin in the past If patient is amenable, will trial loose SSI with target BSG range 110-140, CF 35, carb ratio 10 T2DM diet BSG ACHS Adjust regimen as needed AM A1c (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 that all his symptoms are due to Lyme disease This has been documented extensively in his medical records (8) Chronic kidney disease, stage 3a: Plan: BUN 27, creatinine 1.47 (around baseline), EGFR 49.4 Avoid nephrotoxic agents where possible Monitor daily BMPs if starting lasix Continue losartan (9) Ambulatory dysfunction: Plan: PT/OT evaluations appreciated Fall precautions (10) PAD (peripheral artery disease): Plan: Known PAD with nonhealing wounds on ankles, evaluated by vascular medicine and no intervention indicated Pulses are nonpalpable (11) Medical non-compliance: (12) Uncontrolled hypertension: Plan Disposition: Continue hospitalization, Social work has sent referrals, awaiting feedback Full code Heart healthy, low-sodium diet (1800 mL fluid restriction) VTE PPx: Lovenox 40 mg SQ q24h Admission and Anticipated Discharge Date Admission Date: September 19, 2023 Subjective Patient seen and examined, Still complains of some dry cough,Which he attributes to mycoplasma Review of Systems Review of Systems: All systems reviewed are negative, apart from the ones contained in the history. Physical Exam Physical Exam: The patient is awake, alert and oriented 3, well developed and well nourished, normocephalic and atraumatic, lying in bed and in no acute distress. HEENT--PERRL, EOMI, mucous membranes and oropharynx mildly dry Neck--supple. No JVD. No bruits. Thyroid normal, trachea midline, no adenopathy. Heart--normal S1 and S2. No murmurs, rubs or gallops. Lungs--clear bilaterally, no respiratory distress, no accessory muscle use. Abdomen--normal bowel sounds and soft. Extremities--no cyanosis or clubbing. No edema. Dermatologic--normal skin turgor, normal color, no abnormal lymph nodes, no rash. Neurologic--cranial nerves II through XII grossly intact. Rheumatologic--normal range of motion. Psychiatric--normal affect. Results & Data Results & Data Vital Signs (Past 12 Hours) Vital Signs Temp Pulse Pulse Resp BP BP Pulse Ox 09/25/23 07:53 97.5 F L 43 L 16 196/96 H 98 09/25/23 07:00 38 L 09/25/23 02:55 97.7 F 41 L 18 145/77 H 98 09/25/23 01:36 97.3 F L 42 L 16 159/76 H 09/24/23 23:28 41 L 09/24/23 22:45 97.3 F L 41 L 19 207/99 H 99 O2 Del Method 09/25/23 07:53 Room Air 09/25/23 07:00 09/25/23 02:55 Room Air 09/25/23 01:36 09/24/23 23:28 09/24/23 22:45 Room Air PG Care Time/CCT Total # of Minutes Spent Total Time Spent with Patient: Total time spent is greater than 50% in coordination of care (as documented) at patient's floor/unit and/or counseling patient: Coding Level of Care Code 29249 SUB INP/OBS CARE 2/35MIN Diagnoses Hypertensive urgency I16.0 (HFpEF) heart failure with preserved ejection fraction I50.30 Afib I48.91 Patient refuses to take medication Z53.20 Elevated troponin R79.89 DM2 (diabetes mellitus, type 2) E11.9 Hypochondriacal neurosis F45.21 Chronic kidney disease, stage 3a N18.31 Ambulatory dysfunction R26.2 PAD (peripheral artery disease) I73.9 Medical non-compliance Z91.199 Uncontrolled hypertension I10 Time Spent (min) 35
[2023-09-25] MEDS: POLYETHYLENE (MIRALAX) 17 GM PACK PO SCH (20:22)
[2023-09-26 08:15] LABS: Hematocrit (blood only) 37.8 % (42.0-52.0); Hemoglobin 12.5 g/dl (14.0-18.0); Mean Corpuscular Hemoglobin 28.5 pg (25.0-34.0); Mean Corpuscular Hgb Conc 33.1 g/dL (32.0-36.0); Mean Corpuscular Volume 86.3 fL (80.0-100.0); Mean Platelet Volume 11.1 fL (9.4-12.4); Platelet Count 132 K/uL (130-400); RDW Standard Deviation 43.6 fL (36.4-46.3); Red Blood Count 4.38 M/uL (4.70-6.10); White Blood Count 5.25 K/ul (4.8-10.8)
[2023-09-26 08:30] LABS: BUN Creatinine Ratio 18.9 (10-20); Calcium 8.9 mg/dl (8.6-10.3); Creatinine Clr Calc Pharmacy 51.8 ml/min; Est GFR (African American) 39.2 ml/min; Est GFR (Non-African American) 33.8 ml/min; Potassium 4.1 mmol/L (3.5-5.1)
--- NOTE | 2023-09-26 10:56 | Hospitalist Progress Note ---
Date of Service September 26, 2023 Assessment & Plan (1) Hypertensive urgency: Plan: Blood pressure Now under better control With minoxidil 5 mg twice daily, his bradycardia which was attributed to high dose of clonidine has also improved after discontinuing oral clonidine. We will continue clonidine only in patch form Also continue losartan 100 mg daily (2) (HFpEF) heart failure with preserved ejection fraction: Plan: BNP elevated at 231 on arrival, chest x-ray with pulmonary edema, severely elevated blood pressure and shortness of breath on admission Lasix 40 mg IV ordered but patient refuses diuretics as he says it makes his feet hurt Daily weights Last echocardiogram revealed LVEF at 55 to 60%, severe LVH, mild AI Heart healthy, low-sodium diet He appears compensated right now (3) Afib: Plan: Per cardiology, not A-fib with first-degree heart block as seen in previous EKGs. Now worsened by the use of clonidine to control his blood pressure, this has been discontinued. (4) Patient refuses to take medication: Plan: Patient has a lot of reservations about medicines. But has agreed to take some Refused IV hydralazine as he reports it makes his feet hurt too much, Also does not like hydrochlorothiazide Patient also refuses insulin and Lasix Multiple conversations regarding high blood pressure, and risks/benefits of medication refusal which can lead to [place], DVT/PE, stroke, and/or Looking through his records a send this is a recurring issue if and clearly documented in the notes of rn progressive care unit (5) Elevated troponin: Plan: Troponin 76-->51 on arrival, ECG with first-degree AV block, right bundle branch block, without ischemic changes Troponin elevated at baseline; suspect secondary to hypertensive urgency in the setting of severe LVH Continue telemetry monitoring (6) DM2 (diabetes mellitus, type 2): Plan: Last A1c at 6.6% on 06/08/2023 Glucose 211 on admission Patient is not on any diabetic medications, and has refused insulin in the past If patient is amenable, will trial loose SSI with target BSG range 110-140, CF 35, carb ratio 10 T2DM diet BSG ACHS Adjust regimen as needed AM A1c (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 that all his symptoms are due to Lyme disease This has been documented extensively in his medical records (8) Chronic kidney disease, stage 3a: Plan: BUN 27, creatinine 1.47 (around baseline), EGFR 49.4 Avoid nephrotoxic agents where possible Monitor daily BMPs if starting lasix Continue losartan (9) Ambulatory dysfunction: Plan: PT/OT evaluations appreciated Fall precautions (10) PAD (peripheral artery disease): Plan: Known PAD with nonhealing wounds on ankles, evaluated by vascular medicine and no intervention indicated Pulses are nonpalpable (11) Medical non-compliance: (12) Uncontrolled hypertension: Plan Disposition: Continue hospitalization, Social work has sent referrals, awaiting feedback Full code Heart healthy, low-sodium diet (1800 mL fluid restriction) VTE PPx: Lovenox 40 mg SQ q24h Admission and Anticipated Discharge Date Admission Date: September 19, 2023 Subjective Patient seen and examined, Still complains of some dry cough,Which he attributes to mycoplasma Review of Systems Review of Systems: All systems reviewed are negative, apart from the ones contained in the history. Physical Exam Physical Exam: The patient is awake, alert and oriented 3, well developed and well nourished, normocephalic and atraumatic, lying in bed and in no acute distress. HEENT--PERRL, EOMI, mucous membranes and oropharynx mildly dry Neck--supple. No JVD. No bruits. Thyroid normal, trachea midline, no adenopathy. Heart--normal S1 and S2. No murmurs, rubs or gallops. Lungs--clear bilaterally, no respiratory distress, no accessory muscle use. Abdomen--normal bowel sounds and soft. Extremities--no cyanosis or clubbing. No edema. Dermatologic--normal skin turgor, normal color, no abnormal lymph nodes, no rash. Neurologic--cranial nerves II through XII grossly intact. Rheumatologic--normal range of motion. Psychiatric--normal affect. Results & Data Results & Data Vital Signs (Past 12 Hours) Vital Signs Temp Pulse Pulse Resp BP BP Pulse Ox 09/26/23 08:00 49 L 09/26/23 07:52 97.5 F L 50 L 16 143/67 H 96 09/26/23 02:00 97.7 F 54 L 20 144/71 H 98 09/25/23 23:41 54 L 09/25/23 22:57 97.9 F 50 L 18 128/67 97 O2 Del Method 09/26/23 08:00 09/26/23 07:52 Room Air 09/26/23 02:00 Room Air 09/25/23 23:41 09/25/23 22:57 Room Air PG Care Time/CCT Total # of Minutes Spent Total Time Spent with Patient: Total time spent is greater than 50% in coordination of care (as documented) at patient's floor/unit and/or counseling patient: Coding Level of Care Code 09334 SUB INP/OBS CARE 2/35MIN Diagnoses Hypertensive urgency I16.0 (HFpEF) heart failure with preserved ejection fraction I50.30 Afib I48.91 Patient refuses to take medication Z53.20 Elevated troponin R79.89 DM2 (diabetes mellitus, type 2) E11.9 Hypochondriacal neurosis F45.21 Chronic kidney disease, stage 3a N18.31 Ambulatory dysfunction R26.2 PAD (peripheral artery disease) I73.9 Medical non-compliance Z91.199 Uncontrolled hypertension I10 Time Spent (min) 35
--- NOTE | 2023-09-27 10:50 | Hospitalist Progress Note ---
Date of Service September 27, 2023 Assessment & Plan (1) Hypertensive urgency: Plan: Blood pressure Now under better control With minoxidil 5 mg twice daily, his bradycardia which was attributed to high dose of clonidine has also improved after discontinuing oral clonidine. We will continue clonidine only in patch form Also continue losartan 100 mg daily (2) (HFpEF) heart failure with preserved ejection fraction: Plan: BNP elevated at 231 on arrival, chest x-ray with pulmonary edema, severely elevated blood pressure and shortness of breath on admission Lasix 40 mg IV ordered but patient refuses diuretics as he says it makes his feet hurt Daily weights Last echocardiogram revealed LVEF at 55 to 60%, severe LVH, mild AI Heart healthy, low-sodium diet He appears compensated right now (3) Afib: Plan: Per cardiology, not A-fib with first-degree heart block as seen in previous EKGs. Clonidine has been discontinued apart from clonidine patch (4) Patient refuses to take medication: Plan: Patient has a lot of reservations about medicines. But has agreed to take some Refused IV hydralazine as he reports it makes his feet hurt too much, Also does not like hydrochlorothiazide Patient also refuses insulin and Lasix Multiple conversations regarding high blood pressure, and risks/benefits of medication refusal which can lead to NM, DVT/PE, stroke, and/or Looking through his records a send this is a recurring issue if and clearly documented in the notes of job setter (5) Elevated troponin: Plan: Troponin 76-->51 on arrival, ECG with first-degree AV block, right bundle branch block, without ischemic changes Troponin elevated at baseline; suspect secondary to hypertensive urgency in the setting of severe LVH Continue telemetry monitoring (6) DM2 (diabetes mellitus, type 2): Plan: Last A1c at 6.6% on 06/08/2023 Glucose 211 on admission Patient is not on any diabetic medications, and has refused insulin in the past If patient is amenable, will trial loose SSI with target BSG range 110-140, CF 35, carb ratio 10 T2DM diet BSG ACHS Adjust regimen as needed AM A1c (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 that all his symptoms are due to Lyme disease This has been documented extensively in his medical records (8) Leg wound, right: Plan: He has a wound in his right Achilles tendon area According to him he has been using bleach to treat the wound for the past 1 year Will get wound consult (9) Chronic kidney disease, stage 3a: Plan: BUN 27, creatinine 1.47 (around baseline), EGFR 49.4 Avoid nephrotoxic agents where possible Monitor daily BMPs if starting lasix Continue losartan (10) Ambulatory dysfunction: Plan: PT/OT evaluations appreciated Fall precautions (11) PAD (peripheral artery disease): Plan: Known PAD with nonhealing wounds on ankles, evaluated by vascular medicine and no intervention indicated Pulses are nonpalpable (12) Medical non-compliance: (13) Uncontrolled hypertension: Plan Disposition: Continue hospitalization, Social work has sent referrals, awaiting feedback Full code Heart healthy, low-sodium diet (1800 mL fluid restriction) VTE PPx: Lovenox 40 mg SQ q24h Admission and Anticipated Discharge Date Admission Date: September 19, 2023 Subjective Patient seen and examined, Still complains of some dry cough,Which he attributes to mycoplasma, And also stated he has a wound in his right Achilles tendon which he has been using bleach to treat for the past 1 year Review of Systems Review of Systems: All systems reviewed are negative, apart from the ones contained in the history. Physical Exam Physical Exam: The patient is awake, alert and oriented 3, well developed and well nourished, normocephalic and atraumatic, lying in bed and in no acute distress. HEENT--PERRL, EOMI, mucous membranes and oropharynx mildly dry Neck--supple. No JVD. No bruits. Thyroid normal, trachea midline, no adenopathy. Heart--normal S1 and S2. No murmurs, rubs or gallops. Lungs--clear bilaterally, no respiratory distress, no accessory muscle use. Abdomen--normal bowel sounds and soft. Extremities--no cyanosis or clubbing. No edema. Dermatologic--normal skin turgor, normal color, no abnormal lymph nodes, no rash. Neurologic--cranial nerves II through XII grossly intact. Rheumatologic--normal range of motion. Psychiatric--normal affect. Results & Data Results & Data Vital Signs (Past 12 Hours) Vital Signs Temp Pulse Pulse Resp BP BP Pulse Ox 09/27/23 07:33 51 L 09/27/23 07:26 97.5 F L 53 L 20 167/83 H 99 09/27/23 03:11 97.7 F 52 L 16 127/67 99 09/26/23 23:07 97.5 F L 60 16 138/73 94 O2 Del Method 09/27/23 07:33 09/27/23 07:26 Room Air 09/27/23 03:11 Room Air 09/26/23 23:07 Room Air PG Care Time/CCT Total # of Minutes Spent Total Time Spent with Patient: Total time spent is greater than 50% in coordination of care (as documented) at patient's floor/unit and/or counseling patient: Coding Level of Care Code 95606 SUB INP/OBS CARE 2/35MIN Diagnoses Hypertensive urgency I16.0 (HFpEF) heart failure with preserved ejection fraction I50.30 Afib I48.91 Patient refuses to take medication Z53.20 Elevated troponin R79.89 DM2 (diabetes mellitus, type 2) E11.9 Hypochondriacal neurosis F45.21 Leg wound, right S81.801A Chronic kidney disease, stage 3a N18.31 Ambulatory dysfunction R26.2 PAD (peripheral artery disease) I73.9 Medical non-compliance Z91.199 Uncontrolled hypertension I10 Time Spent (min) 35
--- NOTE | 2023-09-28 10:54 | Discharge Summary ---
Date of Service September 28, 2023 Admission HPI Per Admitting Provider Malcolm is a 63-year-old male with PMH of T2DM, neuropathy, CVA, B12 deficiency, HTN, PAD, dyslipidemia, ambulatory dysfunction, chronic wound, FTT, and history AV block. He presented for SOB x 1 month with an acute exacerbation today on 09/18. He reports that he was having trouble breathing both at rest and with exertion, and believes it could be secondary to his high blood pressure. Not worse when he lies flat on his back, but patient does sleep in a recliner. Patient took his losartan this morning, but not his isosorbide mononitrate. He does report good compliance with taking it since he was discharged from the hospital recently. Patient also takes a Fijian herbal supplement called Danii, which she takes for mycoplasma pneumonia and Lyme disease; he believes this increases your blood pressure. Patient moved in with his brother in January 2023. He does have a history of diabetes, but is not currently on diabetic medications, and has declined in the past. He does not use supplemental oxygen at home. He denies any ambulatory assist devices. No falls. He denies smoking, tobacco use, alcohol use, and recreational drug use. Additionally, patient reports that his feet have been hurting more recently; he does have ongoing neuropathy. Patient is hypertensive at 187/97 at time of admission; vitals otherwise stable. ED course: Labetalol 10 mg IV ROS: Patient endorses hot intolerance, CAMARA, chest pressure, SOB at rest this morning (resolved), nausea, and neuropathy in the feet (ongoing). Patient denies fever, chills, dizziness, lightheadedness, chest pain, chest pressure, chest palpitations, chest pain/pressure in the left shoulder/arm/neck, abdominal pain, vomiting, diarrhea, burning with urination, change in urinary/bowel habits, or blood in the urine/stool. Principal Diagnosis HTN Discharge Exam The patient is awake, alert and oriented 3, well developed and well nourished, normocephalic and atraumatic, lying in bed and in no acute distress. HEENT--PERRL, EOMI, mucous membranes and oropharynx mildly dry Neck--supple. No JVD. No bruits. Thyroid normal, trachea midline, no adenopathy. Heart--normal S1 and S2. No murmurs, rubs or gallops. Lungs--clear bilaterally, no respiratory distress, no accessory muscle use. Abdomen--normal bowel sounds and soft. Extremities--no cyanosis or clubbing. No edema. Dermatologic--normal skin turgor, normal color, no abnormal lymph nodes, no rash. Neurologic--cranial nerves II through XII grossly intact. Rheumatologic--normal range of motion. Psychiatric--normal affect. Discharge Data Allergies Allergy/AdvReac Type Severity Reaction Status Date / Time doxycycline Allergy Mild URTICARIA Verified 09/12/23 11:48 Consultations 09/19/23 14:59 ED Decision to Admit Stat 09/21/23 16:03 Consult Psychiatry Routine 09/24/23 12:37 Consult Cardiology Routine Ordered Studies 09/19/23 12:55 CT angio chest PE protocol Stat Hospital Course (1) Hypertensive urgency: Blood pressure Now under better control With minoxidil 5 mg twice daily, his bradycardia which was attributed to high dose of clonidine has also improved after discontinuing oral clonidine. We will continue clonidine only in patch form Also continue losartan 100 mg daily (2) (HFpEF) heart failure with preserved ejection fraction: BNP elevated at 231 on arrival, chest x-ray with pulmonary edema, severely elevated blood pressure and shortness of breath on admission Lasix 40 mg IV ordered but patient refuses diuretics as he says it makes his feet hurt Daily weights Last echocardiogram revealed LVEF at 55 to 60%, severe LVH, mild AI Heart healthy, low-sodium diet He appears compensated right now (3) Afib: Per cardiology, not A-fib with first-degree heart block as seen in previous EKGs. Clonidine has been discontinued apart from clonidine patch (4) Patient refuses to take medication: Patient has a lot of reservations about medicines. But has agreed to take some Refused IV hydralazine as he reports it makes his feet hurt too much, Also does not like hydrochlorothiazide Patient also refuses insulin and Lasix Multiple conversations regarding high blood pressure, and risks/benefits of medication refusal which can lead to ND, DVT/PE, stroke, and/or Looking through his records a send this is a recurring issue if and clearly documented in the notes of occupational therapy supervisor (5) Elevated troponin: Troponin 76-->51 on arrival, ECG with first-degree AV block, right bundle branch block, without ischemic changes Troponin elevated at baseline; suspect secondary to hypertensive urgency in the setting of severe LVH Continue telemetry monitoring (6) DM2 (diabetes mellitus, type 2): Last A1c at 6.6% on 06/08/2023 Glucose 211 on admission Patient is not on any diabetic medications, and has refused insulin in the past If patient is amenable, will trial loose SSI with target BSG range 110-140, CF 35, carb ratio 10 T2DM diet BSG ACHS Adjust regimen as needed AM A1c (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 that all his symptoms are due to Lyme disease This has been documented extensively in his medical records (8) Leg wound, right: He has a wound in his right Achilles tendon area According to him he has been using bleach to treat the wound for the past 1 year Will get wound consult (9) Chronic kidney disease, stage 3a: BUN 27, creatinine 1.47 (around baseline), EGFR 49.4 Avoid nephrotoxic agents where possible Monitor daily BMPs if starting lasix Continue losartan (10) Ambulatory dysfunction: PT/OT evaluations appreciated Fall precautions (11) PAD (peripheral artery disease): Known PAD with nonhealing wounds on ankles, evaluated by vascular medicine and no intervention indicated Pulses are nonpalpable (12) Medical non-compliance: (13) Uncontrolled hypertension: Plan Disposition: Discharge to SNF at [facility] Full code Heart healthy, low-sodium diet (1800 mL fluid restriction) VTE PPx: Lovenox 40 mg SQ q24h Total Time Total Time Spent Total Time Spent (In Minutes): 35 Discharge Plan Discharge Items Patient Disposition: Transfer Correction Fac Reason For Visit: HTN EMERGENCY Discharge Diagnosis: HTN Condition on Discharge: Fair Activity: Resume your previous activity Non-emergency contact: Primary Care Provider and Central Supply Nurse Call non-emergency contact if: you have any medication questions Follow-up/Referrals: Janessa Nick PA-C [Primary Care Provider] - Diet: Regular Addtl Attending Provider Instructions: Please make arrangement to follow-up with her regular PCP Pending Studies at Discharge: No Stand-Alone Forms: My [employer] Skilled Items Patient informed of condition?: Yes DNR: No Discharge Level of Care: Skilled Communicable Disease: No Discharge Prognosis: Stable Lines: None Urinary Catheter: No Medications and DC Order Prescriptions: New minoxidil 2.5 mg Tablet 5 mg PO BID 30 Days Qty: 120 0RF aspirin 81 mg Tablet,Delayed Release (Dr/Ec) 81 mg PO QAM 30 Days Qty: 30 0RF Check Clonidine Patch 1 ea Not Applicable QS 30 Days Qty: 10 0RF Continued Danii Supplement 1 cap PO DAILY Rx Instructions: otc, as directed. nystatin [Nyamyc] 100,000 unit/gram powder 1 applic TOPICAL DAILY PRN (Reason: flare under skin folds) losartan 50 mg Tablet 100 mg PO DAILY Qty: 60 1RF pregabalin 100 mg capsule 100 mg PO BID Qty: 60 0RF Discontinued minoxidil 2.5 mg tablet 2.5 mg PO Q OTHER DAY isosorbide mononitrate 30 mg Tablet Extended Release 24 Hr 30 mg PO BID Qty: 60 1RF Discharge Orders: Discharge Order (Routine); Ordered 09/28/23 Ordered By: Mariana oPe/Other Patient Handouts: Managing Type 2 Diabetes, Diabetes: Meal Planning Admission Data Admit Date/Time: 09/19/23 15:48 Attending Provider: Mariana Pinto Admit Provider: Estelita Durham Primary Care Provider: Janessa Nick Other Providers: Estelita Durham; Jen Rivera; Darryl Dutton; Umer Eagle Jr; Sally Chamorro; Divya Proctor; Erwin Mercedes; Dhruv Rivera,[facility]; Jason Peña Coding Level of Care Code 02318 INP/OBS DISCH >30 MIN Diagnoses Hypertensive urgency I16.0 (HFpEF) heart failure with preserved ejection fraction I50.30 Afib I48.91 Patient refuses to take medication Z53.20 Elevated troponin R79.89 DM2 (diabetes mellitus, type 2) E11.9 Hypochondriacal neurosis F45.21 Leg wound, right S81.801A Chronic kidney disease, stage 3a N18.31 Ambulatory dysfunction R26.2 PAD (peripheral artery disease) I73.9 Medical non-compliance Z91.199 Uncontrolled hypertension I10 Time Spent (min) 35
--- NOTE | 2023-09-29 12:50 | Coding Query ---
CONGESTIVE HEART FAILURE To Promote full compliance with coding requirements relating to patient care, physician participation is requested in all cases of ager operator uncertainty. Please assist us with the following questions. A diagnosis of Congestive Heart Failure is documented in the patient's medical record. To accurately code this diagnosis and to compare patient severity, we ask that you specify the type of heart failure by placing an X within the parenthesis (x). Discharge summary documented BNP elevated at 231 on admission. CXR with pulmonary edema. Severe hypertension. IV 40 mg Lasix ordered, pt refusal. SYSTOLIC HEART FAILURE ( ) Acute ( x) Chronic ( ) Acute on Chronic ( ) Rheumatic ( ) Unknown DIASTOLIC HEART FAILURE ( ) Acute ( ) Chronic ( ) Acute on Chronic ( ) Rheumatic (x ) Unknown COMBINED SYSTOLIC AND DIASTOLIC HEART FAILURE ( ) Acute ( ) Chronic ( ) Acute on Chronic ( ) Rheumatic (x ) Unknown Was the CHF Present On Admission? Please check the appropriate box: (x ) Present on Admission ( ) Not Present On Admission ( ) Clinically undetermined Thank you [facility]
== END 2023-09-28 15:59 | DRG 305 ==
LOC: SUATTDRO → ED 11:29 → SUATTDRO 15:48 → 4W 15:48
DX: Z88.1 Allergy status to other antibiotic agents; R79.89 Other specified abnormal findings of blood chemistry; I50.32 Chronic diastolic (congestive) heart failure; N18.31 Chronic kidney disease, stage 3a; E11.52 Type 2 diabetes mellitus with diabetic peripheral angiopathy with gangrene; E11.42 Type 2 diabetes mellitus with diabetic polyneuropathy; I13.0 Hypertensive heart and chronic kidney disease with heart failure and stage 1 through stage 4 chronic kidney disease, or unspecified chronic kidney disease; Z86.73 Personal history of transient ischemic attack (TIA), and cerebral infarction without residual deficits; F45.21 Hypochondriasis; I44.0 Atrioventricular block, first degree; Z91.148 Patient's other noncompliance with medication regimen for other reason; F60.89 Other specific personality disorders; I16.0 Hypertensive urgency; X58.XXXA Exposure to other specified factors, initial encounter; E53.8 Deficiency of other specified B group vitamins; I45.10 Unspecified right bundle-branch block; S81.801A Unspecified open wound, right lower leg, initial encounter; F42.8 Other obsessive-compulsive disorder; Y92.89 Other specified places as the place of occurrence of the external cause; R00.1 Bradycardia, unspecified; Y92.239 Unspecified place in hospital as the place of occurrence of the external cause; E11.22 Type 2 diabetes mellitus with diabetic chronic kidney disease; T46.5X5A Adverse effect of other antihypertensive drugs, initial encounter